=== PATIENT | female | born 1985 | race American Indian/Alaskan Native ===

== ENCOUNTER 2018-12-19 14:33 | Inpatient (IN) | payer MEDICAID, OTHER ==
[2018-12-19] MEDS ORDERED: Sodium Chloride 0.9% 1,000 ML IV ONE (15:01)
[2018-12-19] MEDS ORDERED: Ketorolac 30 MG/ML SDV IVPUSH ONE (15:01)
--- NOTE | 2018-12-19 15:19 | EDM.PDOC ---
ED HPI GENERAL MEDICAL PROBLEM - General Chief Complaint: Skin Complaint Stated Complaint: TWO HARD BOILS ON BUTTOCKS Time Seen by Provider: 12/19/18 14:39 Source of Information: Reports: Patient History Limitations: Reports: No Limitations - History of Present Illness INITIAL COMMENTS - FREE TEXT/NARRATIVE: HISTORY AND PHYSICAL: History of present illness: Patient is a 33-year-old female presents to the ED today with concern of infection/boils on her right butt cheek. Patient states she has had a history of these being infected in the past, however, over a few days a generally go away. Patient states this current infection has been ongoing for about a week and over the past few days has worsened more than her normal infections. Patient states she often has infections like this under her breasts and her armpits and groin area. Patient states she has not taken anything at home for her symptoms. Patient has subjective fevers at home but has not checked her temperature. Patient denies chest pain, shortness of breath, or cough. Denies headache, neck stiff ness, change in vision, syncope, or near syncope. Denies nausea, vomiting , abdominal pain, diarrhea, constipation, or dysuria. Has not noted any blood in urine or stool. Patient has been eating and drinking appropriately. Review of systems: As per history of present illness and below otherwise all systems reviewed and negative. Past medical history: As per history of present illness and as reviewed below otherwise noncontributory. Surgical history: As per history of present illness and as reviewed below otherwise noncontributory. Social history: See social history for further information Family history: As per history of present illness and as reviewed below otherwise noncontributory. Physical exam: General: Patient is alert, oriented, and in no acute distress. Patient laying on left side but comfortably on exam table. HEENT: Atraumatic, normocephalic, pupils equal and reactive bilaterally, negative for conjunctival pallor or scleral icterus, mucous membranes moist, TMs normal bilaterally, throat clear, neck supple, nontender, trachea midline. No drooling or trismus noted. No meningeal signs. No hot potato voice noted. Lungs: Clear to auscultation, breath sounds equal bilaterally, chest nontender. Heart: S1S2, regular rate and rhythm without overt murmur Abdomen: Obese Soft, nondistended, nontender. Negative for masses or hepatosplenomegaly. Negative for costovertebral tenderness. Pelvis: Stable nontender. Genitourinary: Deferred. Rectal: Deferred. Skin: Generalized folliculitis of skin. However, area of cellulitis of the right buttocks approximately 15c, by 11cm that severely painful to palpation. Underlying induration without obvious abscess. Area was outlined with surgical pen. Extremities: Atraumatic, negative for cords or calf pain. Neurovascular unremarkable. Neuro: Awake, alert, oriented. Cranial nerves II through XII unremarkable. Cerebellum unremarkable. Motor and sensory unremarkable throughout. Exam nonfocal. Notes: Dr. Silva was directly involved in patient care. Dr. Carrion was contacted on patient and will admit to observation. Voices understanding and is agreeable to plan of care. Denies any further questions or concerns at this time. Diagnostics: CBC, CMP, UA, lactate, blood cultures 2, Therapeutics: Saline, Toradol, vancomycin, morphine Impression: Cellulitis of right buttocks Leukocytosis Plan: 1. Admit to observation to Dr. Carrion. Definitive disposition and diagnosis as appropriate pending reevaluation and review of above. buttock Pain Score (Numeric/FACES): 9 - Related Data Allergies Allergy/AdvReac Type Severity Reaction Status Date / Time No Known Allergies Allergy Verified 12/06/14 05:34 Home Meds: Home Meds . 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: Neurological History: Reports: None Psychiatric History: Reports: None Endocrine/Metabolic History: Reports: None Hematologic History: Reports: None Oncologic (Cancer) History: Reports: None Dermatologic History: Reports: None - Infectious Disease History Infectious Disease History: Reports: MRSA - Past Surgical History Female Surgical History: Reports: None Other Musculoskeletal Surgeries/Procedures:: multiple left knee surgeries per pt Social & Family History - Family History Family Medical History: Noncontributory - Tobacco Use Smoking Status *Q: Current Every Day Smoker Years of Tobacco use: 20 Packs/Tins Daily: 1 ED ROS GENERAL - Review of Systems Review Of Systems: ROS reveals no pertinent complaints other than HPI. ED EXAM, SKIN/RASH Exam: See Below (See dictation) Course - Vital Signs Last Recorded V/S: Last Vital Signs Temp 36.6 C 12/19/18 14:44 Pulse 106 H 12/19/18 14:44 Resp 18 12/19/18 14:44 BP 141/74 H 12/19/18 14:44 Pulse Ox 95 12/19/18 14:44 - Orders/Labs/Meds Orders: Active Orders 24 hr Category Date Time Status Admission Status [Patient Status] [ADT] Stat ADT 12/19/18 16:07 Ordered CULTURE BLOOD [BC] Stat Lab 12/19/18 15:28 Received CULTURE BLOOD [BC] Stat Lab 12/19/18 15:28 Received UA RFX REI AND CULT IF INDIC [URIN] Stat Lab 12/19/18 15:01 Ordered Morphine Med 12/19/18 16:09 Once 2 mg IVPUSH ONETIME ONE Vancomycin [Vancocin] 1 gm Med 12/19/18 15:19 Active Sodium Chloride 0.9% [Normal Saline] 250 ml IV ONETIME Blood Culture x2 Reflex Set [OM.PC] Stat Oth 12/19/18 15:19 Ordered Medication Orders Vancomycin HCl 1 gm/ Sodium (Chloride) 250 mls @ 250 mls/hr IV ONETIME ONE Stop: 12/19/18 16:18 Last Admin: 12/19/18 15:44 Dose: 250 mls/hr Labs: Laboratory Tests 12/19/18 12/19/18 12/19/18 Range/Units 15:01 15:17 15:17 WBC 16.90 H (4.0-11.0) K/uL RBC 4.13 L (4.30-5.90) M/uL Hgb 12.3 (12.0-16.0) g/dL Hct 37.6 (36.0-46.0) % MCV 91.0 (80.0-98.0) fL MCH 29.8 (27.0-32.0) pg MCHC 32.7 (31.0-37.0) g/dL RDW Std Deviation 46.0 (28.0-62.0) fl RDW Coeff of Rachelle 14 (11.0-15.0) % Plt Count 235 (150-400) K/uL MPV 9.10 (7.40-12.00) fL Neut % (Auto) 83.3 H (48.0-80.0) % Lymph % (Auto) 7.5 L (16.0-40.0) % [place] % (Auto) 8.6 (0.0-15.0) % Eos % (Auto) 0.5 (0.0-7.0) % Baso % (Auto) 0.1 (0.0-1.5) % Neut # (Auto) 14.1 H (1.4-5.7) K/uL Lymph # (Auto) 1.3 (0.6-2.4) K/uL [place] # (Auto) 1.5 H (0.0-0.8) K/uL Eos # (Auto) 0.1 (0.0-0.7) K/uL Baso # (Auto) 0.0 (0.0-0.1) K/uL Nucleated RBC % 0.0 /100WBC Nucleated RBCs # 0 K/uL Lactate 1.2 (0.20-2.00) mmol/L Sodium 136 (136-145) mmol/L Potassium 3.9 (3.5-5.1) mmol/L Chloride 104 (98-107) mmol/L Carbon Dioxide 22.7 (21.0-32.0) mmol/L BUN 8 (7.0-18.0) mg/dL Creatinine 0.9 (0.6-1.0) mg/dL Est Cr Clr Drug Dosing 79.25 mL/min Estimated GFR (MDRD) > 60.0 ml/min Glucose 142 H (74-106) mg/dL Calcium 8.5 (8.5-10.1) mg/dL Total Bilirubin 0.5 (0.2-1.0) mg/dL AST 8 L (15-37) IU/L ALT 11 L (14-63) IU/L Alkaline Phosphatase 91 (46-116) U/L Total Protein 7.2 (6.4-8.2) g/dL Albumin 2.6 L (3.4-5.0) g/dL Globulin 4.6 H (2.6-4.0) g/dL Albumin/Globulin Ratio 0.6 L (0.9-1.6) Meds: Medications Generic Name Dose Route Start Last Admin Trade Name Freq PRN Reason Stop Dose Admin Vancomycin HCl 1 gm/ Sodium 250 mls @ 250 mls/hr 12/19/18 15:19 12/19/18 15: 44 Chloride IV 12/19/18 16:18 250 mls/hr ONETIME ONE Administration Discontinued Medications Generic Name Dose Route Start Last Admin Trade Name Vanessa PRN Reason Stop Dose Admin Sodium Chloride 1,000 mls @ 999 mls/hr 12/19/18 15:01 12/19/18 15:21 Normal Saline IV 12/19/18 16:01 999 mls/hr STAT ONE Administration Ketorolac Tromethamine 30 mg 12/19/18 15:01 12/19/18 15:21 Toradol IVPUSH 12/19/18 15:02 30 mg ONETIME ONE Administration Departure - Departure Time of Disposition: 16:10 Disposition: Refer to Observation Clinical Impression: Cellulitis of buttock, right Leukocytosis Qualifiers: Leukocytosis type: unspecified Qualified Code(s): D72.829 - Elevated white blood cell count, unspecified - Discharge Information Referrals: [facility] [Primary Care Provider] - - My Orders Last 24 Hours: My Active Orders 12/19/18 15:01 UA RFX REI AND CULT IF INDIC [URIN] Stat 12/19/18 15:19 Vancomycin [Vancocin] 1 gm Sodium Chloride 0.9% [Normal Saline] 250 ml IV ONETIME Blood Culture x2 Reflex Set [OM.PC] Stat 12/19/18 15:28 CULTURE BLOOD [BC] Stat CULTURE BLOOD [BC] Stat 12/19/18 16:07 Admission Status [Patient Status] [ADT] Stat 12/19/18 16:09 Morphine 2 mg IVPUSH ONETIME ONE - Assessment/Plan Last 24 Hours: My Active Orders 12/19/18 15:01 UA RFX REI AND CULT IF INDIC [URIN] Stat 12/19/18 15:19 Vancomycin [Vancocin] 1 gm Sodium Chloride 0.9% [Normal Saline] 250 ml IV ONETIME Blood Culture x2 Reflex Set [OM.PC] Stat 12/19/18 15:28 CULTURE BLOOD [BC] Stat CULTURE BLOOD [BC] Stat 12/19/18 16:07 Admission Status [Patient Status] [ADT] Stat 12/19/18 16:09 Morphine 2 mg IVPUSH ONETIME ONE
[2018-12-19 15:45] LABS: CHLORIDE,CL 104 mmol/L (98-107); SODIUM,NA 136 mmol/L (136-145)
[2018-12-19] MEDS ORDERED: Morphine 2 MG/ML Syringe IVPUSH ONE (16:09)
[2018-12-19] MEDS ORDERED: Temazepam 15 MG Cap PO PRN (16:28)
[2018-12-19] MEDS ORDERED: Ondansetron 4 MG Tab.DIS PO PRN (16:28)
[2018-12-19] MEDS ORDERED: Docusate Sodium 100 MG Cap PO PRN (16:28)
[2018-12-19] MEDS ORDERED: Enoxaparin 40 MG/0.4 ML Syringe SUBCUT SCH (16:30)
--- NOTE | 2018-12-19 16:38 | PCM.HP ---
H&P History of Present Illness - General Date of Service: 12/19/18 Admit Problem/Dx: Admission Diagnosis/Problem Admission Diagnosis/Problem Cellulitis Source of Information: Patient History Limitations: Reports: No Limitations - History of Present Illness Initial Comments - Free Text/Narative: The patient is a 33-year-old lady who has presented to the emergency department with a complaint of infection on her right buttocks. The patient says this started out as one or 2 small boils. She said that this started out and got worse on Thursday and the patient came in today out of concern for increased pain and other symptoms. The patient has a history of hidradenitis suppurativa and a history of MRSA skin infections. The patient says that she has had fever and chills with this. She has no history of diabetes mellitus. The patient says that she has pain in her right buttocks which radiates down into her hip. Patient reports that she has had some nausea associated with this. The patient has had no specific aggravating or relieving factors. The patient does not take any medications chronically. Onset of Symptoms: Reports: Gradual Duration of Symptoms: Reports: Day(s):, Getting Worse Location: Reports: Lower Extremity, Right Quality: Reports: Ache, Pressure, Throbbing Severity: Moderate Improves with: Reports: Rest Worsens with: Reports: Movement Context: Denies: Sick Contact, Trauma Associated Symptoms: Reports: Fever/Chills, Nausea/Vomiting buttock Pain Score (Numeric/FACES): 9 - Related Data Allergies/Adverse Reactions: Allergies Allergy/AdvReac Type Severity Reaction Status Date / Time No Known Allergies Allergy Verified 12/06/14 05:34 Home Medications: Home Meds . 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: Neurological History: Reports: None Psychiatric History: Reports: None Endocrine/Metabolic History: Reports: None Hematologic History: Reports: None Oncologic (Cancer) History: Reports: None Dermatologic History: Reports: Chronic Cellulitis, Other (See Below) ( Hidradenitis) - Infectious Disease History Infectious Disease History: Reports: MRSA - Past Surgical History Female Surgical History: Reports: None Other Musculoskeletal Surgeries/Procedures:: multiple left knee surgeries per pt Social & Family History - Family History Family Medical History: Noncontributory - Tobacco Use Smoking Status *Q: Current Every Day Smoker Years of Tobacco use: 20 Packs/Tins Daily: 1 - Alcohol Use Alcohol Use History: No - Living Situation & Occupation Living situation: Reports: Single, with Family Occupation: Unemployed H&P Review of Systems - Review of Systems: Review Of Systems: See Below General: Reports: Fever, Chills HEENT: Reports: No Symptoms Pulmonary: Reports: No Symptoms Cardiovascular: Reports: No Symptoms Gastrointestinal: Reports: Nausea. Denies: Vomiting Genitourinary: Reports: No Symptoms Musculoskeletal: Reports: No Symptoms Skin: Reports: Erythema, Wound Psychiatric: Reports: No Symptoms Neurological: Reports: No Symptoms Hematologic/Lymphatic: Reports: No Symptoms Immunologic: Reports: No Symptoms Exam - Exam Exam: See Below - Vital Signs Vital Signs: Last Vital Signs Temp 36.8 C 12/19/18 16:00 Pulse 85 12/19/18 16:00 Resp 16 12/19/18 16:00 BP 124/85 12/19/18 16:00 Pulse Ox 99 12/19/18 16:00 Weight: 122.47 kg - Exam Quality Assessment: No: Supplemental Oxygen General: Alert, Oriented, Cooperative, Mild Distress HEENT: Conjunctiva Clear, EACs Clear, EOMI, Nares Patent, PERRLA. No: Mucosa Moist & [place] (Dry) Neck: Supple, Trachea Midline Lungs: Clear to Auscultation, Normal Respiratory Effort Cardiovascular: Regular Rate, Regular Rhythm GI/Abdominal Exam: Normal Bowel Sounds, Soft, No Distention Back Exam: Normal Inspection, Full Range of Motion Extremities: Normal Inspection, No Pedal Edema Skin: Other (Area of cellulitis surrounding 2 boils mid gluteal area, minor drainage) Neuro Extensive - Mental Status: Alert, Oriented x3 Psychiatric: Alert, Normal Affect, Normal Mood - Patient Data Lab Results Last 24 hrs: Laboratory Results - last 24 hr 12/19/18 12/19/18 12/19/18 Range/Units 15:01 15:17 15:17 WBC 16.90 H (4.0-11.0) K/uL RBC 4.13 L (4.30-5.90) M/uL Hgb 12.3 (12.0-16.0) g/dL Hct 37.6 (36.0-46.0) % MCV 91.0 (80.0-98.0) fL MCH 29.8 (27.0-32.0) pg MCHC 32.7 (31.0-37.0) g/dL RDW Std Deviation 46.0 (28.0-62.0) fl RDW Coeff of Rachelle 14 (11.0-15.0) % Plt Count 235 (150-400) K/uL MPV 9.10 (7.40-12.00) fL Neut % (Auto) 83.3 H (48.0-80.0) % Lymph % (Auto) 7.5 L (16.0-40.0) % [place] % (Auto) 8.6 (0.0-15.0) % Eos % (Auto) 0.5 (0.0-7.0) % Baso % (Auto) 0.1 (0.0-1.5) % Neut # (Auto) 14.1 H (1.4-5.7) K/uL Lymph # (Auto) 1.3 (0.6-2.4) K/uL [place] # (Auto) 1.5 H (0.0-0.8) K/uL Eos # (Auto) 0.1 (0.0-0.7) K/uL Baso # (Auto) 0.0 (0.0-0.1) K/uL Nucleated RBC % 0.0 /100WBC Nucleated RBCs # 0 K/uL Lactate 1.2 (0.20-2.00) mmol/L Sodium 136 (136-145) mmol/L Potassium 3.9 (3.5-5.1) mmol/L Chloride 104 (98-107) mmol/L Carbon Dioxide 22.7 (21.0-32.0) mmol/L BUN 8 (7.0-18.0) mg/dL Creatinine 0.9 (0.6-1.0) mg/dL Est Cr Clr Drug Dosing 79.25 mL/min Estimated GFR (MDRD) > 60.0 ml/min Glucose 142 H (74-106) mg/dL Calcium 8.5 (8.5-10.1) mg/dL Total Bilirubin 0.5 (0.2-1.0) mg/dL AST 8 L (15-37) IU/L ALT 11 L (14-63) IU/L Alkaline Phosphatase 91 (46-116) U/L Total Protein 7.2 (6.4-8.2) g/dL Albumin 2.6 L (3.4-5.0) g/dL Globulin 4.6 H (2.6-4.0) g/dL Albumin/Globulin Ratio 0.6 L (0.9-1.6) Result Diagrams: 12/19/18 15:01 12/19/18 15:17 - Problem List (1) Cellulitis of buttock, right SNOMED Code(s): 46220166 ICD Code: L03.317 - CELLULITIS OF BUTTOCK Status: Acute Priority: High Current Visit: Yes (2) History of MRSA infection SNOMED Code(s): 203874200, 589376959 ICD Code: Z86.14 - PERSONAL HISTORY OF METHICILLIN RESIS STAPH INFECTION Status: Chronic Priority: High Current Visit: Yes (3) Hyperglycemia SNOMED Code(s): 05947105 ICD Code: R73.9 - HYPERGLYCEMIA, UNSPECIFIED Status: Acute Priority: High Current Visit: Yes (4) Leukocytosis SNOMED Code(s): 389030690, 751112334 ICD Code: D72.829 - ELEVATED WHITE BLOOD CELL COUNT, UNSPECIFIED Status: Acute Priority: High Current Visit: Yes Qualifiers: Leukocytosis type: unspecified Qualified Code(s): D72.829 - Elevated white blood cell count, unspecified (5) Morbid obesity with BMI of 40.0-44.9, adult SNOMED Code(s): 063090080, 85677628272419 ICD Code: E66.01 - MORBID (SEVERE) OBESITY DUE TO EXCESS CALORIES; Z68.41 - BODY MASS INDEX (BMI) 40.0-44.9, ADULT Status: Chronic Priority: High Current Visit: Yes (6) Tobacco abuse SNOMED Code(s): 552123777 ICD Code: Z72.0 - TOBACCO USE Status: Chronic Priority: Medium Current Visit: Yes Problem List Initiated/Reviewed/Updated: Yes Orders Last 24hrs: Active Orders 24 hr Category Date Time Status Admission Status [Patient Status] [ADT] Stat ADT 12/19/18 16:07 Active Oxygen Therapy [RC] PRN Care 12/19/18 16:28 Active Up ad Adamaris [RC] ASDIRECTED Care 12/19/18 16:28 Active VTE/DVT Education [RC] PER UNIT ROUTINE Care 12/19/18 16:28 Active Vital Signs [RC] Q4H Care 12/19/18 16:28 Active Heart Healthy Diet [DIET] Diet 12/19/18 Breakfast Active CBC WITH AUTO DIFF [HEME] AM Lab 12/20/18 05:11 Ordered COMPREHENSIVE METABOLIC PN,CMP [CHEM] AM Lab 12/20/18 05:11 Ordered CULTURE BLOOD [BC] Stat Lab 12/19/18 15:28 Received CULTURE BLOOD [BC] Stat Lab 12/19/18 15:28 Received GLYCOSYLATED HEMOGLOBIN,HGBA1C [CHEM] Routine Lab 12/19/18 16:32 Ordered UA RFX REI AND CULT IF INDIC [URIN] Stat Lab 12/19/18 15:01 Ordered Acetaminophen [Tylenol] Med 12/19/18 16:28 Ordered 650 mg PO Q4H PRN Clindamycin Phosphate [Cleocin] 300 mg Med 12/19/18 16:30 Ordered Sodium Chloride 0.9% [Normal Saline] 50 ml IV Q8H Docusate Sodium [Colace] Med 12/19/18 16:28 Ordered 100 mg PO BID PRN Enoxaparin [Lovenox] Med 12/19/18 16:30 Ordered 40 mg SUBCUT Q24H Nicotine [Habitrol] Med 12/20/18 09:00 Ordered 14 mg TRDERM DAILY Ondansetron [Zofran ODT] Med 12/19/18 16:28 Ordered 4 mg PO Q6H PRN Sodium Chloride 0.9% [Normal Saline] 1,000 ml Med 12/19/18 16:30 Ordered IV ASDIRECTED Temazepam [Restoril] Med 12/19/18 16:28 Ordered 15 mg PO BEDTIME PRN oxyCODONE Med 12/19/18 16:28 Ordered 5 mg PO Q4H PRN Blood Culture x2 Reflex Set [OM.PC] Stat Oth 12/19/18 15:19 Ordered Resuscitation Status Routine Resus Stat 12/19/18 16:28 Ordered Medication Orders Acetaminophen (Tylenol) 650 mg PO Q4H PRN PRN Reason: Pain (Mild 1-3)/fever Docusate Sodium (Colace) 100 mg PO BID PRN PRN Reason: Constipation Enoxaparin Sodium (Lovenox) 40 mg SUBCUT Q24H JON Clindamycin Phosphate 300 mg/ (Sodium Chloride) 52 mls @ 100 mls/hr IV Q8H JON Sodium Chloride (Normal Saline) 1,000 mls @ 100 mls/hr IV ASDIRECTED [facility] Nicotine (Habitrol) 14 mg TRDERM DAILY [facility] Ondansetron HCl (Zofran Odt) 4 mg PO Q6H PRN PRN Reason: nausea, able to take PO Oxycodone HCl (Oxycodone) 5 mg PO Q4H PRN PRN Reason: Pain (moderate 4-6) Temazepam (Restoril) 15 mg PO BEDTIME PRN PRN Reason: Sleep Assessment/Plan Comment:: The patient is a 33-year-old lady who has a history of hidradenitis as well as MRSA infection of the skin. The patient should also be kept on contact isolation. She will be admitted to observation secondary to cellulitis of her right buttocks. I've ordered vancomycin with pharmacy to dose as well as clindamycin 300 mg every 8 hours. Repeat laboratory studies been ordered in the morning. The patient's lactate was also noted to be normal. She does have an elevation in her blood sugar and a family history of diabetes therefore I've ordered a hemoglobin A1c. The patient has been strongly counseled with regards to smoking cessation. The patient will also be kept on a heart healthy diet while in hospital. The patient will have DVT prophylaxis with the use of Lovenox 30 mg subcutaneous daily. She is also been encouraged to ambulate. Patient's pain will be controlled with the use of narcotics as necessary. The patient should be appropriate once her leukocytosis is resolved and cellulitis is improved.
[2018-12-19 16:55] LABS: HEMOGLOBIN A1C 5.7 % (4.5-6.2)
[2018-12-19] MEDS: Sodium Chloride 0.9% 1,000 ML IV SCH (17:13)
[2018-12-19] MEDS: Clindamycin Phosphate in D5W 300 MG in Premix Bag 1 BAG IV SCH ×4 (17:13→23:30)
[2018-12-19] MEDS: Enoxaparin 40 MG/0.4 ML Syringe SUBCUT SCH (18:09)
[2018-12-19] MEDS: oxyCODONE 5 MG Tab PO PRN ×2 (19:20→23:27)
[2018-12-20] MEDS: oxyCODONE 5 MG Tab PO PRN ×4 (03:51→18:16)
[2018-12-20] MEDS: Sodium Chloride 0.9% 1,000 ML IV SCH ×3 (03:51→17:57)
[2018-12-20 06:09] LABS: CHLORIDE,CL 105 mmol/L (98-107); SODIUM,NA 137 mmol/L (136-145)
[2018-12-20] MEDS: Clindamycin Phosphate in D5W 300 MG in Premix Bag 1 BAG IV SCH ×2 (08:09)
[2018-12-20] MEDS: Nicotine 14 MG/24 Hr Patch TRDERM SCH (08:15)
[2018-12-20] MEDS: Acetaminophen 325 MG Tab PO PRN ×2 (08:28→18:16)
[2018-12-20] MEDS ORDERED: Sodium Chloride 0.9% 1,000 ML IV ONE (08:45)
--- NOTE | 2018-12-20 09:09 | PCM.PN ---
<Teresa Cavazos M - Last Filed: 12/20/18 10:29> - General Info Date of Service: 12/20/18 Admission Dx/Problem (Free Text): Admission Diagnosis/Problem Admission Diagnosis/Problem Cellulitis Subjective Update: Complains of worsening pain this morning, to R buttock. Fever this am as well. No chest pain or SOB. No abdominal pain. Functional Status: Reports: Tolerating Diet, Ambulating, Urinating. Denies: Pain Controlled - Review of Systems HEENT: Reports: No Symptoms. Denies: Headaches, Sore Throat Pulmonary: Reports: No Symptoms. Denies: Shortness of Breath Cardiovascular: Reports: No Symptoms. Denies: Chest Pain Gastrointestinal: Reports: No Symptoms. Denies: Abdominal Pain, Nausea, Vomiting Genitourinary: Reports: No Symptoms Musculoskeletal: Reports: No Symptoms Skin: Reports: Other (boil noted to R buttock, redness and tenderness) Neurological: Reports: No Symptoms Psychiatric: Reports: No Symptoms - Patient Data Vitals - Most Recent: Last Vital Signs Temp 215.2 F H 12/20/18 08:28 Pulse 100 12/20/18 08:04 Resp 20 12/20/18 08:04 BP 102/68 12/20/18 08:04 Pulse Ox 94 L 12/20/18 08:04 Weight - Most Recent: 110.818 kg I&O - Last 24 Hours: Intake & Output 12/19/18 12/20/18 12/20/18 22:59 06:59 14:59 Intake Total 390 50 Output Total 300 Balance 90 50 Lab Results Last 24 Hours: Laboratory Results - last 24 hr 12/19/18 12/19/18 12/19/18 Range/Units 15:01 15:17 15:17 WBC 16.90 H (4.0-11.0) K/uL RBC 4.13 L (4.30-5.90) M/uL Hgb 12.3 (12.0-16.0) g/dL Hct 37.6 (36.0-46.0) % MCV 91.0 (80.0-98.0) fL MCH 29.8 (27.0-32.0) pg MCHC 32.7 (31.0-37.0) g/dL RDW Std Deviation 46.0 (28.0-62.0) fl RDW Coeff of Rachelle 14 (11.0-15.0) % Plt Count 235 (150-400) K/uL MPV 9.10 (7.40-12.00) fL Neut % (Auto) 83.3 H (48.0-80.0) % Lymph % (Auto) 7.5 L (16.0-40.0) % Bay % (Auto) 8.6 (0.0-15.0) % Eos % (Auto) 0.5 (0.0-7.0) % Baso % (Auto) 0.1 (0.0-1.5) % Neut # (Auto) 14.1 H (1.4-5.7) K/uL Lymph # (Auto) 1.3 (0.6-2.4) K/uL Bay # (Auto) 1.5 H (0.0-0.8) K/uL Eos # (Auto) 0.1 (0.0-0.7) K/uL Baso # (Auto) 0.0 (0.0-0.1) K/uL Nucleated RBC % 0.0 /100WBC Nucleated RBCs # 0 K/uL Lactate 1.2 (0.20-2.00) mmol/L Sodium 136 (136-145) mmol/L Potassium 3.9 (3.5-5.1) mmol/L Chloride 104 (98-107) mmol/L Carbon Dioxide 22.7 (21.0-32.0) mmol/L BUN 8 (7.0-18.0) mg/dL Creatinine 0.9 (0.6-1.0) mg/dL Est Cr Clr Drug Dosing 79.25 mL/min Estimated GFR (MDRD) > 60.0 ml/min Glucose 142 H (74-106) mg/dL Hemoglobin A1c (4.5-6.2) % Calcium 8.5 (8.5-10.1) mg/dL Total Bilirubin 0.5 (0.2-1.0) mg/dL AST 8 L (15-37) IU/L ALT 11 L (14-63) IU/L Alkaline Phosphatase 91 (46-116) U/L Total Protein 7.2 (6.4-8.2) g/dL Albumin 2.6 L (3.4-5.0) g/dL Globulin 4.6 H (2.6-4.0) g/dL Albumin/Globulin Ratio 0.6 L (0.9-1.6) HCG, Qual (NEG) Urine Color Urine Appearance Urine pH (5.0-8.0) Ur Specific Sidney (1.001-1.035) Urine Protein (NEGATIVE) mg/dL Urine Glucose (UA) (NEGATIVE) mg/dL Urine Ketones (NEGATIVE) mg/dL Urine Occult Blood (NEGATIVE) Urine Nitrite (NEGATIVE) Urine Bilirubin (NEGATIVE) Urine Ictotest Urine Urobilinogen (<2.0) EU/dL Ur Leukocyte Esterase (NEGATIVE) Urine RBC (0-2/HPF) Urine WBC (0-5/HPF) Ur Epithelial Cells (NONE-FEW) Amorphous Sediment (NEGATIVE) Urine Bacteria (NEGATIVE) Urine Mucus (NONE-MOD) Urinalysis Comment 12/19/18 12/19/18 12/20/18 Range/Units 15:17 23:28 05:25 WBC 13.31 H (4.0-11.0) K/uL RBC 3.64 L (4.30-5.90) M/uL Hgb 10.7 L (12.0-16.0) g/dL Hct 33.4 L (36.0-46.0) % MCV 91.8 (80.0-98.0) fL MCH 29.4 (27.0-32.0) pg MCHC 32.0 (31.0-37.0) g/dL RDW Std Deviation 48.1 (28.0-62.0) fl RDW Coeff of Rachelle 14 (11.0-15.0) % Plt Count 247 (150-400) K/uL MPV 9.40 (7.40-12.00) fL Neut % (Auto) 77.4 (48.0-80.0) % Lymph % (Auto) 11.9 L (16.0-40.0) % Bay % (Auto) 9.2 (0.0-15.0) % Eos % (Auto) 1.4 (0.0-7.0) % Baso % (Auto) 0.1 (0.0-1.5) % Neut # (Auto) 10.3 H (1.4-5.7) K/uL Lymph # (Auto) 1.6 (0.6-2.4) K/uL Bay # (Auto) 1.2 H (0.0-0.8) K/uL Eos # (Auto) 0.2 (0.0-0.7) K/uL Baso # (Auto) 0.0 (0.0-0.1) K/uL Nucleated RBC % 0.0 /100WBC Nucleated RBCs # 0 K/uL Lactate (0.20-2.00) mmol/L Sodium (136-145) mmol/L Potassium (3.5-5.1) mmol/L Chloride (98-107) mmol/L Carbon Dioxide (21.0-32.0) mmol/L BUN (7.0-18.0) mg/dL Creatinine (0.6-1.0) mg/dL Est Cr Clr Drug Dosing mL/min Estimated GFR (MDRD) ml/min Glucose (74-106) mg/dL Hemoglobin A1c 5.7 (4.5-6.2) % Calcium (8.5-10.1) mg/dL Total Bilirubin (0.2-1.0) mg/dL AST (15-37) IU/L ALT (14-63) IU/L Alkaline Phosphatase (46-116) U/L Total Protein (6.4-8.2) g/dL Albumin (3.4-5.0) g/dL Globulin (2.6-4.0) g/dL Albumin/Globulin Ratio (0.9-1.6) HCG, Qual (NEG) Urine Color DARK YELLOW Urine Appearance SLT CLOUDY Urine pH 5.0 (5.0-8.0) Ur Specific Sidney >= 1.030 (1.001-1.035) Urine Protein 100 H (NEGATIVE) mg/dL Urine Glucose (UA) NEGATIVE (NEGATIVE) mg/dL Urine Ketones TRACE H (NEGATIVE) mg/dL Urine Occult Blood LARGE H (NEGATIVE) Urine Nitrite POSITIVE H (NEGATIVE) Urine Bilirubin SMALL H (NEGATIVE) Urine Ictotest NEGATIVE Urine Urobilinogen 1.0 (<2.0) EU/dL Ur Leukocyte Esterase NEGATIVE (NEGATIVE) Urine RBC 5-7 (0-2/HPF) Urine WBC 0-3 (0-5/HPF) Ur Epithelial Cells MODERATE (NONE-FEW) Amorphous Sediment LIGHT (NEGATIVE) Urine Bacteria 1+ H (NEGATIVE) Urine Mucus MODERATE (NONE-MOD) Urinalysis Comment 12/20/18 12/20/18 Range/Units 05:25 05:25 WBC (4.0-11.0) K/uL RBC (4.30-5.90) M/uL Hgb (12.0-16.0) g/dL Hct (36.0-46.0) % MCV (80.0-98.0) fL MCH (27.0-32.0) pg MCHC (31.0-37.0) g/dL RDW Std Deviation (28.0-62.0) fl RDW Coeff of Rachelle (11.0-15.0) % Plt Count (150-400) K/uL MPV (7.40-12.00) fL Neut % (Auto) (48.0-80.0) % Lymph % (Auto) (16.0-40.0) % Bay % (Auto) (0.0-15.0) % Eos % (Auto) (0.0-7.0) % Baso % (Auto) (0.0-1.5) % Neut # (Auto) (1.4-5.7) K/uL Lymph # (Auto) (0.6-2.4) K/uL Bay # (Auto) (0.0-0.8) K/uL Eos # (Auto) (0.0-0.7) K/uL Baso # (Auto) (0.0-0.1) K/uL Nucleated RBC % /100WBC Nucleated RBCs # K/uL Lactate (0.20-2.00) mmol/L Sodium 137 (136-145) mmol/L Potassium 4.1 (3.5-5.1) mmol/L Chloride 105 (98-107) mmol/L Carbon Dioxide 25.1 (21.0-32.0) mmol/L BUN 9 (7.0-18.0) mg/dL Creatinine 0.8 (0.6-1.0) mg/dL Est Cr Clr Drug Dosing 89.16 mL/min Estimated GFR (MDRD) > 60.0 ml/min Glucose 121 H (74-106) mg/dL Hemoglobin A1c (4.5-6.2) % Calcium 7.8 L (8.5-10.1) mg/dL Total Bilirubin 0.4 (0.2-1.0) mg/dL AST 8 L (15-37) IU/L ALT 12 L (14-63) IU/L Alkaline Phosphatase 79 (46-116) U/L Total Protein 6.2 L (6.4-8.2) g/dL Albumin 2.1 L (3.4-5.0) g/dL Globulin 4.1 H (2.6-4.0) g/dL Albumin/Globulin Ratio 0.5 L (0.9-1.6) HCG, Qual NEGATIVE (NEG) Urine Color Urine Appearance Urine pH (5.0-8.0) Ur Specific Sidney (1.001-1.035) Urine Protein (NEGATIVE) mg/dL Urine Glucose (UA) (NEGATIVE) mg/dL Urine Ketones (NEGATIVE) mg/dL Urine Occult Blood (NEGATIVE) Urine Nitrite (NEGATIVE) Urine Bilirubin (NEGATIVE) Urine Ictotest Urine Urobilinogen (<2.0) EU/dL Ur Leukocyte Esterase (NEGATIVE) Urine RBC (0-2/HPF) Urine WBC (0-5/HPF) Ur Epithelial Cells (NONE-FEW) Amorphous Sediment (NEGATIVE) Urine Bacteria (NEGATIVE) Urine Mucus (NONE-MOD) Urinalysis Comment Med Orders - Current: Current Medications Acetaminophen (Tylenol) 650 mg PO Q4H PRN PRN Reason: Pain (Mild 1-3)/fever Last Admin: 12/20/18 08:28 Dose: 650 mg Docusate Sodium (Colace) 100 mg PO BID PRN PRN Reason: Constipation Enoxaparin Sodium (Lovenox) 40 mg SUBCUT Q24H [facility] Last Admin: 12/19/18 18:09 Dose: 40 mg Clindamycin Phosphate 300 mg/ (Premix) 50 mls @ 100 mls/hr IV Q8H JON Last Admin: 12/20/18 08:09 Dose: 100 mls/hr Piperacillin Sod/Tazobactam (Sod 3.375 gm/ Sodium Chloride) 50 mls @ 100 mls/ hr IV Q6H JON Sodium Chloride (Normal Saline) 1,000 mls @ 999 mls/hr IV .Bolus ONE Stop: 12/20/18 09:45 Sodium Chloride (Normal Saline) 1,000 mls @ 150 mls/hr IV ASDIRECTED [facility] Morphine Sulfate (Morphine) 2 mg IVPUSH Q3H PRN PRN Reason: severe Pain Nicotine (Habitrol) 14 mg TRDERM DAILY [facility] Last Admin: 12/20/18 08:15 Dose: Not Given Ondansetron HCl (Zofran Odt) 4 mg PO Q6H PRN PRN Reason: nausea, able to take PO Oxycodone HCl (Oxycodone) 5 mg PO Q4H PRN PRN Reason: Pain (moderate 4-6) Last Admin: 12/20/18 08:07 Dose: 5 mg Temazepam (Restoril) 15 mg PO BEDTIME PRN PRN Reason: Sleep Discontinued Medications Enoxaparin Sodium (Lovenox) 40 mg SUBCUT Q24H [facility] Last Admin: 12/19/18 18:42 Dose: Not Given Sodium Chloride (Normal Saline) 1,000 mls @ 999 mls/hr IV STAT ONE Stop: 12/19/18 16:01 Last Admin: 12/19/18 15:21 Dose: 999 mls/hr Vancomycin HCl 1 gm/ Sodium (Chloride) 250 mls @ 250 mls/hr IV ONETIME ONE Stop: 12/19/18 16:18 Last Admin: 12/19/18 15:44 Dose: 250 mls/hr Sodium Chloride (Normal Saline) 1,000 mls @ 100 mls/hr IV ASDIRECTED [facility] Last Admin: 12/20/18 03:51 Dose: 100 mls/hr Ketorolac Tromethamine (Toradol) 30 mg IVPUSH ONETIME ONE Stop: 12/19/18 15:02 Last Admin: 12/19/18 15:21 Dose: 30 mg Morphine Sulfate (Morphine) 2 mg IVPUSH ONETIME ONE Stop: 12/19/18 16:10 Last Admin: 12/19/18 16:15 Dose: 2 mg - Exam General: Alert, Oriented, Cooperative, Mild Distress (pain to R buttock) Neck: Supple Lungs: Clear to Auscultation, Normal Respiratory Effort Cardiovascular: Regular Rate, Regular Rhythm GI/Abdominal Exam: Normal Bowel Sounds, Soft, Non-Tender Extremities: Normal Inspection, Normal Range of Motion, Non-Tender, No Pedal Edema Wound/Incisions: Erythema (and induration to R gluteal region with two pustules noted with surround induration and erythema. No drainage or fluctuance noted. Multiple old healing abrasions as well.) Neurological: No New Focal Deficit Psy/Mental Status: Alert, Normal Affect, Normal Mood - Problem List & Annotations (1) Cellulitis of buttock, right SNOMED Code(s): 69282810 Code(s): L03.317 - CELLULITIS OF BUTTOCK Status: Acute Priority: High Current Visit: Yes (2) Leukocytosis SNOMED Code(s): 600913565, 947779565 Code(s): D72.829 - ELEVATED WHITE BLOOD CELL COUNT, UNSPECIFIED Status: Acute Priority: High Current Visit: Yes Qualifiers: Leukocytosis type: unspecified Qualified Code(s): D72.829 - Elevated white blood cell count, unspecified (3) Bacterial vaginosis SNOMED Code(s): 435670095 Code(s): N76.0 - ACUTE VAGINITIS; B96.89 - OTH BACTERIAL AGENTS THE CAUSE OF DISEASES CLASSD [id number] Status: Acute Current Visit: Yes (4) History of MRSA infection SNOMED Code(s): 276805728, 161659716 Code(s): Z86.14 - PERSONAL HISTORY OF METHICILLIN RESIS STAPH INFECTION Status: Chronic Priority: High Current Visit: Yes (5) Morbid obesity with BMI of 40.0-44.9, adult SNOMED Code(s): 342816065, 86748040182566 Code(s): E66.01 - MORBID (SEVERE) OBESITY DUE TO EXCESS CALORIES; Z68.41 - BODY MASS INDEX (BMI) 40.0-44.9, ADULT Status: Chronic Priority: High Current Visit: Yes (6) Tobacco abuse SNOMED Code(s): 997586222 Code(s): Z72.0 - TOBACCO USE Status: Chronic Priority: Medium Current Visit: Yes - Problem List Review Problem List Initiated/Reviewed/Updated: Yes - My Orders Last 24 Hours: My Active Orders 12/20/18 08:45 Sodium Chloride 0.9% [Normal Saline] 1,000 ml IV .Bolus 12/20/18 08:46 Sodium Chloride 0.9% [Normal Saline] 1,000 ml IV ASDIRECTED 12/20/18 08:47 Pelvis w Cont [CT] Urgent 12/20/18 08:54 Consult to Physician [CONS] Routine 12/20/18 08:55 Notify Provider Consults [RC] ASDIRECTED Morphine 2 mg IVPUSH Q3H PRN 12/20/18 09:00 Piperacillin/Tazobactam [Piperacil-Tazobact] 3.375 gm Sodium Chloride 0.9% [ Normal Saline] 50 ml IV Q6H - Plan Plan:: This 33 year old female admitted with R gluteal cellulitis 1. Cellulitis: Having significant pain this morning. Obtained CT which revealed R gluteal cellulitis with underlying edema, a defined abscess is not identified. Continue Vancomcyin and will start Zosyn. Give bolus of IV fluids now due to BP 102 SBP and fever. Increase IVFs to NS 150 ml/hr. Leukocytosis improving. BC pending. Add Morphine for pain control. Consult Dr Riggs. 2. Bacterial vaginosis: Start Flagyl 500 mg PO BID 3. Elevated BS: A1c 5.7. Monitor. VTE Prophylaxis: Lovenox Dispo: 1-2 days <Felix Carrion - Last Filed: 12/20/18 15:07> - General Info Admission Dx/Problem (Free Text): I have seen and examined to patient independently of Teresa Cavazos CNP. I have discussed the case for care of this patient with her. I have reviewed and approve of the plan of care as outlined by LISA. Please see orders. - Patient Data Vitals - Most Recent: Last Vital Signs Temp 36.6 C 12/20/18 12:00 Pulse 76 12/20/18 12:00 Resp 18 12/20/18 12:00 BP 105/56 L 12/20/18 12:00 Pulse Ox 98 12/20/18 12:00 I&O - Last 24 Hours: Intake & Output 12/20/18 12/20/18 12/20/18 06:59 14:59 22:59 Intake Total 390 600 Output Total 300 Balance 90 600 Lab Results Last 24 Hours: Laboratory Results - last 24 hr 12/19/18 12/19/18 12/19/18 Range/Units 15:01 15:17 15:17 WBC 16.90 H (4.0-11.0) K/uL RBC 4.13 L (4.30-5.90) M/uL Hgb 12.3 (12.0-16.0) g/dL Hct 37.6 (36.0-46.0) % MCV 91.0 (80.0-98.0) fL MCH 29.8 (27.0-32.0) pg MCHC 32.7 (31.0-37.0) g/dL RDW Std Deviation 46.0 (28.0-62.0) fl RDW Coeff of Rachelle 14 (11.0-15.0) % Plt Count 235 (150-400) K/uL MPV 9.10 (7.40-12.00) fL Neut % (Auto) 83.3 H (48.0-80.0) % Lymph % (Auto) 7.5 L (16.0-40.0) % Bay % (Auto) 8.6 (0.0-15.0) % Eos % (Auto) 0.5 (0.0-7.0) % Baso % (Auto) 0.1 (0.0-1.5) % Neut # (Auto) 14.1 H (1.4-5.7) K/uL Lymph # (Auto) 1.3 (0.6-2.4) K/uL Bay # (Auto) 1.5 H (0.0-0.8) K/uL Eos # (Auto) 0.1 (0.0-0.7) K/uL Baso # (Auto) 0.0 (0.0-0.1) K/uL Nucleated RBC % 0.0 /100WBC Nucleated RBCs # 0 K/uL Lactate 1.2 (0.20-2.00) mmol/L Sodium 136 (136-145) mmol/L Potassium 3.9 (3.5-5.1) mmol/L Chloride 104 (98-107) mmol/L Carbon Dioxide 22.7 (21.0-32.0) mmol/L BUN 8 (7.0-18.0) mg/dL Creatinine 0.9 (0.6-1.0) mg/dL Est Cr Clr Drug Dosing 79.25 mL/min Estimated GFR (MDRD) > 60.0 ml/min Glucose 142 H (74-106) mg/dL Hemoglobin A1c (4.5-6.2) % Calcium 8.5 (8.5-10.1) mg/dL Total Bilirubin 0.5 (0.2-1.0) mg/dL AST 8 L (15-37) IU/L ALT 11 L (14-63) IU/L Alkaline Phosphatase 91 (46-116) U/L Total Protein 7.2 (6.4-8.2) g/dL Albumin 2.6 L (3.4-5.0) g/dL Globulin 4.6 H (2.6-4.0) g/dL Albumin/Globulin Ratio 0.6 L (0.9-1.6) HCG, Qual (NEG) Urine Color Urine Appearance Urine pH (5.0-8.0) Ur Specific Sidney (1.001-1.035) Urine Protein (NEGATIVE) mg/dL Urine Glucose (UA) (NEGATIVE) mg/dL Urine Ketones (NEGATIVE) mg/dL Urine Occult Blood (NEGATIVE) Urine Nitrite (NEGATIVE) Urine Bilirubin (NEGATIVE) Urine Ictotest Urine Urobilinogen (<2.0) EU/dL Ur Leukocyte Esterase (NEGATIVE) Urine RBC (0-2/HPF) Urine WBC (0-5/HPF) Ur Epithelial Cells (NONE-FEW) Amorphous Sediment (NEGATIVE) Urine Bacteria (NEGATIVE) Urine Mucus (NONE-MOD) Urinalysis Comment 12/19/18 12/19/18 12/20/18 Range/Units 15:17 23:28 05:25 WBC 13.31 H (4.0-11.0) K/uL RBC 3.64 L (4.30-5.90) M/uL Hgb 10.7 L (12.0-16.0) g/dL Hct 33.4 L (36.0-46.0) % MCV 91.8 (80.0-98.0) fL MCH 29.4 (27.0-32.0) pg MCHC 32.0 (31.0-37.0) g/dL RDW Std Deviation 48.1 (28.0-62.0) fl RDW Coeff of Rachelle 14 (11.0-15.0) % Plt Count 247 (150-400) K/uL MPV 9.40 (7.40-12.00) fL Neut % (Auto) 77.4 (48.0-80.0) % Lymph % (Auto) 11.9 L (16.0-40.0) % Bay % (Auto) 9.2 (0.0-15.0) % Eos % (Auto) 1.4 (0.0-7.0) % Baso % (Auto) 0.1 (0.0-1.5) % Neut # (Auto) 10.3 H (1.4-5.7) K/uL Lymph # (Auto) 1.6 (0.6-2.4) K/uL Bay # (Auto) 1.2 H (0.0-0.8) K/uL Eos # (Auto) 0.2 (0.0-0.7) K/uL Baso # (Auto) 0.0 (0.0-0.1) K/uL Nucleated RBC % 0.0 /100WBC Nucleated RBCs # 0 K/uL Lactate (0.20-2.00) mmol/L Sodium (136-145) mmol/L Potassium (3.5-5.1) mmol/L Chloride (98-107) mmol/L Carbon Dioxide (21.0-32.0) mmol/L BUN (7.0-18.0) mg/dL Creatinine (0.6-1.0) mg/dL Est Cr Clr Drug Dosing mL/min Estimated GFR (MDRD) ml/min Glucose (74-106) mg/dL Hemoglobin A1c 5.7 (4.5-6.2) % Calcium (8.5-10.1) mg/dL Total Bilirubin (0.2-1.0) mg/dL AST (15-37) IU/L ALT (14-63) IU/L Alkaline Phosphatase (46-116) U/L Total Protein (6.4-8.2) g/dL Albumin (3.4-5.0) g/dL Globulin (2.6-4.0) g/dL Albumin/Globulin Ratio (0.9-1.6) HCG, Qual (NEG) Urine Color DARK YELLOW Urine Appearance SLT CLOUDY Urine pH 5.0 (5.0-8.0) Ur Specific Sidney >= 1.030 (1.001-1.035) Urine Protein 100 H (NEGATIVE) mg/dL Urine Glucose (UA) NEGATIVE (NEGATIVE) mg/dL Urine Ketones TRACE H (NEGATIVE) mg/dL Urine Occult Blood LARGE H (NEGATIVE) Urine Nitrite POSITIVE H (NEGATIVE) Urine Bilirubin SMALL H (NEGATIVE) Urine Ictotest NEGATIVE Urine Urobilinogen 1.0 (<2.0) EU/dL Ur Leukocyte Esterase NEGATIVE (NEGATIVE) Urine RBC 5-7 (0-2/HPF) Urine WBC 0-3 (0-5/HPF) Ur Epithelial Cells MODERATE (NONE-FEW) Amorphous Sediment LIGHT (NEGATIVE) Urine Bacteria 1+ H (NEGATIVE) Urine Mucus MODERATE (NONE-MOD) Urinalysis Comment 12/20/18 12/20/18 Range/Units 05:25 05:25 WBC (4.0-11.0) K/uL RBC (4.30-5.90) M/uL Hgb (12.0-16.0) g/dL Hct (36.0-46.0) % MCV (80.0-98.0) fL MCH (27.0-32.0) pg MCHC (31.0-37.0) g/dL RDW Std Deviation (28.0-62.0) fl RDW Coeff of Rachelle (11.0-15.0) % Plt Count (150-400) K/uL MPV (7.40-12.00) fL Neut % (Auto) (48.0-80.0) % Lymph % (Auto) (16.0-40.0) % Bay % (Auto) (0.0-15.0) % Eos % (Auto) (0.0-7.0) % Baso % (Auto) (0.0-1.5) % Neut # (Auto) (1.4-5.7) K/uL Lymph # (Auto) (0.6-2.4) K/uL Bay # (Auto) (0.0-0.8) K/uL Eos # (Auto) (0.0-0.7) K/uL Baso # (Auto) (0.0-0.1) K/uL Nucleated RBC % /100WBC Nucleated RBCs # K/uL Lactate (0.20-2.00) mmol/L Sodium 137 (136-145) mmol/L Potassium 4.1 (3.5-5.1) mmol/L Chloride 105 (98-107) mmol/L Carbon Dioxide 25.1 (21.0-32.0) mmol/L BUN 9 (7.0-18.0) mg/dL Creatinine 0.8 (0.6-1.0) mg/dL Est Cr Clr Drug Dosing 89.16 mL/min Estimated GFR (MDRD) > 60.0 ml/min Glucose 121 H (74-106) mg/dL Hemoglobin A1c (4.5-6.2) % Calcium 7.8 L (8.5-10.1) mg/dL Total Bilirubin 0.4 (0.2-1.0) mg/dL AST 8 L (15-37) IU/L ALT 12 L (14-63) IU/L Alkaline Phosphatase 79 (46-116) U/L Total Protein 6.2 L (6.4-8.2) g/dL Albumin 2.1 L (3.4-5.0) g/dL Globulin 4.1 H (2.6-4.0) g/dL Albumin/Globulin Ratio 0.5 L (0.9-1.6) HCG, Qual NEGATIVE (NEG) Urine Color Urine Appearance Urine pH (5.0-8.0) Ur Specific Sidney (1.001-1.035) Urine Protein (NEGATIVE) mg/dL Urine Glucose (UA) (NEGATIVE) mg/dL Urine Ketones (NEGATIVE) mg/dL Urine Occult Blood (NEGATIVE) Urine Nitrite (NEGATIVE) Urine Bilirubin (NEGATIVE) Urine Ictotest Urine Urobilinogen (<2.0) EU/dL Ur Leukocyte Esterase (NEGATIVE) Urine RBC (0-2/HPF) Urine WBC (0-5/HPF) Ur Epithelial Cells (NONE-FEW) Amorphous Sediment (NEGATIVE) Urine Bacteria (NEGATIVE) Urine Mucus (NONE-MOD) Urinalysis Comment Med Orders - Current: Current Medications Acetaminophen (Tylenol) 650 mg PO Q4H PRN PRN Reason: Pain (Mild 1-3)/fever Last Admin: 12/20/18 08:28 Dose: 650 mg Docusate Sodium (Colace) 100 mg PO BID PRN PRN Reason: Constipation Enoxaparin Sodium (Lovenox) 40 mg SUBCUT Q24H [facility] Last Admin: 12/19/18 18:09 Dose: 40 mg Piperacillin Sod/Tazobactam (Sod 3.375 gm/ Sodium Chloride) 50 mls @ 100 mls/ hr IV Q6H [facility] Last Admin: 12/20/18 09:53 Dose: 100 mls/hr Sodium Chloride (Normal Saline) 1,000 mls @ 150 mls/hr IV ASDIRECTED [facility] Last Admin: 12/20/18 11:37 Dose: 150 mls/hr Vancomycin HCl 1.5 gm/ Sodium (Chloride) 500 mls @ 250 mls/hr IV Q8H [facility] Last Admin: 12/20/18 11:36 Dose: 250 mls/hr Metronidazole (Metronidazole) 500 mg PO Q12HR [facility] Last Admin: 12/20/18 12:52 Dose: 500 mg Morphine Sulfate (Morphine) 2 mg IVPUSH Q3H PRN PRN Reason: severe Pain Last Admin: 12/20/18 09:48 Dose: 2 mg Nicotine (Habitrol) 14 mg TRDERM DAILY [facility] Last Admin: 12/20/18 08:15 Dose: Not Given Ondansetron HCl (Zofran Odt) 4 mg PO Q6H PRN PRN Reason: nausea, able to take PO Oxycodone HCl (Oxycodone) 5 mg PO Q4H PRN PRN Reason: Pain (moderate 4-6) Last Admin: 12/20/18 12:52 Dose: 5 mg Temazepam (Restoril) 15 mg PO BEDTIME PRN PRN Reason: Sleep Vancomycin HCl (Pharmacy To Dose - Vancomycin) 1 dose .XX ASDIRECTED [facility] Discontinued Medications Enoxaparin Sodium (Lovenox) 40 mg SUBCUT Q24H [facility] Last Admin: 12/19/18 18:42 Dose: Not Given Sodium Chloride (Normal Saline) 1,000 mls @ 999 mls/hr IV STAT ONE Stop: 12/19/18 16:01 Last Admin: 12/19/18 15:21 Dose: 999 mls/hr Vancomycin HCl 1 gm/ Sodium (Chloride) 250 mls @ 250 mls/hr IV ONETIME ONE Stop: 12/19/18 16:18 Last Admin: 12/19/18 15:44 Dose: 250 mls/hr Clindamycin Phosphate 300 mg/ (Premix) 50 mls @ 100 mls/hr IV Q8H [facility] Last Admin: 12/20/18 08:09 Dose: 100 mls/hr Sodium Chloride (Normal Saline) 1,000 mls @ 100 mls/hr IV ASDIRECTED [facility] Last Admin: 12/20/18 03:51 Dose: 100 mls/hr Sodium Chloride (Normal Saline) 1,000 mls @ 999 mls/hr IV .Bolus ONE Stop: 12/20/18 09:45 Last Admin: 12/20/18 09:53 Dose: 999 mls/hr Iopamidol (Isovue Multipack-370 (76%)) 90 ml IVPUSH ONETIME STA Stop: 12/20/18 10:45 Last Admin: 12/20/18 10:46 Dose: 90 ml Ketorolac Tromethamine (Toradol) 30 mg IVPUSH ONETIME ONE Stop: 12/19/18 15:02 Last Admin: 12/19/18 15:21 Dose: 30 mg Morphine Sulfate (Morphine) 2 mg IVPUSH ONETIME ONE Stop: 12/19/18 16:10 Last Admin: 12/19/18 16:15 Dose: 2 mg - Problem List & Annotations (1) Cellulitis of buttock, right SNOMED Code(s): 80975985 Code(s): L03.317 - CELLULITIS OF BUTTOCK Status: Acute Priority: High Current Visit: Yes (2) History of MRSA infection SNOMED Code(s): 828241146, 549227224 Code(s): Z86.14 - PERSONAL HISTORY OF METHICILLIN RESIS STAPH INFECTION Status: Chronic Priority: High Current Visit: Yes (3) Hyperglycemia SNOMED Code(s): 51999846 Code(s): R73.9 - HYPERGLYCEMIA, UNSPECIFIED Status: Acute Priority: High Current Visit: Yes (4) Leukocytosis SNOMED Code(s): 600774379, 958468005 Code(s): D72.829 - ELEVATED WHITE BLOOD CELL COUNT, UNSPECIFIED Status: Acute Priority: High Current Visit: Yes Qualifiers: Leukocytosis type: unspecified Qualified Code(s): D72.829 - Elevated white blood cell count, unspecified (5) Morbid obesity with BMI of 40.0-44.9, adult SNOMED Code(s): 640218461, 80694090348261 Code(s): E66.01 - MORBID (SEVERE) OBESITY DUE TO EXCESS CALORIES; Z68.41 - BODY MASS INDEX (BMI) 40.0-44.9, ADULT Status: Chronic Priority: High Current Visit: Yes (6) Tobacco abuse SNOMED Code(s): 216784183 Code(s): Z72.0 - TOBACCO USE Status: Chronic Priority: Medium Current Visit: Yes - My Orders Last 24 Hours: My Active Orders 12/19/18 16:28 Oxygen Therapy [RC] PRN Up ad Adamaris [RC] ASDIRECTED VTE/DVT Education [RC] PER UNIT ROUTINE Vital Signs [RC] Q4H Acetaminophen [Tylenol] 650 mg PO Q4H PRN Docusate Sodium [Colace] 100 mg PO BID PRN Ondansetron [Zofran ODT] 4 mg PO Q6H PRN Temazepam [Restoril] 15 mg PO BEDTIME PRN oxyCODONE 5 mg PO Q4H PRN Resuscitation Status Routine 12/19/18 18:00 Enoxaparin [Lovenox] 40 mg SUBCUT Q24H 12/20/18 09:00 Nicotine [Habitrol] 14 mg TRDERM DAILY 12/20/18 11:00 Vancomycin 1.5 gm Sodium Chloride 0.9% [Normal Saline] 500 ml IV Q8H 12/21/18 10:30 VANCOMYCIN TROUGH [CHEM] Routine
[2018-12-20] MEDS: Morphine 2 MG/ML Syringe IVPUSH PRN ×2 (09:48→15:42)
[2018-12-20] MEDS: Piperacillin/Tazobactam 3.375 GM in Sodium Chloride 0.9% 50 ML IV SCH ×3 (09:53→20:47)
--- NOTE | 2018-12-20 10:28 | CT ---
EXAMINATION: Pelvis with contrast HISTORY: Cellulitis COMPARISON: 05/14/2010 TECHNIQUE: Axial CT imaging obtained through the pelvis following administration of 90 mL of Isovue-370 left hand. Coronal and sagittal reconstructions obtained. FINDINGS: The visualized large and small bowel are normal in caliber without evidence of obstruction. The appendix is normal. No inferior retroperitoneal or pelvic lymphadenopathy. A few moderately prominent right inguinal lymph nodes are noted, likely reactive. Urinary bladder is minimally filled. Uterus and ovaries appear normal. There is moderate subcutaneous edema along the right gluteal region without a developing underlying fluid collection. Visualized osseous structures appear normal. IMPRESSION: 1. Right gluteal cellulitis with underlying edema. A defined abscess is not identified at this time.
[2018-12-20] MEDS ORDERED: Iopamidol 755 MG/ML 500 ML Multipack Bottle IVPUSH STA (10:44)
[2018-12-20] MEDS: Vancomycin 1.5 GM in Sodium Chloride 0.9% 500 ML IV SCH ×2 (11:36→18:00)
--- NOTE | 2018-12-20 12:27 | PCM.CONS ---
H&P History of Present Illness - General Date of Service: 12/20/18 Admit Problem/Dx: Admission Diagnosis/Problem Admission Diagnosis/Problem Cellulitis Source of Information: Patient History Limitations: Reports: No Limitations - History of Present Illness Initial Comments - Free Text/Narative: Patient is a 33-year-old female with a history of MRSA infections who presents with right buttocks swelling and pain. She has a history of boils/pimples/ abscesses in the past and these have tested positive for MRSA. She had 2 small lesions start her buttocks on and they have progressed. She states that she had subjective fevers and chills. The pain is in her right buttocks now and travels down her leg. She was admitted to the hospitalist service with cellulitis and a white count of 16,000. She was placed on clindamycin. This morning her white count is down but her pain is worse. She's had some drainage from one of the lesions. Her blood pressure and heart rate have been stable but she has had fevers since admission. buttock Pain Score (Numeric/FACES): 5 - Related Data Allergies/Adverse Reactions: Allergies Allergy/AdvReac Type Severity Reaction Status Date / Time No Known Allergies Allergy Verified 12/06/14 05:34 Home Medications: Home Meds . [No Known Home Meds] 12/19/18 [History] Past Medical History HEENT History: Reports: None Cardiovascular History: Reports: None Respiratory History: Reports: None Gastrointestinal History: Reports: None Genitourinary History: Reports: None LPN History: Reports: Neurological History: Reports: None Psychiatric History: Reports: None Endocrine/Metabolic History: Reports: None Hematologic History: Reports: None Oncologic (Cancer) History: Reports: None Dermatologic History: Reports: Chronic Cellulitis, Other (See Below) - Infectious Disease History Infectious Disease History: Reports: Chicken Pox, MRSA - Past Surgical History Female Surgical History: Reports: None Other Musculoskeletal Surgeries/Procedures:: multiple left knee surgeries per pt Social & Family History - Family History Family Medical History: Noncontributory - Tobacco Use Smoking Status *Q: Current Every Day Smoker Years of Tobacco use: 19 Packs/Tins Daily: 0.5 Second Hand Smoke Exposure: Yes - Caffeine Use Caffeine Use: Reports: Soda - Alcohol Use Days Per Week of Alcohol Use: 1 Number of Drinks Per Day: 3 Total Drinks Per Week: 3 Date of Last Drink: 12/16/18 - Recreational Drug Use Recreational Drug Use: No - Living Situation & Occupation Living situation: Reports: Single, with Family Occupation: Unemployed H&P Review of Systems - Review of Systems: Review Of Systems: ROS reveals no pertinent complaints other than HPI. Exam - Exam Exam: See Below - Vital Signs Vital Signs: Last Vital Signs Temp 36.6 C 12/20/18 12:00 Pulse 76 12/20/18 12:00 Resp 18 12/20/18 12:00 BP 105/56 L 12/20/18 12:00 Pulse Ox 98 12/20/18 12:00 Weight: 110.818 kg - Exam General: Alert, Oriented HEENT: Conjunctiva Clear, Mucosa Moist & [place] Lungs: Normal Respiratory Effort Cardiovascular: Regular Rate Back Exam: Normal Inspection Extremities: Normal Inspection Skin: Other (Multiple small superficial lesions on the right buttocks. One of these has a small amount of serosanguineous drainage. One other has a small pinpoint area of purulence. The right buttocks is indurated and erythematous. It is tender to touch. I feel no crepitus.) - Patient Data Lab Results Last 24 hrs: Laboratory Results - last 24 hr 12/19/18 12/19/18 12/19/18 Range/Units 15:01 15:17 15:17 WBC 16.90 H (4.0-11.0) K/uL RBC 4.13 L (4.30-5.90) M/uL Hgb 12.3 (12.0-16.0) g/dL Hct 37.6 (36.0-46.0) % MCV 91.0 (80.0-98.0) fL MCH 29.8 (27.0-32.0) pg MCHC 32.7 (31.0-37.0) g/dL RDW Std Deviation 46.0 (28.0-62.0) fl RDW Coeff of Rachelle 14 (11.0-15.0) % Plt Count 235 (150-400) K/uL MPV 9.10 (7.40-12.00) fL Neut % (Auto) 83.3 H (48.0-80.0) % Lymph % (Auto) 7.5 L (16.0-40.0) % [place] % (Auto) 8.6 (0.0-15.0) % Eos % (Auto) 0.5 (0.0-7.0) % Baso % (Auto) 0.1 (0.0-1.5) % Neut # (Auto) 14.1 H (1.4-5.7) K/uL Lymph # (Auto) 1.3 (0.6-2.4) K/uL [place] # (Auto) 1.5 H (0.0-0.8) K/uL Eos # (Auto) 0.1 (0.0-0.7) K/uL Baso # (Auto) 0.0 (0.0-0.1) K/uL Nucleated RBC % 0.0 /100WBC Nucleated RBCs # 0 K/uL Lactate 1.2 (0.20-2.00) mmol/L Sodium 136 (136-145) mmol/L Potassium 3.9 (3.5-5.1) mmol/L Chloride 104 (98-107) mmol/L Carbon Dioxide 22.7 (21.0-32.0) mmol/L BUN 8 (7.0-18.0) mg/dL Creatinine 0.9 (0.6-1.0) mg/dL Est Cr Clr Drug Dosing 79.25 mL/min Estimated GFR (MDRD) > 60.0 ml/min Glucose 142 H (74-106) mg/dL Hemoglobin A1c (4.5-6.2) % Calcium 8.5 (8.5-10.1) mg/dL Total Bilirubin 0.5 (0.2-1.0) mg/dL AST 8 L (15-37) IU/L ALT 11 L (14-63) IU/L Alkaline Phosphatase 91 (46-116) U/L Total Protein 7.2 (6.4-8.2) g/dL Albumin 2.6 L (3.4-5.0) g/dL Globulin 4.6 H (2.6-4.0) g/dL Albumin/Globulin Ratio 0.6 L (0.9-1.6) HCG, Qual (NEG) Urine Color Urine Appearance Urine pH (5.0-8.0) Ur Specific [place] (1.001-1.035) Urine Protein (NEGATIVE) mg/dL Urine Glucose (UA) (NEGATIVE) mg/dL Urine Ketones (NEGATIVE) mg/dL Urine Occult Blood (NEGATIVE) Urine Nitrite (NEGATIVE) Urine Bilirubin (NEGATIVE) Urine Ictotest Urine Urobilinogen (<2.0) EU/dL Ur Leukocyte Esterase (NEGATIVE) Urine RBC (0-2/HPF) Urine WBC (0-5/HPF) Ur Epithelial Cells (NONE-FEW) Amorphous Sediment (NEGATIVE) Urine Bacteria (NEGATIVE) Urine Mucus (NONE-MOD) Urinalysis Comment 12/19/18 12/19/18 12/20/18 Range/Units 15:17 23:28 05:25 WBC 13.31 H (4.0-11.0) K/uL RBC 3.64 L (4.30-5.90) M/uL Hgb 10.7 L (12.0-16.0) g/dL Hct 33.4 L (36.0-46.0) % MCV 91.8 (80.0-98.0) fL MCH 29.4 (27.0-32.0) pg MCHC 32.0 (31.0-37.0) g/dL RDW Std Deviation 48.1 (28.0-62.0) fl RDW Coeff of Rachelle 14 (11.0-15.0) % Plt Count 247 (150-400) K/uL MPV 9.40 (7.40-12.00) fL Neut % (Auto) 77.4 (48.0-80.0) % Lymph % (Auto) 11.9 L (16.0-40.0) % [place] % (Auto) 9.2 (0.0-15.0) % Eos % (Auto) 1.4 (0.0-7.0) % Baso % (Auto) 0.1 (0.0-1.5) % Neut # (Auto) 10.3 H (1.4-5.7) K/uL Lymph # (Auto) 1.6 (0.6-2.4) K/uL [place] # (Auto) 1.2 H (0.0-0.8) K/uL Eos # (Auto) 0.2 (0.0-0.7) K/uL Baso # (Auto) 0.0 (0.0-0.1) K/uL Nucleated RBC % 0.0 /100WBC Nucleated RBCs # 0 K/uL Lactate (0.20-2.00) mmol/L Sodium (136-145) mmol/L Potassium (3.5-5.1) mmol/L Chloride (98-107) mmol/L Carbon Dioxide (21.0-32.0) mmol/L BUN (7.0-18.0) mg/dL Creatinine (0.6-1.0) mg/dL Est Cr Clr Drug Dosing mL/min Estimated GFR (MDRD) ml/min Glucose (74-106) mg/dL Hemoglobin A1c 5.7 (4.5-6.2) % Calcium (8.5-10.1) mg/dL Total Bilirubin (0.2-1.0) mg/dL AST (15-37) IU/L ALT (14-63) IU/L Alkaline Phosphatase (46-116) U/L Total Protein (6.4-8.2) g/dL Albumin (3.4-5.0) g/dL Globulin (2.6-4.0) g/dL Albumin/Globulin Ratio (0.9-1.6) HCG, Qual (NEG) Urine Color DARK YELLOW Urine Appearance SLT CLOUDY Urine pH 5.0 (5.0-8.0) Ur Specific [place] >= 1.030 (1.001-1.035) Urine Protein 100 H (NEGATIVE) mg/dL Urine Glucose (UA) NEGATIVE (NEGATIVE) mg/dL Urine Ketones TRACE H (NEGATIVE) mg/dL Urine Occult Blood LARGE H (NEGATIVE) Urine Nitrite POSITIVE H (NEGATIVE) Urine Bilirubin SMALL H (NEGATIVE) Urine Ictotest NEGATIVE Urine Urobilinogen 1.0 (<2.0) EU/dL Ur Leukocyte Esterase NEGATIVE (NEGATIVE) Urine RBC 5-7 (0-2/HPF) Urine WBC 0-3 (0-5/HPF) Ur Epithelial Cells MODERATE (NONE-FEW) Amorphous Sediment LIGHT (NEGATIVE) Urine Bacteria 1+ H (NEGATIVE) Urine Mucus MODERATE (NONE-MOD) Urinalysis Comment 12/20/18 12/20/18 Range/Units 05:25 05:25 WBC (4.0-11.0) K/uL RBC (4.30-5.90) M/uL Hgb (12.0-16.0) g/dL Hct (36.0-46.0) % MCV (80.0-98.0) fL MCH (27.0-32.0) pg MCHC (31.0-37.0) g/dL RDW Std Deviation (28.0-62.0) fl RDW Coeff of Rachelle (11.0-15.0) % Plt Count (150-400) K/uL MPV (7.40-12.00) fL Neut % (Auto) (48.0-80.0) % Lymph % (Auto) (16.0-40.0) % [place] % (Auto) (0.0-15.0) % Eos % (Auto) (0.0-7.0) % Baso % (Auto) (0.0-1.5) % Neut # (Auto) (1.4-5.7) K/uL Lymph # (Auto) (0.6-2.4) K/uL [place] # (Auto) (0.0-0.8) K/uL Eos # (Auto) (0.0-0.7) K/uL Baso # (Auto) (0.0-0.1) K/uL Nucleated RBC % /100WBC Nucleated RBCs # K/uL Lactate (0.20-2.00) mmol/L Sodium 137 (136-145) mmol/L Potassium 4.1 (3.5-5.1) mmol/L Chloride 105 (98-107) mmol/L Carbon Dioxide 25.1 (21.0-32.0) mmol/L BUN 9 (7.0-18.0) mg/dL Creatinine 0.8 (0.6-1.0) mg/dL Est Cr Clr Drug Dosing 89.16 mL/min Estimated GFR (MDRD) > 60.0 ml/min Glucose 121 H (74-106) mg/dL Hemoglobin A1c (4.5-6.2) % Calcium 7.8 L (8.5-10.1) mg/dL Total Bilirubin 0.4 (0.2-1.0) mg/dL AST 8 L (15-37) IU/L ALT 12 L (14-63) IU/L Alkaline Phosphatase 79 (46-116) U/L Total Protein 6.2 L (6.4-8.2) g/dL Albumin 2.1 L (3.4-5.0) g/dL Globulin 4.1 H (2.6-4.0) g/dL Albumin/Globulin Ratio 0.5 L (0.9-1.6) HCG, Qual NEGATIVE (NEG) Urine Color Urine Appearance Urine pH (5.0-8.0) Ur Specific [place] (1.001-1.035) Urine Protein (NEGATIVE) mg/dL Urine Glucose (UA) (NEGATIVE) mg/dL Urine Ketones (NEGATIVE) mg/dL Urine Occult Blood (NEGATIVE) Urine Nitrite (NEGATIVE) Urine Bilirubin (NEGATIVE) Urine Ictotest Urine Urobilinogen (<2.0) EU/dL Ur Leukocyte Esterase (NEGATIVE) Urine RBC (0-2/HPF) Urine WBC (0-5/HPF) Ur Epithelial Cells (NONE-FEW) Amorphous Sediment (NEGATIVE) Urine Bacteria (NEGATIVE) Urine Mucus (NONE-MOD) Urinalysis Comment Result Diagrams: 12/20/18 05:25 12/20/18 05:25 Consult PN Assessment/Plan Procedures: Procedures ASSAY DIPROPYLACETIC ACD TOT (09/10/16) HEPATIC FUNCTION PANEL (09/10/16) (1) Cellulitis of buttock, right SNOMED Code(s): 47070552 Code(s): L03.317 - CELLULITIS OF BUTTOCK Priority: High Current Visit: Yes (2) History of MRSA infection SNOMED Code(s): 981476514, 971094644 Code(s): Z86.14 - PERSONAL HISTORY OF METHICILLIN RESIS STAPH INFECTION Priority: High Current Visit: Yes Problem List Initiated/Reviewed/Updated: Yes Plan: The lesions the patient has a small and superficial. These do not require surgical drainage. Continue with antibiotic therapy. Call if the patient develops any large area of fluctuance.
[2018-12-20] MEDS: metroNIDAZOLE 250 MG Tab PO SCH ×2 (12:52→20:47)
[2018-12-20] MEDS: Enoxaparin 40 MG/0.4 ML Syringe SUBCUT SCH (17:58)
[2018-12-21] MEDS: Piperacillin/Tazobactam 3.375 GM in Sodium Chloride 0.9% 50 ML IV SCH ×4 (02:49→20:51)
[2018-12-21] MEDS: oxyCODONE 5 MG Tab PO PRN ×3 (02:49→11:45)
[2018-12-21] MEDS: Vancomycin 1.5 GM in Sodium Chloride 0.9% 500 ML IV SCH ×3 (03:57→18:34)
[2018-12-21 05:54] LABS: CHLORIDE,CL 107 mmol/L (98-107); SODIUM,NA 139 mmol/L (136-145)
[2018-12-21] MEDS: Sodium Chloride 0.9% 1,000 ML IV SCH ×2 (06:46→16:18)
--- NOTE | 2018-12-21 08:10 | PCM.PN ---
<Teresa Cavazos M - Last Filed: 12/21/18 09:43> - General Info Date of Service: 12/21/18 Admission Dx/Problem (Free Text): R gluteal cellulitis Subjective Update: Reports feeling somewhat improved today. R buttocks was draining overnight. Fevers overnight. Pain controlled with oxycodone. No chest pain or SOB. Functional Status: Reports: Pain Controlled, Tolerating Diet, Ambulating, Urinating - Review of Systems General: Reports: Fever, Malaise HEENT: Reports: No Symptoms. Denies: Headaches, Sore Throat Pulmonary: Reports: No Symptoms. Denies: Shortness of Breath Cardiovascular: Reports: No Symptoms. Denies: Chest Pain Gastrointestinal: Reports: No Symptoms. Denies: Abdominal Pain, Nausea, Vomiting Genitourinary: Denies: Dysuria, Frequency Musculoskeletal: Reports: No Symptoms Skin: Reports: Other (buttocks wound draining.) Neurological: Reports: No Symptoms Psychiatric: Reports: No Symptoms - Patient Data Vitals - Most Recent: Last Vital Signs Temp 99.5 F 12/21/18 07:20 Pulse 101 H 12/21/18 07:20 Resp 20 12/21/18 07:20 BP 105/51 L 12/21/18 07:20 Pulse Ox 98 12/21/18 07:20 Weight - Most Recent: 110.818 kg I&O - Last 24 Hours: Intake & Output 12/20/18 12/21/18 12/21/18 22:59 06:59 14:59 Intake Total 3022 500 Output Total 250 300 Balance 2772 200 Lab Results Last 24 Hours: Laboratory Results - last 24 hr 12/20/18 12/21/18 12/21/18 Range/Units 05:25 05:28 05:28 WBC 10.30 (4.0-11.0) K/uL RBC 3.45 L (4.30-5.90) M/uL Hgb 10.0 L (12.0-16.0) g/dL Hct 31.3 L (36.0-46.0) % MCV 90.7 (80.0-98.0) fL MCH 29.0 (27.0-32.0) pg MCHC 31.9 (31.0-37.0) g/dL RDW Std Deviation 48.1 (28.0-62.0) fl RDW Coeff of Rachelle 15 (11.0-15.0) % Plt Count 240 (150-400) K/uL MPV 8.80 (7.40-12.00) fL Neut % (Auto) 78.5 (48.0-80.0) % Lymph % (Auto) 11.7 L (16.0-40.0) % Bandera % (Auto) 8.6 (0.0-15.0) % Eos % (Auto) 1.1 (0.0-7.0) % Baso % (Auto) 0.1 (0.0-1.5) % Neut # (Auto) 8.1 H (1.4-5.7) K/uL Lymph # (Auto) 1.2 (0.6-2.4) K/uL Bandera # (Auto) 0.9 H (0.0-0.8) K/uL Eos # (Auto) 0.1 (0.0-0.7) K/uL Baso # (Auto) 0.0 (0.0-0.1) K/uL Nucleated RBC % 0.0 /100WBC Nucleated RBCs # 0 K/uL Sodium 139 (136-145) mmol/L Potassium 3.9 (3.5-5.1) mmol/L Chloride 107 (98-107) mmol/L Carbon Dioxide 22.8 (21.0-32.0) mmol/L BUN 5 L (7.0-18.0) mg/dL Creatinine 0.9 (0.6-1.0) mg/dL Est Cr Clr Drug Dosing 79.25 mL/min Estimated GFR (MDRD) > 60.0 ml/min Glucose 113 H (74-106) mg/dL Calcium 7.8 L (8.5-10.1) mg/dL HCG, Qual NEGATIVE (NEG) Luis Armando Results Last 24 Hours: Microbiology 12/19/18 15:28 Aerobic Blood Culture - Preliminary Blood - Venous - Lab Draw NO GROWTH AFTER 1 DAY Anaerobic Blood Culture - Preliminary NO GROWTH AFTER 1 DAY 12/19/18 15:28 Aerobic Blood Culture - Preliminary Blood - Venous NO GROWTH AFTER 1 DAY Anaerobic Blood Culture - Preliminary NO GROWTH AFTER 1 DAY Med Orders - Current: Current Medications Acetaminophen (Tylenol) 650 mg PO Q4H PRN PRN Reason: Pain (Mild 1-3)/fever Last Admin: 12/20/18 18:16 Dose: 650 mg Docusate Sodium (Colace) 100 mg PO BID PRN PRN Reason: Constipation Enoxaparin Sodium (Lovenox) 40 mg SUBCUT Q24H PENDING SALE TO [facility] Last Admin: 12/20/18 17:58 Dose: 40 mg Piperacillin Sod/Tazobactam (Sod 3.375 gm/ Sodium Chloride) 50 mls @ 100 mls/ hr IV Q6H PENDING SALE TO [facility] Last Admin: 12/21/18 02:49 Dose: 100 mls/hr Sodium Chloride (Normal Saline) 1,000 mls @ 150 mls/hr IV ASDIRECTED PENDING SALE TO [facility] Last Admin: 12/21/18 06:46 Dose: 150 mls/hr Vancomycin HCl 1.5 gm/ Sodium (Chloride) 500 mls @ 250 mls/hr IV Q8H PENDING SALE TO [facility] Last Admin: 12/21/18 03:57 Dose: 250 mls/hr Metronidazole (Metronidazole) 500 mg PO Q12HR PENDING SALE TO [facility] Last Admin: 12/20/18 20:47 Dose: 500 mg Morphine Sulfate (Morphine) 2 mg IVPUSH Q3H PRN PRN Reason: severe Pain Last Admin: 12/20/18 15:42 Dose: 2 mg Nicotine (Habitrol) 14 mg TRDERM DAILY PENDING SALE TO [facility] Last Admin: 12/20/18 08:15 Dose: Not Given Ondansetron HCl (Zofran Odt) 4 mg PO Q6H PRN PRN Reason: nausea, able to take PO Oxycodone HCl (Oxycodone) 5 mg PO Q4H PRN PRN Reason: Pain (moderate 4-6) Last Admin: 12/21/18 07:18 Dose: 5 mg Temazepam (Restoril) 15 mg PO BEDTIME PRN PRN Reason: Sleep Vancomycin HCl (Pharmacy To Dose - Vancomycin) 1 dose .XX ASDIRECTED PENDING SALE TO [facility] Discontinued Medications Enoxaparin Sodium (Lovenox) 40 mg SUBCUT Q24H PENDING SALE TO [facility] Last Admin: 12/19/18 18:42 Dose: Not Given Sodium Chloride (Normal Saline) 1,000 mls @ 999 mls/hr IV STAT ONE Stop: 12/19/18 16:01 Last Admin: 12/19/18 15:21 Dose: 999 mls/hr Vancomycin HCl 1 gm/ Sodium (Chloride) 250 mls @ 250 mls/hr IV ONETIME ONE Stop: 12/19/18 16:18 Last Admin: 12/19/18 15:44 Dose: 250 mls/hr Clindamycin Phosphate 300 mg/ (Premix) 50 mls @ 100 mls/hr IV Q8H PENDING SALE TO [facility] Last Admin: 12/20/18 08:09 Dose: 100 mls/hr Sodium Chloride (Normal Saline) 1,000 mls @ 100 mls/hr IV ASDIRECTED PENDING SALE TO [facility] Last Admin: 12/20/18 03:51 Dose: 100 mls/hr Sodium Chloride (Normal Saline) 1,000 mls @ 999 mls/hr IV .Bolus ONE Stop: 12/20/18 09:45 Last Admin: 12/20/18 09:53 Dose: 999 mls/hr Iopamidol (Isovue Multipack-370 (76%)) 90 ml IVPUSH ONETIME STA Stop: 12/20/18 10:45 Last Admin: 12/20/18 10:46 Dose: 90 ml Ketorolac Tromethamine (Toradol) 30 mg IVPUSH ONETIME ONE Stop: 12/19/18 15:02 Last Admin: 12/19/18 15:21 Dose: 30 mg Morphine Sulfate (Morphine) 2 mg IVPUSH ONETIME ONE Stop: 12/19/18 16:10 Last Admin: 12/19/18 16:15 Dose: 2 mg - Exam General: Alert, Oriented, Cooperative Lungs: Clear to Auscultation, Normal Respiratory Effort Cardiovascular: Regular Rate, Regular Rhythm GI/Abdominal Exam: Normal Bowel Sounds, Soft, Non-Tender Extremities: Normal Inspection, Normal Range of Motion Wound/Incisions: Erythema Improving (much improved, induration improved as well. Continues to have pain with palpation. small pustules have opened overnight and were draining. No active draining this morning, no overt fluctuance noted. again extreme tenderness with palpation. ) Neurological: No New Focal Deficit Psy/Mental Status: Alert, Normal Affect, Normal Mood - Problem List & Annotations (1) Cellulitis of buttock, right SNOMED Code(s): 88939504 Code(s): L03.317 - CELLULITIS OF BUTTOCK Status: Acute Priority: High Current Visit: Yes (2) Leukocytosis SNOMED Code(s): 708536318, 687712370 Code(s): D72.829 - ELEVATED WHITE BLOOD CELL COUNT, UNSPECIFIED Status: Acute Priority: High Current Visit: Yes Qualifiers: Leukocytosis type: unspecified Qualified Code(s): D72.829 - Elevated white blood cell count, unspecified (3) Bacterial vaginosis SNOMED Code(s): 647551692 Code(s): N76.0 - ACUTE VAGINITIS; B96.89 - OTH BACTERIAL AGENTS THE CAUSE OF DISEASES CLASSD [id number] Status: Acute Current Visit: Yes (4) History of MRSA infection SNOMED Code(s): 897734600, 433827222 Code(s): Z86.14 - PERSONAL HISTORY OF METHICILLIN RESIS STAPH INFECTION Status: Chronic Priority: High Current Visit: Yes (5) Morbid obesity with BMI of 40.0-44.9, adult SNOMED Code(s): 173238407, 97758673748252 Code(s): E66.01 - MORBID (SEVERE) OBESITY DUE TO EXCESS CALORIES; Z68.41 - BODY MASS INDEX (BMI) 40.0-44.9, ADULT Status: Chronic Priority: High Current Visit: Yes (6) Tobacco abuse SNOMED Code(s): 842686478 Code(s): Z72.0 - TOBACCO USE Status: Chronic Priority: Medium Current Visit: Yes - Problem List Review Problem List Initiated/Reviewed/Updated: Yes - My Orders Last 24 Hours: My Active Orders 12/20/18 08:46 Sodium Chloride 0.9% [Normal Saline] 1,000 ml IV ASDIRECTED 12/20/18 08:54 Consult to Physician [CONS] Routine 12/20/18 08:55 Notify Provider Consults [RC] ASDIRECTED Morphine 2 mg IVPUSH Q3H PRN 12/20/18 09:00 Piperacillin/Tazobactam [Piperacil-Tazobact] 3.375 gm Sodium Chloride 0.9% [ Normal Saline] 50 ml IV Q6H 12/20/18 10:45 Pharmacy to Dose - Vancomycin 1 dose .XX ASDIRECTED 12/20/18 11:46 metroNIDAZOLE 500 mg PO Q12HR 12/20/18 16:00 CULTURE WOUND [RM] Routine 12/22/18 05:11 BMP [BASIC METABOLIC PANEL,BMP] [CHEM] AM CBC WITH AUTO DIFF [HEME] AM 12/23/18 05:11 BMP [BASIC METABOLIC PANEL,BMP] [CHEM] AM CBC WITH AUTO DIFF [HEME] AM - Plan Plan:: This 33 year old female admitted with R gluteal cellulitis 1. Cellulitis: Improved today. Pain somewhat improved as well. Fevers overnight. CT which revealed R gluteal cellulitis with underlying edema, a defined abscess is not identified. Continue Vancomycin and will start Zosyn. Continue IVFs, NS 150 ml/hr. Leukocytosis resolved. BC pending. Continue Oxycodone and Morphine for pain control, no morphine use since yesterday. Consulted Dr Riggs, no area of fluctuance yet, will continue to monitor, may develop abscess. VS stable. 2. Bacterial vaginosis: Improved, Continue Flagyl 500 mg PO BID 3. Elevated BS: A1c 5.7. Monitor. VTE Prophylaxis: Lovenox Dispo: 1-2 days <Felix Carrion - Last Filed: 12/21/18 10:48> - General Info Admission Dx/Problem (Free Text): I have seen and examined to patient independently of Teresa Cavazos CNP. I have discussed the case for care of this patient with her. I have reviewed and approve of the plan of care as outlined by LISA. Please see orders. - Patient Data Vitals - Most Recent: Last Vital Signs Temp 37.3 C 12/21/18 09:20 Pulse 101 H 12/21/18 07:20 Resp 20 12/21/18 07:20 BP 105/51 L 12/21/18 07:20 Pulse Ox 98 12/21/18 07:20 I&O - Last 24 Hours: Intake & Output 12/20/18 12/21/18 12/21/18 22:59 06:59 14:59 Intake Total 3022 500 50 Output Total 250 300 Balance 2772 200 50 Lab Results Last 24 Hours: Laboratory Results - last 24 hr 12/21/18 12/21/18 Range/Units 05:28 05:28 WBC 10.30 (4.0-11.0) K/uL RBC 3.45 L (4.30-5.90) M/uL Hgb 10.0 L (12.0-16.0) g/dL Hct 31.3 L (36.0-46.0) % MCV 90.7 (80.0-98.0) fL MCH 29.0 (27.0-32.0) pg MCHC 31.9 (31.0-37.0) g/dL RDW Std Deviation 48.1 (28.0-62.0) fl RDW Coeff of Rachelle 15 (11.0-15.0) % Plt Count 240 (150-400) K/uL MPV 8.80 (7.40-12.00) fL Neut % (Auto) 78.5 (48.0-80.0) % Lymph % (Auto) 11.7 L (16.0-40.0) % Bandera % (Auto) 8.6 (0.0-15.0) % Eos % (Auto) 1.1 (0.0-7.0) % Baso % (Auto) 0.1 (0.0-1.5) % Neut # (Auto) 8.1 H (1.4-5.7) K/uL Lymph # (Auto) 1.2 (0.6-2.4) K/uL Band[place] # (Auto) 0.9 H (0.0-0.8) K/uL Eos # (Auto) 0.1 (0.0-0.7) K/uL Baso # (Auto) 0.0 (0.0-0.1) K/uL Nucleated RBC % 0.0 /100WBC Nucleated RBCs # 0 K/uL Sodium 139 (136-145) mmol/L Potassium 3.9 (3.5-5.1) mmol/L Chloride 107 (98-107) mmol/L Carbon Dioxide 22.8 (21.0-32.0) mmol/L BUN 5 L (7.0-18.0) mg/dL Creatinine 0.9 (0.6-1.0) mg/dL Est Cr Clr Drug Dosing 79.25 mL/min Estimated GFR (MDRD) > 60.0 ml/min Glucose 113 H (74-106) mg/dL Calcium 7.8 L (8.5-10.1) mg/dL Luis Armando Results Last 24 Hours: Microbiology 12/19/18 23:28 Urine Culture - Final Urine, Clean Catch MIXED SHILPA 10,000-100,000 CFU/ML 12/19/18 15:28 Aerobic Blood Culture - Preliminary Blood - Venous - Lab Draw NO GROWTH AFTER 1 DAY Anaerobic Blood Culture - Preliminary NO GROWTH AFTER 1 DAY 12/19/18 15:28 Aerobic Blood Culture - Preliminary Blood - Venous NO GROWTH AFTER 1 DAY Anaerobic Blood Culture - Preliminary NO GROWTH AFTER 1 DAY Med Orders - Current: Current Medications Acetaminophen (Tylenol) 650 mg PO Q4H PRN PRN Reason: Pain (Mild 1-3)/fever Last Admin: 12/20/18 18:16 Dose: 650 mg Docusate Sodium (Colace) 100 mg PO BID PENDING SALE TO [facility] Enoxaparin Sodium (Lovenox) 40 mg SUBCUT Q24H PENDING SALE TO [facility] Last Admin: 12/20/18 17:58 Dose: 40 mg Piperacillin Sod/Tazobactam (Sod 3.375 gm/ Sodium Chloride) 50 mls @ 100 mls/ hr IV Q6H PENDING SALE TO [facility] Last Admin: 12/21/18 09:18 Dose: 100 mls/hr Sodium Chloride (Normal Saline) 1,000 mls @ 150 mls/hr IV ASDIRECTED PENDING SALE TO [facility] Last Admin: 12/21/18 06:46 Dose: 150 mls/hr Vancomycin HCl 1.5 gm/ Sodium (Chloride) 500 mls @ 250 mls/hr IV Q8H PENDING SALE TO [facility] Last Admin: 12/21/18 03:57 Dose: 250 mls/hr Metronidazole (Metronidazole) 500 mg PO Q12HR PENDING SALE TO [facility] Last Admin: 12/21/18 09:19 Dose: 500 mg Morphine Sulfate (Morphine) 2 mg IVPUSH Q3H PRN PRN Reason: severe Pain Last Admin: 12/20/18 15:42 Dose: 2 mg Nicotine (Habitrol) 14 mg TRDERM DAILY PENDING SALE TO [facility] Last Admin: 12/21/18 09:19 Dose: Not Given Ondansetron HCl (Zofran Odt) 4 mg PO Q6H PRN PRN Reason: nausea, able to take PO Oxycodone HCl (Oxycodone) 5 mg PO Q4H PRN PRN Reason: Pain (moderate 4-6) Last Admin: 12/21/18 07:18 Dose: 5 mg Temazepam (Restoril) 15 mg PO BEDTIME PRN PRN Reason: Sleep Vancomycin HCl (Pharmacy To Dose - Vancomycin) 1 dose .XX ASDIRECTED PENDING SALE TO [facility] Discontinued Medications Docusate Sodium (Colace) 100 mg PO BID PRN PRN Reason: Constipation Enoxaparin Sodium (Lovenox) 40 mg SUBCUT Q24H PENDING SALE TO [facility] Last Admin: 12/19/18 18:42 Dose: Not Given Sodium Chloride (Normal Saline) 1,000 mls @ 999 mls/hr IV STAT ONE Stop: 12/19/18 16:01 Last Admin: 12/19/18 15:21 Dose: 999 mls/hr Vancomycin HCl 1 gm/ Sodium (Chloride) 250 mls @ 250 mls/hr IV ONETIME ONE Stop: 12/19/18 16:18 Last Admin: 12/19/18 15:44 Dose: 250 mls/hr Clindamycin Phosphate 300 mg/ (Premix) 50 mls @ 100 mls/hr IV Q8H PENDING SALE TO [facility] Last Admin: 12/20/18 08:09 Dose: 100 mls/hr Sodium Chloride (Normal Saline) 1,000 mls @ 100 mls/hr IV ASDIRECTED PENDING SALE TO [facility] Last Admin: 12/20/18 03:51 Dose: 100 mls/hr Sodium Chloride (Normal Saline) 1,000 mls @ 999 mls/hr IV .Bolus ONE Stop: 12/20/18 09:45 Last Admin: 12/20/18 09:53 Dose: 999 mls/hr Iopamidol (Isovue Multipack-370 (76%)) 90 ml IVPUSH ONETIME STA Stop: 12/20/18 10:45 Last Admin: 12/20/18 10:46 Dose: 90 ml Ketorolac Tromethamine (Toradol) 30 mg IVPUSH ONETIME ONE Stop: 12/19/18 15:02 Last Admin: 12/19/18 15:21 Dose: 30 mg Morphine Sulfate (Morphine) 2 mg IVPUSH ONETIME ONE Stop: 12/19/18 16:10 Last Admin: 12/19/18 16:15 Dose: 2 mg - Problem List & Annotations (1) Cellulitis of buttock, right SNOMED Code(s): 11449152 Code(s): L03.317 - CELLULITIS OF BUTTOCK Status: Acute Priority: High Current Visit: Yes (2) History of MRSA infection SNOMED Code(s): 578678084, 437587071 Code(s): Z86.14 - PERSONAL HISTORY OF METHICILLIN RESIS STAPH INFECTION Status: Chronic Priority: High Current Visit: Yes (3) Hyperglycemia SNOMED Code(s): 29888356 Code(s): R73.9 - HYPERGLYCEMIA, UNSPECIFIED Status: Acute Priority: High Current Visit: Yes (4) Leukocytosis SNOMED Code(s): 121019234, 122621870 Code(s): D72.829 - ELEVATED WHITE BLOOD CELL COUNT, UNSPECIFIED Status: Acute Priority: High Current Visit: Yes Qualifiers: Leukocytosis type: unspecified Qualified Code(s): D72.829 - Elevated white blood cell count, unspecified (5) Morbid obesity with BMI of 40.0-44.9, adult SNOMED Code(s): 641124238, 58343068296696 Code(s): E66.01 - MORBID (SEVERE) OBESITY DUE TO EXCESS CALORIES; Z68.41 - BODY MASS INDEX (BMI) 40.0-44.9, ADULT Status: Chronic Priority: High Current Visit: Yes (6) Tobacco abuse SNOMED Code(s): 305340374 Code(s): Z72.0 - TOBACCO USE Status: Chronic Priority: Medium Current Visit: Yes - My Orders Last 24 Hours: My Active Orders 12/20/18 11:00 Vancomycin 1.5 gm Sodium Chloride 0.9% [Normal Saline] 500 ml IV Q8H 12/21/18 10:40 VANCOMYCIN TROUGH [CHEM] Routine
[2018-12-21] MEDS: Nicotine 14 MG/24 Hr Patch TRDERM SCH (09:19)
[2018-12-21] MEDS: metroNIDAZOLE 250 MG Tab PO SCH ×2 (09:19→20:57)
[2018-12-21] MEDS: Enoxaparin 40 MG/0.4 ML Syringe SUBCUT SCH (18:33)
--- NOTE | 2018-12-21 18:36 | PCM.SN ---
- Free Text/Narrative Note: Patient is a 33-year-old female who presented with a right buttock cellulitis. She has been on antibiotics now the largest of her skin lesions is fluctuant and draining. When I came to assess the patient she had severe anxiety with me even inspecting the wound. Even though this is a small area of fluctuance approximately 1-2 centimeters in diameter I do not believe she'll tolerate a bedside drainage. I discussed taking her to the operating room and performing an incision and drainage under anesthesia instead. She would much prefer that. I explained the procedure, expected perioperative course including the need for dressing changes as well as the risks including bleeding or infection. She verbalized understanding and wishes to proceed. Continue IV antibiotics for now. Make patient nothing by mouth at midnight. We'll take to the operating room in the morning.
[2018-12-21] MEDS: Docusate Sodium 100 MG Cap PO SCH (20:51)
[2018-12-21] MEDS: Acetaminophen 325 MG Tab PO PRN (20:57)
[2018-12-22] MEDS: Sodium Chloride 0.9% 1,000 ML IV SCH (01:51)
[2018-12-22] MEDS: Piperacillin/Tazobactam 3.375 GM in Sodium Chloride 0.9% 50 ML IV SCH ×4 (02:00→21:28)
[2018-12-22] MEDS: Vancomycin 1.5 GM in Sodium Chloride 0.9% 500 ML IV SCH ×3 (02:39→18:38)
[2018-12-22 06:42] LABS: CHLORIDE,CL 110 mmol/L (98-107); SODIUM,NA 143 mmol/L (136-145)
--- NOTE | 2018-12-22 08:10 | PCM.PN ---
<Teresa Cavazos M - Last Filed: 12/22/18 08:49> - General Info Date of Service: 12/22/18 Admission Dx/Problem (Free Text): R gluteal cellulitis with abscess Subjective Update: Doing better today, pain is improved. Abscess drained overnight, continued to have purulent drainage. No chest pain or SOB. Functional Status: Reports: Pain Controlled, Tolerating Diet, Ambulating, Urinating - Review of Systems General: Denies: Fever, Weakness, Fatigue Pulmonary: Reports: No Symptoms. Denies: Shortness of Breath Cardiovascular: Reports: No Symptoms. Denies: Chest Pain Gastrointestinal: Reports: No Symptoms. Denies: Abdominal Pain, Nausea, Vomiting Genitourinary: Reports: No Symptoms. Denies: Dysuria, Frequency, Burning Skin: Reports: Other (pain to r buttocks with drainage, pain improved) Neurological: Reports: No Symptoms Psychiatric: Reports: No Symptoms - Patient Data Vitals - Most Recent: Last Vital Signs Temp 99 F 12/22/18 07:22 Pulse 78 12/22/18 07:22 Resp 20 12/22/18 07:22 BP 133/64 12/22/18 07:22 Pulse Ox 98 12/22/18 07:22 Weight - Most Recent: 110.818 kg I&O - Last 24 Hours: Intake & Output 12/21/18 12/22/18 12/22/18 22:59 06:59 14:59 Intake Total 3175 1767 Output Total 250 1000 Balance 2925 767 Lab Results Last 24 Hours: Laboratory Results - last 24 hr 12/21/18 12/22/18 12/22/18 Range/Units 10:40 05:58 05:58 WBC 7.80 (4.0-11.0) K/uL RBC 3.36 L (4.30-5.90) M/uL Hgb 9.9 L (12.0-16.0) g/dL Hct 30.6 L (36.0-46.0) % MCV 91.1 (80.0-98.0) fL MCH 29.5 (27.0-32.0) pg MCHC 32.4 (31.0-37.0) g/dL RDW Std Deviation 48.7 (28.0-62.0) fl RDW Coeff of Rachelle 15 (11.0-15.0) % Plt Count 245 (150-400) K/uL MPV 8.80 (7.40-12.00) fL Neut % (Auto) 73.7 (48.0-80.0) % Lymph % (Auto) 14.5 L (16.0-40.0) % [place] % (Auto) 8.5 (0.0-15.0) % Eos % (Auto) 3.2 (0.0-7.0) % Baso % (Auto) 0.1 (0.0-1.5) % Neut # (Auto) 5.8 H (1.4-5.7) K/uL Lymph # (Auto) 1.1 (0.6-2.4) K/uL [place] # (Auto) 0.7 (0.0-0.8) K/uL Eos # (Auto) 0.3 (0.0-0.7) K/uL Baso # (Auto) 0.0 (0.0-0.1) K/uL Nucleated RBC % 0.0 /100WBC Nucleated RBCs # 0 K/uL Sodium 143 (136-145) mmol/L Potassium 3.9 (3.5-5.1) mmol/L Chloride 110 H (98-107) mmol/L Carbon Dioxide 23.2 (21.0-32.0) mmol/L BUN 6 L (7.0-18.0) mg/dL Creatinine 0.8 (0.6-1.0) mg/dL Est Cr Clr Drug Dosing 89.16 mL/min Estimated GFR (MDRD) > 60.0 ml/min Glucose 109 H (74-106) mg/dL Calcium 7.9 L (8.5-10.1) mg/dL Vancomycin Trough 12.9 H (5.0-10.0) ug/mL Luis Armando Results Last 24 Hours: Microbiology 12/19/18 15:28 Aerobic Blood Culture - Preliminary Blood - Venous - Lab Draw NO GROWTH AFTER 2 DAYS Anaerobic Blood Culture - Preliminary NO GROWTH AFTER 2 DAYS 12/19/18 15:28 Aerobic Blood Culture - Preliminary Blood - Venous NO GROWTH AFTER 2 DAYS Anaerobic Blood Culture - Preliminary NO GROWTH AFTER 2 DAYS 12/19/18 23:28 Urine Culture - Final Urine, Clean Catch MIXED SHILPA 10,000-100,000 CFU/ML Med Orders - Current: Current Medications Acetaminophen (Tylenol) 650 mg PO Q4H PRN PRN Reason: Pain (Mild 1-3)/fever Last Admin: 12/21/18 20:57 Dose: 650 mg Docusate Sodium (Colace) 100 mg PO BID [facility] Last Admin: 12/21/18 20:51 Dose: 100 mg Enoxaparin Sodium (Lovenox) 40 mg SUBCUT Q24H [facility] Last Admin: 12/21/18 18:33 Dose: 40 mg Piperacillin Sod/Tazobactam (Sod 3.375 gm/ Sodium Chloride) 50 mls @ 100 mls/ hr IV Q6H [facility] Last Admin: 12/22/18 02:00 Dose: 100 mls/hr Sodium Chloride (Normal Saline) 1,000 mls @ 150 mls/hr IV ASDIRECTED [facility] Last Admin: 12/22/18 01:51 Dose: 150 mls/hr Vancomycin HCl 1.5 gm/ Sodium (Chloride) 500 mls @ 250 mls/hr IV Q8H [facility] Last Admin: 12/22/18 02:39 Dose: 250 mls/hr Metronidazole (Metronidazole) 500 mg PO Q12HR [facility] Last Admin: 12/21/18 20:57 Dose: 500 mg Morphine Sulfate (Morphine) 2 mg IVPUSH Q3H PRN PRN Reason: severe Pain Last Admin: 12/20/18 15:42 Dose: 2 mg Nicotine (Habitrol) 14 mg TRDERM DAILY [facility] Last Admin: 12/21/18 09:19 Dose: Not Given Ondansetron HCl (Zofran Odt) 4 mg PO Q6H PRN PRN Reason: nausea, able to take PO Oxycodone HCl (Oxycodone) 5 mg PO Q4H PRN PRN Reason: Pain (moderate 4-6) Last Admin: 12/21/18 11:45 Dose: 5 mg Temazepam (Restoril) 15 mg PO BEDTIME PRN PRN Reason: Sleep Vancomycin HCl (Pharmacy To Dose - Vancomycin) 1 dose .XX ASDIRECTED [facility] Discontinued Medications Docusate Sodium (Colace) 100 mg PO BID PRN PRN Reason: Constipation Enoxaparin Sodium (Lovenox) 40 mg SUBCUT Q24H [facility] Last Admin: 12/19/18 18:42 Dose: Not Given Sodium Chloride (Normal Saline) 1,000 mls @ 999 mls/hr IV STAT ONE Stop: 12/19/18 16:01 Last Admin: 12/19/18 15:21 Dose: 999 mls/hr Vancomycin HCl 1 gm/ Sodium (Chloride) 250 mls @ 250 mls/hr IV ONETIME ONE Stop: 12/19/18 16:18 Last Admin: 12/19/18 15:44 Dose: 250 mls/hr Clindamycin Phosphate 300 mg/ (Premix) 50 mls @ 100 mls/hr IV Q8H [facility] Last Admin: 12/20/18 08:09 Dose: 100 mls/hr Sodium Chloride (Normal Saline) 1,000 mls @ 100 mls/hr IV ASDIRECTED [facility] Last Admin: 12/20/18 03:51 Dose: 100 mls/hr Sodium Chloride (Normal Saline) 1,000 mls @ 999 mls/hr IV .Bolus ONE Stop: 12/20/18 09:45 Last Admin: 12/20/18 09:53 Dose: 999 mls/hr Iopamidol (Isovue Multipack-370 (76%)) 90 ml IVPUSH ONETIME STA Stop: 12/20/18 10:45 Last Admin: 12/20/18 10:46 Dose: 90 ml Ketorolac Tromethamine (Toradol) 30 mg IVPUSH ONETIME ONE Stop: 12/19/18 15:02 Last Admin: 12/19/18 15:21 Dose: 30 mg Morphine Sulfate (Morphine) 2 mg IVPUSH ONETIME ONE Stop: 12/19/18 16:10 Last Admin: 12/19/18 16:15 Dose: 2 mg - Exam General: Alert, Oriented, Cooperative Neck: Supple Lungs: Clear to Auscultation, Normal Respiratory Effort Cardiovascular: Regular Rate, Regular Rhythm GI/Abdominal Exam: Normal Bowel Sounds, Soft, Non-Tender Extremities: Normal Inspection, Normal Range of Motion, Non-Tender, No Pedal Edema Wound/Incisions: Erythema Improving (significant improvement in erythema, puruelent serosang drainage noted this morning. No further induration, more fluctuance noted.) Neurological: No New Focal Deficit Psy/Mental Status: Alert, Normal Affect, Normal Mood - Problem List & Annotations (1) Cellulitis of buttock, right SNOMED Code(s): 68385750 Code(s): L03.317 - CELLULITIS OF BUTTOCK Status: Acute Priority: High Current Visit: Yes (2) Leukocytosis SNOMED Code(s): 556853195, 426192701 Code(s): D72.829 - ELEVATED WHITE BLOOD CELL COUNT, UNSPECIFIED Status: Acute Priority: High Current Visit: Yes Qualifiers: Leukocytosis type: unspecified Qualified Code(s): D72.829 - Elevated white blood cell count, unspecified (3) Bacterial vaginosis SNOMED Code(s): 619128642 Code(s): N76.0 - ACUTE VAGINITIS; B96.89 - OTH BACTERIAL AGENTS THE CAUSE OF DISEASES CLASSD [id number] Status: Acute Current Visit: Yes (4) History of MRSA infection SNOMED Code(s): 510197267, 104701398 Code(s): Z86.14 - PERSONAL HISTORY OF METHICILLIN RESIS STAPH INFECTION Status: Chronic Priority: High Current Visit: Yes (5) Morbid obesity with BMI of 40.0-44.9, adult SNOMED Code(s): 636166060, 25510045516958 Code(s): E66.01 - MORBID (SEVERE) OBESITY DUE TO EXCESS CALORIES; Z68.41 - BODY MASS INDEX (BMI) 40.0-44.9, ADULT Status: Chronic Priority: High Current Visit: Yes (6) Tobacco abuse SNOMED Code(s): 068500077 Code(s): Z72.0 - TOBACCO USE Status: Chronic Priority: Medium Current Visit: Yes - Problem List Review Problem List Initiated/Reviewed/Updated: Yes - My Orders Last 24 Hours: My Active Orders 12/21/18 21:00 Docusate Sodium [Colace] 100 mg PO BID 12/21/18 Dinner NPO After Midnight [Nothing per Oral After Midnight Diet] [DIET] 12/23/18 05:11 BMP [BASIC METABOLIC PANEL,BMP] [CHEM] AM CBC WITH AUTO DIFF [HEME] AM - Plan Plan:: This 33 year old female admitted with R gluteal cellulitis 1. Cellulitis: Improved, drainage noted last evening with fluctuance, Dr Riggs re consulted for I&D. Patient declined bedside I&D. She will go to OR today with Dr Riggs. Continue Vancomycin and Zosyn. Leukocytosis resolved. BC pending. Continue Oxycodone and Morphine for pain control. VS stable. Afebrile overnight, but fever noted this morning, 101. 2. Bacterial vaginosis: Improved, Continue Flagyl 500 mg PO BID 3. Elevated BS: A1c 5.7. Monitor. VTE Prophylaxis: Lovenox Dispo:Will make inpatient today. <SheylaFelix chao M - Last Filed: 12/22/18 09:36> - General Info Admission Dx/Problem (Free Text): I have seen and examined to patient independently of Teresa Cavazos CNP. I have discussed the case for care of this patient with her. I have reviewed and approve of the plan of care as outlined by LISA. Please see orders. - Patient Data Vitals - Most Recent: Last Vital Signs Temp 38.3 C H 12/22/18 08:13 Pulse 78 12/22/18 07:22 Resp 20 12/22/18 08:13 BP 133/64 12/22/18 07:22 Pulse Ox 98 12/22/18 08:13 I&O - Last 24 Hours: Intake & Output 12/21/18 12/22/18 12/22/18 22:59 06:59 14:59 Intake Total 3175 1767 50 Output Total 250 1000 Balance 2925 767 50 Lab Results Last 24 Hours: Laboratory Results - last 24 hr 12/21/18 12/22/18 12/22/18 Range/Units 10:40 05:58 05:58 WBC 7.80 (4.0-11.0) K/uL RBC 3.36 L (4.30-5.90) M/uL Hgb 9.9 L (12.0-16.0) g/dL Hct 30.6 L (36.0-46.0) % MCV 91.1 (80.0-98.0) fL MCH 29.5 (27.0-32.0) pg MCHC 32.4 (31.0-37.0) g/dL RDW Std Deviation 48.7 (28.0-62.0) fl RDW Coeff of Rachelle 15 (11.0-15.0) % Plt Count 245 (150-400) K/uL MPV 8.80 (7.40-12.00) fL Neut % (Auto) 73.7 (48.0-80.0) % Lymph % (Auto) 14.5 L (16.0-40.0) % [place] % (Auto) 8.5 (0.0-15.0) % Eos % (Auto) 3.2 (0.0-7.0) % Baso % (Auto) 0.1 (0.0-1.5) % Neut # (Auto) 5.8 H (1.4-5.7) K/uL Lymph # (Auto) 1.1 (0.6-2.4) K/uL [place] # (Auto) 0.7 (0.0-0.8) K/uL Eos # (Auto) 0.3 (0.0-0.7) K/uL Baso # (Auto) 0.0 (0.0-0.1) K/uL Nucleated RBC % 0.0 /100WBC Nucleated RBCs # 0 K/uL Sodium 143 (136-145) mmol/L Potassium 3.9 (3.5-5.1) mmol/L Chloride 110 H (98-107) mmol/L Carbon Dioxide 23.2 (21.0-32.0) mmol/L BUN 6 L (7.0-18.0) mg/dL Creatinine 0.8 (0.6-1.0) mg/dL Est Cr Clr Drug Dosing 89.16 mL/min Estimated GFR (MDRD) > 60.0 ml/min Glucose 109 H (74-106) mg/dL Calcium 7.9 L (8.5-10.1) mg/dL Vancomycin Trough 12.9 H (5.0-10.0) ug/mL Luis Armando Results Last 24 Hours: Microbiology 12/19/18 15:28 Aerobic Blood Culture - Preliminary Blood - Venous - Lab Draw NO GROWTH AFTER 2 DAYS Anaerobic Blood Culture - Preliminary NO GROWTH AFTER 2 DAYS 12/19/18 15:28 Aerobic Blood Culture - Preliminary Blood - Venous NO GROWTH AFTER 2 DAYS Anaerobic Blood Culture - Preliminary NO GROWTH AFTER 2 DAYS 12/19/18 23:28 Urine Culture - Final Urine, Clean Catch MIXED SHILPA 10,000-100,000 CFU/ML Med Orders - Current: Current Medications Acetaminophen (Tylenol) 650 mg PO Q4H PRN PRN Reason: Pain (Mild 1-3)/fever Last Admin: 12/21/18 20:57 Dose: 650 mg Docusate Sodium (Colace) 100 mg PO BID [facility] Last Admin: 12/22/18 08:37 Dose: Not Given Enoxaparin Sodium (Lovenox) 40 mg SUBCUT Q24H [facility] Last Admin: 12/21/18 18:33 Dose: 40 mg Piperacillin Sod/Tazobactam (Sod 3.375 gm/ Sodium Chloride) 50 mls @ 100 mls/ hr IV Q6H [facility] Last Admin: 12/22/18 08:29 Dose: 100 mls/hr Sodium Chloride (Normal Saline) 1,000 mls @ 150 mls/hr IV ASDIRECTED [facility] Last Admin: 12/22/18 01:51 Dose: 150 mls/hr Vancomycin HCl 1.5 gm/ Sodium (Chloride) 500 mls @ 250 mls/hr IV Q8H [facility] Last Admin: 12/22/18 02:39 Dose: 250 mls/hr Metronidazole (Metronidazole) 500 mg PO Q12HR [facility] Last Admin: 12/22/18 08:24 Dose: Not Given Morphine Sulfate (Morphine) 2 mg IVPUSH Q3H PRN PRN Reason: severe Pain Last Admin: 12/20/18 15:42 Dose: 2 mg Nicotine (Habitrol) 14 mg TRDERM DAILY [facility] Last Admin: 12/22/18 08:36 Dose: Not Given Ondansetron HCl (Zofran Odt) 4 mg PO Q6H PRN PRN Reason: nausea, able to take PO Oxycodone HCl (Oxycodone) 5 mg PO Q4H PRN PRN Reason: Pain (moderate 4-6) Last Admin: 12/21/18 11:45 Dose: 5 mg Temazepam (Restoril) 15 mg PO BEDTIME PRN PRN Reason: Sleep Vancomycin HCl (Pharmacy To Dose - Vancomycin) 1 dose .XX ASDIRECTED [facility] Discontinued Medications Docusate Sodium (Colace) 100 mg PO BID PRN PRN Reason: Constipation Enoxaparin Sodium (Lovenox) 40 mg SUBCUT Q24H [facility] Last Admin: 12/19/18 18:42 Dose: Not Given Sodium Chloride (Normal Saline) 1,000 mls @ 999 mls/hr IV STAT ONE Stop: 12/19/18 16:01 Last Admin: 12/19/18 15:21 Dose: 999 mls/hr Vancomycin HCl 1 gm/ Sodium (Chloride) 250 mls @ 250 mls/hr IV ONETIME ONE Stop: 12/19/18 16:18 Last Admin: 12/19/18 15:44 Dose: 250 mls/hr Clindamycin Phosphate 300 mg/ (Premix) 50 mls @ 100 mls/hr IV Q8H [facility] Last Admin: 12/20/18 08:09 Dose: 100 mls/hr Sodium Chloride (Normal Saline) 1,000 mls @ 100 mls/hr IV ASDIRECTED [facility] Last Admin: 12/20/18 03:51 Dose: 100 mls/hr Sodium Chloride (Normal Saline) 1,000 mls @ 999 mls/hr IV .Bolus ONE Stop: 12/20/18 09:45 Last Admin: 12/20/18 09:53 Dose: 999 mls/hr Iopamidol (Isovue Multipack-370 (76%)) 90 ml IVPUSH ONETIME STA Stop: 12/20/18 10:45 Last Admin: 12/20/18 10:46 Dose: 90 ml Ketorolac Tromethamine (Toradol) 30 mg IVPUSH ONETIME ONE Stop: 12/19/18 15:02 Last Admin: 12/19/18 15:21 Dose: 30 mg Morphine Sulfate (Morphine) 2 mg IVPUSH ONETIME ONE Stop: 12/19/18 16:10 Last Admin: 12/19/18 16:15 Dose: 2 mg - Problem List & Annotations (1) Cellulitis of buttock, right SNOMED Code(s): 83763555 Code(s): L03.317 - CELLULITIS OF BUTTOCK Status: Acute Priority: High Current Visit: Yes (2) History of MRSA infection SNOMED Code(s): 419930905, 453010544 Code(s): Z86.14 - PERSONAL HISTORY OF METHICILLIN RESIS STAPH INFECTION Status: Chronic Priority: High Current Visit: Yes (3) Hyperglycemia SNOMED Code(s): 70329944 Code(s): R73.9 - HYPERGLYCEMIA, UNSPECIFIED Status: Acute Priority: High Current Visit: Yes (4) Leukocytosis SNOMED Code(s): 382299902, 243729412 Code(s): D72.829 - ELEVATED WHITE BLOOD CELL COUNT, UNSPECIFIED Status: Acute Priority: High Current Visit: Yes Qualifiers: Leukocytosis type: unspecified Qualified Code(s): D72.829 - Elevated white blood cell count, unspecified (5) Morbid obesity with BMI of 40.0-44.9, adult SNOMED Code(s): 434164968, 42864727929950 Code(s): E66.01 - MORBID (SEVERE) OBESITY DUE TO EXCESS CALORIES; Z68.41 - BODY MASS INDEX (BMI) 40.0-44.9, ADULT Status: Chronic Priority: High Current Visit: Yes (6) Tobacco abuse SNOMED Code(s): 084390484 Code(s): Z72.0 - TOBACCO USE Status: Chronic Priority: Medium Current Visit: Yes
--- NOTE | 2018-12-22 08:13 | PCM.PREANE ---
Preanesthetic Assessment - Anesthesia/Transfusion/Family Hx Anesthesia History: Prior Anesthesia Without Reaction Family History of Anesthesia Reaction: No - Review of Systems General: No Symptoms Pulmonary: No Symptoms Cardiovascular: No Symptoms Gastrointestinal: No Symptoms Neurological: No Symptoms Other: Reports: None - Physical Assessment NPO Status Date: 12/21/18 O2 Sat by Pulse Oximetry: 98 Respiratory Rate: 20 Temperature: 101 F Vital Signs: Last Vital Signs Temp 99 F 12/22/18 07:22 Pulse 78 12/22/18 07:22 Resp 20 12/22/18 07:22 BP 133/64 12/22/18 07:22 Pulse Ox 98 12/22/18 07:22 Height: 5 ft 5 in Weight: 110.818 kg ASA Class: 2 Mental Status: Alert & Oriented x3 Airway Class: Mallampati = 3 Dentition: Reports: Normal Dentition ROM/Head Extension: Full Lungs: Clear to Auscultation, Normal Respiratory Effort Cardiovascular: Regular Rate, Regular Rhythm - Lab Values: Laboratory Last Values WBC 7.80 K/uL (4.0-11.0) 12/22/18 05:58 RBC 3.36 M/uL (4.30-5.90) L 12/22/18 05:58 Hgb 9.9 g/dL (12.0-16.0) L 12/22/18 05:58 Hct 30.6 % (36.0-46.0) L 12/22/18 05:58 MCV 91.1 fL (80.0-98.0) 12/22/18 05:58 MCH 29.5 pg (27.0-32.0) 12/22/18 05:58 MCHC 32.4 g/dL (31.0-37.0) 12/22/18 05:58 RDW Std Deviation 48.7 fl (28.0-62.0) 12/22/18 05:58 RDW Coeff of Rachelle 15 % (11.0-15.0) 12/22/18 05:58 Plt Count 245 K/uL (150-400) 12/22/18 05:58 MPV 8.80 fL (7.40-12.00) 12/22/18 05:58 Neut % (Auto) 73.7 % (48.0-80.0) 12/22/18 05:58 Lymph % (Auto) 14.5 % (16.0-40.0) L 12/22/18 05:58 [place] % (Auto) 8.5 % (0.0-15.0) 12/22/18 05:58 Eos % (Auto) 3.2 % (0.0-7.0) 12/22/18 05:58 Baso % (Auto) 0.1 % (0.0-1.5) 12/22/18 05:58 Neut # (Auto) 5.8 K/uL (1.4-5.7) H 12/22/18 05:58 Lymph # (Auto) 1.1 K/uL (0.6-2.4) 12/22/18 05:58 [place] # (Auto) 0.7 K/uL (0.0-0.8) 12/22/18 05:58 Eos # (Auto) 0.3 K/uL (0.0-0.7) 12/22/18 05:58 Baso # (Auto) 0.0 K/uL (0.0-0.1) 12/22/18 05:58 Nucleated RBC % 0.0 /100WBC 12/22/18 05:58 Nucleated RBCs # 0 K/uL 12/22/18 05:58 Lactate 1.2 mmol/L (0.20-2.00) 12/19/18 15:17 Sodium 143 mmol/L (136-145) 12/22/18 05:58 Potassium 3.9 mmol/L (3.5-5.1) 12/22/18 05:58 Chloride 110 mmol/L (98-107) H 12/22/18 05:58 Carbon Dioxide 23.2 mmol/L (21.0-32.0) 12/22/18 05:58 BUN 6 mg/dL (7.0-18.0) L 12/22/18 05:58 Creatinine 0.8 mg/dL (0.6-1.0) 12/22/18 05:58 Est Cr Clr Drug Dosing 89.16 mL/min 12/22/18 05:58 Estimated GFR (MDRD) > 60.0 ml/min 12/22/18 05:58 Glucose 109 mg/dL (74-106) H 12/22/18 05:58 Hemoglobin A1c 5.7 % (4.5-6.2) 12/19/18 15:17 Calcium 7.9 mg/dL (8.5-10.1) L 12/22/18 05:58 Total Bilirubin 0.4 mg/dL (0.2-1.0) 12/20/18 05:25 AST 8 IU/L (15-37) L 12/20/18 05:25 ALT 12 IU/L (14-63) L 12/20/18 05:25 Alkaline Phosphatase 79 U/L (46-116) 12/20/18 05:25 Total Protein 6.2 g/dL (6.4-8.2) L 12/20/18 05:25 Albumin 2.1 g/dL (3.4-5.0) L 12/20/18 05:25 Globulin 4.1 g/dL (2.6-4.0) H 12/20/18 05:25 Albumin/Globulin Ratio 0.5 (0.9-1.6) L 12/20/18 05:25 HCG, Qual NEGATIVE (NEG) 12/20/18 05:25 Urine Color DARK YELLOW 12/19/18 23:28 Urine Appearance SLT CLOUDY 12/19/18 23:28 Urine pH 5.0 (5.0-8.0) 12/19/18 23:28 Ur Specific [place] >= 1.030 (1.001-1.035) 12/19/18 23:28 Urine Protein 100 mg/dL (NEGATIVE) H 12/19/18 23:28 Urine Glucose (UA) NEGATIVE mg/dL (NEGATIVE) 12/19/18 23:28 Urine Ketones TRACE mg/dL (NEGATIVE) H 12/19/18 23:28 Urine Occult Blood LARGE (NEGATIVE) H 12/19/18 23:28 Urine Nitrite POSITIVE (NEGATIVE) H 12/19/18 23:28 Urine Bilirubin SMALL (NEGATIVE) H 12/19/18 23:28 Urine Ictotest NEGATIVE 12/19/18 23:28 Urine Urobilinogen 1.0 EU/dL (<2.0) 12/19/18 23:28 Ur Leukocyte Esterase NEGATIVE (NEGATIVE) 12/19/18 23:28 Urine RBC 5-7 (0-2/HPF) 12/19/18 23:28 Urine WBC 0-3 (0-5/HPF) 12/19/18 23:28 Ur Epithelial Cells MODERATE (NONE-FEW) 12/19/18 23:28 Amorphous Sediment LIGHT (NEGATIVE) 12/19/18 23:28 Urine Bacteria 1+ (NEGATIVE) H 12/19/18 23:28 Urine Mucus MODERATE (NONE-MOD) 12/19/18 23:28 Urinalysis Comment 12/19/18 23:28 Vancomycin Trough 12.9 ug/mL (5.0-10.0) H 12/21/18 10:40 - Allergies Allergies/Adverse Reactions: Allergies Allergy/AdvReac Type Severity Reaction Status Date / Time No Known Allergies Allergy Verified 12/06/14 05:34 - Blood Blood Available: No - Anesthesia Plan Pre-Op Medication Ordered: None - Acknowledgements Anesthesia Type Planned: General Anesthesia Pt an Appropriate Candidate for the Planned Anesthesia: Yes Alternatives and Risks of Anesthesia Discussed w Pt/Guardian: Yes Pt/Guardian Understands and Agrees with Anesthesia Plan: Yes Additional Comments: PMH: MO with BMI=40, smoker, at risk for JUANITA based on weight and neck circumference, on lovenox PLAN: GET if prone, GA-LMA if lateral PreAnesthesia Questionnaire HEENT History: Reports: None Cardiovascular History: Reports: None Respiratory History: Reports: None Gastrointestinal History: Reports: None Genitourinary History: Reports: None 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: Reports: Neurological History: Reports: None Psychiatric History: Reports: None Endocrine/Metabolic History: Reports: None Hematologic History: Reports: None Oncologic (Cancer) History: Reports: None Dermatologic History: Reports: Chronic Cellulitis, Other (See Below) - Infectious Disease History Infectious Disease History: Reports: Chicken Pox, MRSA - Past Surgical History Female Surgical History: Reports: None Other Musculoskeletal Surgeries/Procedures:: multiple left knee surgeries per pt - SUBSTANCE USE Smoking Status *Q: Current Every Day Smoker Tobacco Use Within Last Twelve Months: Cigarettes Second Hand Smoke Exposure: Yes Days Per Week of Alcohol Use: 1 Number of Drinks Per Day: 3 Total Drinks Per Week: 3 Date of Last Drink: 12/16/18 Recreational Drug Use History: No - HOME MEDS Home Medications: Home Meds . [No Known Home Meds] 12/19/18 [History] - CURRENT (IN HOUSE) MEDS Current Meds: Current Medications Acetaminophen (Tylenol) 650 mg PO Q4H PRN PRN Reason: Pain (Mild 1-3)/fever Last Admin: 12/21/18 20:57 Dose: 650 mg Docusate Sodium (Colace) 100 mg PO BID [facility] Last Admin: 12/21/18 20:51 Dose: 100 mg Enoxaparin Sodium (Lovenox) 40 mg SUBCUT Q24H [facility] Last Admin: 12/21/18 18:33 Dose: 40 mg Piperacillin Sod/Tazobactam (Sod 3.375 gm/ Sodium Chloride) 50 mls @ 100 mls/ hr IV Q6H [facility] Last Admin: 12/22/18 02:00 Dose: 100 mls/hr Sodium Chloride (Normal Saline) 1,000 mls @ 150 mls/hr IV ASDIRECTED [facility] Last Admin: 12/22/18 01:51 Dose: 150 mls/hr Vancomycin HCl 1.5 gm/ Sodium (Chloride) 500 mls @ 250 mls/hr IV Q8H [facility] Last Admin: 12/22/18 02:39 Dose: 250 mls/hr Metronidazole (Metronidazole) 500 mg PO Q12HR [facility] Last Admin: 12/21/18 20:57 Dose: 500 mg Morphine Sulfate (Morphine) 2 mg IVPUSH Q3H PRN PRN Reason: severe Pain Last Admin: 12/20/18 15:42 Dose: 2 mg Nicotine (Habitrol) 14 mg TRDERM DAILY [facility] Last Admin: 12/21/18 09:19 Dose: Not Given Ondansetron HCl (Zofran Odt) 4 mg PO Q6H PRN PRN Reason: nausea, able to take PO Oxycodone HCl (Oxycodone) 5 mg PO Q4H PRN PRN Reason: Pain (moderate 4-6) Last Admin: 12/21/18 11:45 Dose: 5 mg Temazepam (Restoril) 15 mg PO BEDTIME PRN PRN Reason: Sleep Vancomycin HCl (Pharmacy To Dose - Vancomycin) 1 dose .XX ASDIRECTED [facility] Discontinued Medications Docusate Sodium (Colace) 100 mg PO BID PRN PRN Reason: Constipation Enoxaparin Sodium (Lovenox) 40 mg SUBCUT Q24H [facility] Last Admin: 12/19/18 18:42 Dose: Not Given Sodium Chloride (Normal Saline) 1,000 mls @ 999 mls/hr IV STAT ONE Stop: 12/19/18 16:01 Last Admin: 12/19/18 15:21 Dose: 999 mls/hr Vancomycin HCl 1 gm/ Sodium (Chloride) 250 mls @ 250 mls/hr IV ONETIME ONE Stop: 12/19/18 16:18 Last Admin: 12/19/18 15:44 Dose: 250 mls/hr Clindamycin Phosphate 300 mg/ (Premix) 50 mls @ 100 mls/hr IV Q8H [facility] Last Admin: 12/20/18 08:09 Dose: 100 mls/hr Sodium Chloride (Normal Saline) 1,000 mls @ 100 mls/hr IV ASDIRECTED [facility] Last Admin: 12/20/18 03:51 Dose: 100 mls/hr Sodium Chloride (Normal Saline) 1,000 mls @ 999 mls/hr IV .Bolus ONE Stop: 12/20/18 09:45 Last Admin: 12/20/18 09:53 Dose: 999 mls/hr Iopamidol (Isovue Multipack-370 (76%)) 90 ml IVPUSH ONETIME STA Stop: 12/20/18 10:45 Last Admin: 12/20/18 10:46 Dose: 90 ml Ketorolac Tromethamine (Toradol) 30 mg IVPUSH ONETIME ONE Stop: 12/19/18 15:02 Last Admin: 12/19/18 15:21 Dose: 30 mg Morphine Sulfate (Morphine) 2 mg IVPUSH ONETIME ONE Stop: 12/19/18 16:10 Last Admin: 12/19/18 16:15 Dose: 2 mg
[2018-12-22] MEDS: metroNIDAZOLE 250 MG Tab PO SCH ×2 (08:24→21:29)
[2018-12-22] MEDS: Nicotine 14 MG/24 Hr Patch TRDERM SCH (08:36)
[2018-12-22] MEDS: Docusate Sodium 100 MG Cap PO SCH ×2 (08:37→21:29)
[2018-12-22] MEDS ORDERED: fentaNYL 100 MCG/2 ML SDV ONE (09:56)
[2018-12-22] MEDS ORDERED: Midazolam 1 MG/ML 2 ML SDV ONE (09:56)
[2018-12-22] MEDS ORDERED: Propofol 200 MG/20 ML SDV ONE ×2 (09:56→11:54)
[2018-12-22] MEDS ORDERED: Lidocaine 2% 5 ML SDV ONE (09:56)
[2018-12-22] MEDS ORDERED: Ondansetron 4 MG/2 ML SDV ONE (09:56)
[2018-12-22] MEDS ORDERED: Lidocaine 1% with EPINEPHrine 1:100,000 20 ML MDV ONE (10:34)
[2018-12-22] MEDS ORDERED: Bupivacaine 0.5% 10 ML SDV ONE (11:11)
[2018-12-22] MEDS ORDERED: Bupivacaine 0.5% 30 ML SDV ONE (11:56)
[2018-12-22] MEDS ORDERED: Ketamine 500 mg/10 ML MDV ONE (11:56)
[2018-12-22] MEDS ORDERED: EPINEPHrine 1:10,000 1 MG/10 ML Syringe IVPUSH PRN (12:33)
[2018-12-22] MEDS ORDERED: Naloxone 0.4 MG/ML Syringe IVPUSH PRN (12:33)
[2018-12-22] MEDS ORDERED: fentaNYL 100 MCG/2 ML SDV IVPUSH PRN (12:33)
[2018-12-22] MEDS ORDERED: 50% Dextrose in Water 50 ML Syringe IVPUSH PRN (12:33)
[2018-12-22] MEDS ORDERED: Atropine 0.1 MG/ML 10 ML Syringe IVPUSH PRN ×2 (12:33)
--- NOTE | 2018-12-22 12:33 | PCM.OPNOTE ---
- General Post-Op/Procedure Note Date of Surgery/Procedure: 12/22/18 Operative Procedure(s): Incision and drainage right buttock abscesses Findings: Right buttock abscesses x 3. #1) 10 x 2 x 7 cm #2) 1 x 2 x 2 cm #3) 0.5 x 1.5 x 1.5 cm Pre Op Diagnosis: Buttock abscess Post-Op Diagnosis: same Anesthesia Technique: MAC Primary Surgeon: Lena Riggs Condition: Fair Free Text/Narrative:: Intake & Output 12/21/18 12/22/18 12/22/18 22:59 06:59 14:59 Intake Total 7856 5148 550 Output Total 250 1000 Balance 3199 785 777
--- NOTE | 2018-12-22 12:50 | PCM.POSTAN ---
POST ANESTHESIA ASSESSMENT - MENTAL STATUS Mental Status: Alert, Oriented - RESPIRATORY Respiratory Status: Respiratory Rate WNL, Airway Patent, O2 Saturation Stable - CARDIOVASCULAR CV Status: Pulse Rate WNL, Blood Pressure Stable - GASTROINTESTINAL GI Status: No Symptoms - POST OP HYDRATION Hydration Status: Adequate & Stable (No anesthesia complications)
--- NOTE | 2018-12-22 16:24 | OR ---
SURGEON: LENA RIGGS MD DATE OF PROCEDURE: 12/22/2018 PREOPERATIVE DIAGNOSIS: Right buttock abscess and cellulitis. POSTOPERATIVE DIAGNOSIS: Right buttock abscess and cellulitis. PROCEDURE PERFORMED: Incision and drainage of right buttock abscess x3. PRIMARY SURGEON: Lena Riggs MD. ANESTHESIA: Monitored anesthesia care. FLUIDS: 500 mL of crystalloid. ESTIMATED BLOOD LOSS: 25 mL. FINDINGS: Three right buttock abscesses. 1. 10 cm x 2 cm x 7 cm 2. 1 cm x 2 cm x 2 cm. 3. 0.5 x 1.5 x 1.5 cm. COMPLICATIONS: None. INDICATIONS: The patient is a 33-year-old female who presented with right buttock abscess and cellulitis. She is being treated with broad-spectrum antibiotics by the Medicine Team. She has started having drainage from these wounds. On physical examination, she has small areas of fluctuance. She is too tender to have these drained at bedside, so the decision was made to proceed to the operating room for incision and drainage. The patient and I discussed the procedure, expected perioperative course, and risks including bleeding or infection. She verbalized understanding and wishes to proceed. PROCEDURE IN DETAIL: The patient was brought into the OR and placed on the OR table in left lateral decubitus position. A time-out was completed verifying the patient's name, age, date of , allergies, and procedure to be performed. Monitored anesthesia care was induced. Once adequate anesthesia was achieved, the right buttocks was prepped and draped in usual standard fashion. I first explored her buttocks wounds with a hemostat. There were 5 pinpoint draining lesions. Two of these which were close to the gluteal crease were small and superficial. The other 3 tracked deeper and contained more fluid. The largest of these was the most superior. Using a 15 blade, I made a cruciate incision over the lesion, it immediately expressed a large amount of purulent material. I then explored the wound cavity and found that it tracked laterally toward the hip. It then came back up toward the skin. A counter incision was made using a 15 blade. I then placed a [place] drain through this new incision and carried out through my initial incision. Using my finger, I broke up any loculations that were inside the wound. It was then copiously irrigated with normal saline. I measured the wound and it was roughly 10 cm in length, 2 cm in width, and 7 cm in depth. I then turned my attention to the other 2 wounds. I opened these similarly with cruciate incisions and took off the edges using electrocautery. The other 2 lesions measured 1 x 2 x 2 cm and 0.5 x 1.5 x 1.5 cm respectively. These were also irrigated out. I then packed all 3 wounds with Kerlix gauze and covered them with 4 x 4 dressings. I secured the [place] drain in place with interrupted 3-0 silk suture on either side of the drain. The dressings were then secured in place with Medipore tape. The patient tolerated the procedure well and was transferred to the PACU in stable condition. All counts were complete and correct at the end of the case. CRISTIANE LINDA /[id number] MTDD
[2018-12-22] MEDS: Acetaminophen 325 MG Tab PO PRN (21:41)
[2018-12-23] MEDS: Vancomycin 1.5 GM in Sodium Chloride 0.9% 500 ML IV SCH (02:13)
[2018-12-23] MEDS: Piperacillin/Tazobactam 3.375 GM in Sodium Chloride 0.9% 50 ML IV SCH ×2 (02:13→08:45)
[2018-12-23] MEDS: Nicotine 14 MG/24 Hr Patch TRDERM SCH (08:45)
[2018-12-23] MEDS: metroNIDAZOLE 250 MG Tab PO SCH ×2 (08:45→21:52)
[2018-12-23] MEDS: Docusate Sodium 100 MG Cap PO SCH ×2 (08:47→21:52)
--- NOTE | 2018-12-23 09:45 | PCM.PN ---
<Teresa Cavazos M - Last Filed: 12/23/18 10:05> - General Info Date of Service: 12/23/18 Admission Dx/Problem (Free Text): R gluteal cellulitis and abscess Subjective Update: Feeling better today. Pain improved significantly. No chest pain or SOB. No other concerns. Functional Status: Reports: Pain Controlled, Tolerating Diet, Ambulating, Urinating - Review of Systems Pulmonary: Reports: No Symptoms. Denies: Shortness of Breath, Pleuritic Chest Pain, Cough Cardiovascular: Reports: No Symptoms. Denies: Chest Pain, Palpitations Gastrointestinal: Reports: No Symptoms. Denies: Abdominal Pain, Nausea, Vomiting Genitourinary: Reports: No Symptoms. Denies: Dysuria, Frequency, Burning Musculoskeletal: Reports: No Symptoms Skin: Reports: Other (erythema, improved along with pain to buttock) Neurological: Reports: No Symptoms Psychiatric: Reports: No Symptoms - Patient Data Vitals - Most Recent: Last Vital Signs Temp 98.1 F 12/23/18 08:45 Pulse 64 12/23/18 08:45 Resp 16 12/23/18 08:45 BP 158/76 H 12/23/18 08:45 Pulse Ox 95 12/23/18 08:45 Weight - Most Recent: 110.818 kg I&O - Last 24 Hours: Intake & Output 12/22/18 12/23/18 12/23/18 22:59 06:59 14:59 Intake Total 2045 1700 50 Output Total 1050 200 Balance 995 1500 50 Lab Results Last 24 Hours: Laboratory Results - last 24 hr 12/23/18 12/23/18 Range/Units 06:20 06:20 WBC 7.76 (4.0-11.0) K/uL RBC 3.32 L (4.30-5.90) M/uL Hgb 9.6 L (12.0-16.0) g/dL Hct 30.2 L (36.0-46.0) % MCV 91.0 (80.0-98.0) fL MCH 28.9 (27.0-32.0) pg MCHC 31.8 (31.0-37.0) g/dL RDW Std Deviation 48.7 (28.0-62.0) fl RDW Coeff of Rachelle 15 (11.0-15.0) % Plt Count 278 (150-400) K/uL MPV 9.10 (7.40-12.00) fL Neut % (Auto) 74.4 (48.0-80.0) % Lymph % (Auto) 13.8 L (16.0-40.0) % [place] % (Auto) 9.1 (0.0-15.0) % Eos % (Auto) 2.7 (0.0-7.0) % Baso % (Auto) 0.0 (0.0-1.5) % Neut # (Auto) 5.8 H (1.4-5.7) K/uL Lymph # (Auto) 1.1 (0.6-2.4) K/uL [place] # (Auto) 0.7 (0.0-0.8) K/uL Eos # (Auto) 0.2 (0.0-0.7) K/uL Baso # (Auto) 0.0 (0.0-0.1) K/uL Nucleated RBC % 0.0 /100WBC Nucleated RBCs # 0 K/uL Sodium 142 (136-145) mmol/L Potassium 3.9 (3.5-5.1) mmol/L Chloride 111 H (98-107) mmol/L Carbon Dioxide 22.0 (21.0-32.0) mmol/L BUN 9 (7.0-18.0) mg/dL Creatinine 1.5 H (0.6-1.0) mg/dL Est Cr Clr Drug Dosing 47.55 mL/min Estimated GFR (MDRD) 39.8 ml/min Glucose 113 H (74-106) mg/dL Calcium 8.0 L (8.5-10.1) mg/dL Luis Armando Results Last 24 Hours: Microbiology 12/20/18 16:00 Wound Culture - Final Buttock, Right (Mrsa) Staphylococcus Aureus 12/19/18 15:28 Aerobic Blood Culture - Preliminary Blood - Venous - Lab Draw NO GROWTH AFTER 3 DAYS Anaerobic Blood Culture - Preliminary NO GROWTH AFTER 3 DAYS 12/19/18 15:28 Aerobic Blood Culture - Preliminary Blood - Venous NO GROWTH AFTER 3 DAYS Anaerobic Blood Culture - Preliminary NO GROWTH AFTER 3 DAYS Med Orders - Current: Current Medications Acetaminophen (Tylenol) 650 mg PO Q4H PRN PRN Reason: Pain (Mild 1-3)/fever Last Admin: 12/22/18 21:41 Dose: 650 mg Atropine Sulfate (Atropine 0.1 Mg/Ml) 0.5 mg IVPUSH ASDIRECTED PRN PRN Reason: Hypo-perfusion Atropine Sulfate (Atropine 0.1 Mg/Ml) 1 mg IVPUSH ASDIRECTED PRN PRN Reason: Hypo-Perfusion Dextrose/Water (Dextrose 50% In Water) 50 ml IVPUSH ASDIRECTED PRN PRN Reason: Hypoglycemia Docusate Sodium (Colace) 100 mg PO BID [facility] Last Admin: 12/23/18 08:47 Dose: 100 mg Epinephrine HCl (Epinephrine 1:10,000) 1 mg IVPUSH ASDIRECTED PRN PRN Reason: ACLS Guidelines Fentanyl (Sublimaze) 50 - 100 mcg IVPUSH Q5M PRN PRN Reason: Pain Vancomycin HCl 1.5 gm/ Sodium (Chloride) 500 mls @ 250 mls/hr IV Q8H [facility] Last Admin: 12/23/18 02:13 Dose: 250 mls/hr Metronidazole (Metronidazole) 500 mg PO Q12HR [facility] Last Admin: 12/23/18 08:45 Dose: 500 mg Morphine Sulfate (Morphine) 2 mg IVPUSH Q3H PRN PRN Reason: severe Pain Last Admin: 12/20/18 15:42 Dose: 2 mg Naloxone HCl (Narcan) 0.1 mg IVPUSH ASDIRECTED PRN PRN Reason: Respiratory Depression Nicotine (Habitrol) 14 mg TRDERM DAILY [facility] Last Admin: 12/23/18 08:45 Dose: Not Given Ondansetron HCl (Zofran Odt) 4 mg PO Q6H PRN PRN Reason: nausea, able to take PO Oxycodone HCl (Oxycodone) 5 mg PO Q4H PRN PRN Reason: Pain (moderate 4-6) Last Admin: 12/21/18 11:45 Dose: 5 mg Temazepam (Restoril) 15 mg PO BEDTIME PRN PRN Reason: Sleep Vancomycin HCl (Pharmacy To Dose - Vancomycin) 1 dose .XX ASDIRECTED [facility] Discontinued Medications Bupivacaine HCl (Sensorcaine-Mpf 0.5%) Confirm Administered Dose 10 ml .ROUTE .STK-MED ONE Stop: 12/22/18 11:12 Bupivacaine HCl (Marcaine 0.5%) Confirm Administered Dose 30 ml .ROUTE .STK-MED ONE Stop: 12/22/18 11:57 Docusate Sodium (Colace) 100 mg PO BID PRN PRN Reason: Constipation Enoxaparin Sodium (Lovenox) 40 mg SUBCUT Q24H [facility] Last Admin: 12/19/18 18:42 Dose: Not Given Enoxaparin Sodium (Lovenox) 40 mg SUBCUT Q24H [facility] Last Admin: 12/21/18 18:33 Dose: 40 mg Fentanyl (Sublimaze) Confirm Administered Dose 100 mcg .ROUTE .STK-MED ONE Stop: 12/22/18 09:57 Sodium Chloride (Normal Saline) 1,000 mls @ 999 mls/hr IV STAT ONE Stop: 12/19/18 16:01 Last Admin: 12/19/18 15:21 Dose: 999 mls/hr Vancomycin HCl 1 gm/ Sodium (Chloride) 250 mls @ 250 mls/hr IV ONETIME ONE Stop: 12/19/18 16:18 Last Admin: 12/19/18 15:44 Dose: 250 mls/hr Clindamycin Phosphate 300 mg/ (Premix) 50 mls @ 100 mls/hr IV Q8H [facility] Last Admin: 12/20/18 08:09 Dose: 100 mls/hr Sodium Chloride (Normal Saline) 1,000 mls @ 100 mls/hr IV ASDIRECTED [facility] Last Admin: 12/20/18 03:51 Dose: 100 mls/hr Piperacillin Sod/Tazobactam (Sod 3.375 gm/ Sodium Chloride) 50 mls @ 100 mls/ hr IV Q6H [facility] Last Admin: 12/23/18 08:45 Dose: 100 mls/hr Sodium Chloride (Normal Saline) 1,000 mls @ 999 mls/hr IV .Bolus ONE Stop: 12/20/18 09:45 Last Admin: 12/20/18 09:53 Dose: 999 mls/hr Sodium Chloride (Normal Saline) 1,000 mls @ 150 mls/hr IV ASDIRECTED [facility] Last Admin: 12/22/18 01:51 Dose: 150 mls/hr Iopamidol (Isovue Multipack-370 (76%)) 90 ml IVPUSH ONETIME STA Stop: 12/20/18 10:45 Last Admin: 12/20/18 10:46 Dose: 90 ml Ketamine HCl (Ketalar) Confirm Administered Dose 500 mg .ROUTE .STK-MED ONE Stop: 12/22/18 11:57 Ketorolac Tromethamine (Toradol) 30 mg IVPUSH ONETIME ONE Stop: 12/19/18 15:02 Last Admin: 12/19/18 15:21 Dose: 30 mg Lidocaine (Xylocaine-Mpf 2%) Confirm Administered Dose 5 ml .ROUTE .STK-MED ONE Stop: 12/22/18 09:57 Lidocaine/Epinephrine (Xylocaine 1% With Epinephrine 1:100,000) Confirm Administered Dose 20 ml .ROUTE .STK-MED ONE Stop: 12/22/18 10:35 Midazolam HCl (Versed 1 Mg/Ml) Confirm Administered Dose 2 mg .ROUTE .STK-MED ONE Stop: 12/22/18 09:57 Morphine Sulfate (Morphine) 2 mg IVPUSH ONETIME ONE Stop: 12/19/18 16:10 Last Admin: 12/19/18 16:15 Dose: 2 mg Ondansetron HCl (Zofran) Confirm Administered Dose 4 mg .ROUTE .STK-MED ONE Stop: 12/22/18 09:57 Propofol (Diprivan 20 Ml) Confirm Administered Dose 200 mg .ROUTE .STK-MED ONE Stop: 12/22/18 09:57 Propofol (Diprivan 20 Ml) Confirm Administered Dose 200 mg .ROUTE .STK-MED ONE Stop: 12/22/18 11:55 - Exam General: Alert, Oriented, Cooperative, No Acute Distress Lungs: Clear to Auscultation, Normal Respiratory Effort Cardiovascular: Regular Rate, Regular Rhythm GI/Abdominal Exam: Normal Bowel Sounds, Soft, Non-Tender, No Organomegaly Back Exam: Normal Inspection, Full Range of Motion Extremities: Normal Inspection, Normal Range of Motion, Non-Tender, No Pedal Edema Wound/Incisions: Dressing Dry and Intact (R gluteal dressing, appears saturated with serous fluid. Dr Riggs to do dressing change this morning.), Drainage, Erythema Improving Psy/Mental Status: Alert, Normal Affect, Normal Mood - Problem List & Annotations (1) Cellulitis of buttock, right SNOMED Code(s): 39289259 Code(s): L03.317 - CELLULITIS OF BUTTOCK Status: Acute Priority: High Current Visit: Yes (2) Leukocytosis SNOMED Code(s): 856189069, 217970938 Code(s): D72.829 - ELEVATED WHITE BLOOD CELL COUNT, UNSPECIFIED Status: Acute Priority: High Current Visit: Yes Qualifiers: Leukocytosis type: unspecified Qualified Code(s): D72.829 - Elevated white blood cell count, unspecified (3) Bacterial vaginosis SNOMED Code(s): 938559124 Code(s): N76.0 - ACUTE VAGINITIS; B96.89 - OTH BACTERIAL AGENTS THE CAUSE OF DISEASES CLASSD [id number] Status: Acute Current Visit: Yes (4) History of MRSA infection SNOMED Code(s): 214666478, 742575372 Code(s): Z86.14 - PERSONAL HISTORY OF METHICILLIN RESIS STAPH INFECTION Status: Chronic Priority: High Current Visit: Yes (5) Morbid obesity with BMI of 40.0-44.9, adult SNOMED Code(s): 886666119, 84090521441829 Code(s): E66.01 - MORBID (SEVERE) OBESITY DUE TO EXCESS CALORIES; Z68.41 - BODY MASS INDEX (BMI) 40.0-44.9, ADULT Status: Chronic Priority: High Current Visit: Yes (6) Tobacco abuse SNOMED Code(s): 609757492 Code(s): Z72.0 - TOBACCO USE Status: Chronic Priority: Medium Current Visit: Yes - Problem List Review Problem List Initiated/Reviewed/Updated: Yes - My Orders Last 24 Hours: My Active Orders 12/22/18 08:48 Patient Status [ADT] Stat 12/22/18 Lunch Regular Diet [DIET] - Plan Plan:: This 33 year old female admitted with R gluteal cellulitis 1. R gluteal cellulitis and abscess: Wound culture returns MRSA. To OR with Dr Riggs yesterday, see operative report. Continue Vancomycin and discontinue Zosyn. BC negative x 1 day. Continue Oxycodone and Morphine for pain control. VS stable. 2. Elevated Cr: Maybe related to Zosyn, will discontinue that today due to culture returning as MRSA. Monitor in am. 3. Bacterial vaginosis: Improved, Continue Flagyl 500 mg PO BID VTE Prophylaxis: Lovenox Dispo: 1-2 days pending improvement. <Felix Carrion - Last Filed: 05/23/19 11:40> - General Info Admission Dx/Problem (Free Text): I have seen and examined to patient independently of Teresa Cavazos CNP. I have discussed the case for care of this patient with her. I have reviewed and approve of the plan of care as outlined by LISA. Please see orders. Continue IV Abx. Ambulate. - Patient Data Vitals - Most Recent: Last Vital Signs Temp 36.7 C 12/23/18 10:06 Pulse 64 12/23/18 10:06 Resp 16 12/23/18 10:06 BP 158/76 H 12/23/18 10:06 Pulse Ox 95 12/23/18 10:06 I&O - Last 24 Hours: Intake & Output 12/22/18 12/23/18 12/23/18 22:59 06:59 14:59 Intake Total 2045 1700 50 Output Total 1050 200 Balance 995 1500 50 Lab Results Last 24 Hours: Laboratory Results - last 24 hr 12/23/18 12/23/18 Range/Units 06:20 06:20 WBC 7.76 (4.0-11.0) K/uL RBC 3.32 L (4.30-5.90) M/uL Hgb 9.6 L (12.0-16.0) g/dL Hct 30.2 L (36.0-46.0) % MCV 91.0 (80.0-98.0) fL MCH 28.9 (27.0-32.0) pg MCHC 31.8 (31.0-37.0) g/dL RDW Std Deviation 48.7 (28.0-62.0) fl RDW Coeff of Rachelle 15 (11.0-15.0) % Plt Count 278 (150-400) K/uL MPV 9.10 (7.40-12.00) fL Neut % (Auto) 74.4 (48.0-80.0) % Lymph % (Auto) 13.8 L (16.0-40.0) % [place] % (Auto) 9.1 (0.0-15.0) % Eos % (Auto) 2.7 (0.0-7.0) % Baso % (Auto) 0.0 (0.0-1.5) % Neut # (Auto) 5.8 H (1.4-5.7) K/uL Lymph # (Auto) 1.1 (0.6-2.4) K/uL [place] # (Auto) 0.7 (0.0-0.8) K/uL Eos # (Auto) 0.2 (0.0-0.7) K/uL Baso # (Auto) 0.0 (0.0-0.1) K/uL Nucleated RBC % 0.0 /100WBC Nucleated RBCs # 0 K/uL Sodium 142 (136-145) mmol/L Potassium 3.9 (3.5-5.1) mmol/L Chloride 111 H (98-107) mmol/L Carbon Dioxide 22.0 (21.0-32.0) mmol/L BUN 9 (7.0-18.0) mg/dL Creatinine 1.5 H (0.6-1.0) mg/dL Est Cr Clr Drug Dosing 47.55 mL/min Estimated GFR (MDRD) 39.8 ml/min Glucose 113 H (74-106) mg/dL Calcium 8.0 L (8.5-10.1) mg/dL Luis Armando Results Last 24 Hours: Microbiology 12/20/18 16:00 Wound Culture - Final Buttock, Right (Mrsa) Staphylococcus Aureus 12/19/18 15:28 Aerobic Blood Culture - Preliminary Blood - Venous - Lab Draw NO GROWTH AFTER 3 DAYS Anaerobic Blood Culture - Preliminary NO GROWTH AFTER 3 DAYS 12/19/18 15:28 Aerobic Blood Culture - Preliminary Blood - Venous NO GROWTH AFTER 3 DAYS Anaerobic Blood Culture - Preliminary NO GROWTH AFTER 3 DAYS Med Orders - Current: Current Medications Acetaminophen (Tylenol) 650 mg PO Q4H PRN PRN Reason: Pain (Mild 1-3)/fever Last Admin: 12/22/18 21:41 Dose: 650 mg Atropine Sulfate (Atropine 0.1 Mg/Ml) 0.5 mg IVPUSH ASDIRECTED PRN PRN Reason: Hypo-perfusion Atropine Sulfate (Atropine 0.1 Mg/Ml) 1 mg IVPUSH ASDIRECTED PRN PRN Reason: Hypo-Perfusion Dextrose/Water (Dextrose 50% In Water) 50 ml IVPUSH ASDIRECTED PRN PRN Reason: Hypoglycemia Docusate Sodium (Colace) 100 mg PO BID JON Last Admin: 12/23/18 08:47 Dose: 100 mg Epinephrine HCl (Epinephrine 1:10,000) 1 mg IVPUSH ASDIRECTED PRN PRN Reason: ACLS Guidelines Fentanyl (Sublimaze) 50 - 100 mcg IVPUSH Q5M PRN PRN Reason: Pain Clindamycin Phosphate 600 mg/ (Premix) 50 mls @ 100 mls/hr IV Q8H [facility] Metronidazole (Metronidazole) 500 mg PO Q12HR [facility] Last Admin: 12/23/18 08:45 Dose: 500 mg Morphine Sulfate (Morphine) 2 mg IVPUSH Q3H PRN PRN Reason: severe Pain Last Admin: 12/23/18 11:05 Dose: 2 mg Naloxone HCl (Narcan) 0.1 mg IVPUSH ASDIRECTED PRN PRN Reason: Respiratory Depression Nicotine (Habitrol) 14 mg TRDERM DAILY [facility] Last Admin: 12/23/18 08:45 Dose: Not Given Ondansetron HCl (Zofran Odt) 4 mg PO Q6H PRN PRN Reason: nausea, able to take PO Oxycodone HCl (Oxycodone) 5 mg PO Q4H PRN PRN Reason: Pain (moderate 4-6) Last Admin: 12/23/18 10:53 Dose: 5 mg Temazepam (Restoril) 15 mg PO BEDTIME PRN PRN Reason: Sleep Discontinued Medications Bupivacaine HCl (Sensorcaine-Mpf 0.5%) Confirm Administered Dose 10 ml .ROUTE .STK-MED ONE Stop: 12/22/18 11:12 Bupivacaine HCl (Marcaine 0.5%) Confirm Administered Dose 30 ml .ROUTE .STK-MED ONE Stop: 12/22/18 11:57 Docusate Sodium (Colace) 100 mg PO BID PRN PRN Reason: Constipation Enoxaparin Sodium (Lovenox) 40 mg SUBCUT Q24H [facility] Last Admin: 12/19/18 18:42 Dose: Not Given Enoxaparin Sodium (Lovenox) 40 mg SUBCUT Q24H [facility] Last Admin: 12/21/18 18:33 Dose: 40 mg Fentanyl (Sublimaze) Confirm Administered Dose 100 mcg .ROUTE .STK-MED ONE Stop: 12/22/18 09:57 Sodium Chloride (Normal Saline) 1,000 mls @ 999 mls/hr IV STAT ONE Stop: 12/19/18 16:01 Last Admin: 12/19/18 15:21 Dose: 999 mls/hr Vancomycin HCl 1 gm/ Sodium (Chloride) 250 mls @ 250 mls/hr IV ONETIME ONE Stop: 12/19/18 16:18 Last Admin: 12/19/18 15:44 Dose: 250 mls/hr Clindamycin Phosphate 300 mg/ (Premix) 50 mls @ 100 mls/hr IV Q8H [facility] Last Admin: 12/20/18 08:09 Dose: 100 mls/hr Sodium Chloride (Normal Saline) 1,000 mls @ 100 mls/hr IV ASDIRECTED [facility] Last Admin: 12/20/18 03:51 Dose: 100 mls/hr Piperacillin Sod/Tazobactam (Sod 3.375 gm/ Sodium Chloride) 50 mls @ 100 mls/ hr IV Q6H [facility] Last Admin: 12/23/18 08:45 Dose: 100 mls/hr Sodium Chloride (Normal Saline) 1,000 mls @ 999 mls/hr IV .Bolus ONE Stop: 12/20/18 09:45 Last Admin: 12/20/18 09:53 Dose: 999 mls/hr Sodium Chloride (Normal Saline) 1,000 mls @ 150 mls/hr IV ASDIRECTED [facility] Last Admin: 12/22/18 01:51 Dose: 150 mls/hr Vancomycin HCl 1.5 gm/ Sodium (Chloride) 500 mls @ 250 mls/hr IV Q8H [facility] Last Admin: 12/23/18 02:13 Dose: 250 mls/hr Iopamidol (Isovue Multipack-370 (76%)) 90 ml IVPUSH ONETIME STA Stop: 12/20/18 10:45 Last Admin: 12/20/18 10:46 Dose: 90 ml Ketamine HCl (Ketalar) Confirm Administered Dose 500 mg .ROUTE .STK-MED ONE Stop: 12/22/18 11:57 Ketorolac Tromethamine (Toradol) 30 mg IVPUSH ONETIME ONE Stop: 12/19/18 15:02 Last Admin: 12/19/18 15:21 Dose: 30 mg Lidocaine (Xylocaine-Mpf 2%) Confirm Administered Dose 5 ml .ROUTE .STK-MED ONE Stop: 12/22/18 09:57 Lidocaine/Epinephrine (Xylocaine 1% With Epinephrine 1:100,000) Confirm Administered Dose 20 ml .ROUTE .STK-MED ONE Stop: 12/22/18 10:35 Midazolam HCl (Versed 1 Mg/Ml) Confirm Administered Dose 2 mg .ROUTE .STK-MED ONE Stop: 12/22/18 09:57 Morphine Sulfate (Morphine) 2 mg IVPUSH ONETIME ONE Stop: 12/19/18 16:10 Last Admin: 12/19/18 16:15 Dose: 2 mg Ondansetron HCl (Zofran) Confirm Administered Dose 4 mg .ROUTE .STK-MED ONE Stop: 12/22/18 09:57 Propofol (Diprivan 20 Ml) Confirm Administered Dose 200 mg .ROUTE .STK-MED ONE Stop: 12/22/18 09:57 Propofol (Diprivan 20 Ml) Confirm Administered Dose 200 mg .ROUTE .STK-MED ONE Stop: 12/22/18 11:55 Vancomycin HCl (Pharmacy To Dose - Vancomycin) 1 dose .XX ASDIRECTED JON - Problem List & Annotations (1) Cellulitis of buttock, right SNOMED Code(s): 86267824 Code(s): L03.317 - CELLULITIS OF BUTTOCK Status: Acute Priority: High Current Visit: Yes (2) History of MRSA infection SNOMED Code(s): 828496342, 577017980 Code(s): Z86.14 - PERSONAL HISTORY OF METHICILLIN RESIS STAPH INFECTION Status: Chronic Priority: High Current Visit: Yes (3) Hyperglycemia SNOMED Code(s): 12541695 Code(s): R73.9 - HYPERGLYCEMIA, UNSPECIFIED Status: Acute Priority: High Current Visit: Yes (4) Leukocytosis SNOMED Code(s): 887669324, 918583419 Code(s): D72.829 - ELEVATED WHITE BLOOD CELL COUNT, UNSPECIFIED Status: Acute Priority: High Current Visit: Yes Qualifiers: Leukocytosis type: unspecified Qualified Code(s): D72.829 - Elevated white blood cell count, unspecified (5) Morbid obesity with BMI of 40.0-44.9, adult SNOMED Code(s): 384151056, 39320942003591 Code(s): E66.01 - MORBID (SEVERE) OBESITY DUE TO EXCESS CALORIES; Z68.41 - BODY MASS INDEX (BMI) 40.0-44.9, ADULT Status: Chronic Priority: High Current Visit: Yes (6) Tobacco abuse SNOMED Code(s): 605318776 Code(s): Z72.0 - TOBACCO USE Status: Chronic Priority: Medium Current Visit: Yes
--- NOTE | 2018-12-23 10:06 | PCM48HPAN ---
Post Anesthesia Note - EVALUATION WITHIN 48HRS OF ANESTHETIC Vital Signs in Normal Range: Yes Patient Participated in Evaluation: Yes Respiratory Function Stable: Yes Airway Patent: Yes Cardiovascular Function Stable: Yes Hydration Status Stable: Yes Pain Control Satisfactory: Yes Nausea and Vomiting Control Satisfactory: Yes Mental Status Recovered: Yes Pulse Rate: 64 SaO2: 95 Resp Rate: 16 Temperature: 98.1 F Blood Pressure: 158/76
[2018-12-23] MEDS: oxyCODONE 5 MG Tab PO PRN ×2 (10:53→21:58)
[2018-12-23] MEDS: Morphine 2 MG/ML Syringe IVPUSH PRN (11:05)
--- NOTE | 2018-12-23 11:28 | PCM.SURGPN ---
- General Info Date of Service: 12/23/18 Date of Surgery/Procedure: 12/22/18 POD#: 1 Functional Status: Reports: Pain Controlled, Tolerating Diet, Ambulating, Urinating - Review of Systems General: Reports: No Symptoms Gastrointestinal: Reports: No Symptoms - Patient Data Vitals - Most Recent: Last Vital Signs Temp 36.7 C 12/23/18 10:06 Pulse 64 12/23/18 10:06 Resp 16 12/23/18 10:06 BP 158/76 H 12/23/18 10:06 Pulse Ox 95 12/23/18 10:06 Weight - Most Recent: 110.818 kg I&O - Last 24 Hours: Intake & Output 12/22/18 12/23/18 12/23/18 22:59 06:59 14:59 Intake Total 2045 1700 50 Output Total 1050 200 Balance 995 1500 50 Lab Results Last 24 Hrs: Laboratory Results - last 24 hr 12/23/18 12/23/18 Range/Units 06:20 06:20 WBC 7.76 (4.0-11.0) K/uL RBC 3.32 L (4.30-5.90) M/uL Hgb 9.6 L (12.0-16.0) g/dL Hct 30.2 L (36.0-46.0) % MCV 91.0 (80.0-98.0) fL MCH 28.9 (27.0-32.0) pg MCHC 31.8 (31.0-37.0) g/dL RDW Std Deviation 48.7 (28.0-62.0) fl RDW Coeff of Rachelle 15 (11.0-15.0) % Plt Count 278 (150-400) K/uL MPV 9.10 (7.40-12.00) fL Neut % (Auto) 74.4 (48.0-80.0) % Lymph % (Auto) 13.8 L (16.0-40.0) % [place] % (Auto) 9.1 (0.0-15.0) % Eos % (Auto) 2.7 (0.0-7.0) % Baso % (Auto) 0.0 (0.0-1.5) % Neut # (Auto) 5.8 H (1.4-5.7) K/uL Lymph # (Auto) 1.1 (0.6-2.4) K/uL [place] # (Auto) 0.7 (0.0-0.8) K/uL Eos # (Auto) 0.2 (0.0-0.7) K/uL Baso # (Auto) 0.0 (0.0-0.1) K/uL Nucleated RBC % 0.0 /100WBC Nucleated RBCs # 0 K/uL Sodium 142 (136-145) mmol/L Potassium 3.9 (3.5-5.1) mmol/L Chloride 111 H (98-107) mmol/L Carbon Dioxide 22.0 (21.0-32.0) mmol/L BUN 9 (7.0-18.0) mg/dL Creatinine 1.5 H (0.6-1.0) mg/dL Est Cr Clr Drug Dosing 47.55 mL/min Estimated GFR (MDRD) 39.8 ml/min Glucose 113 H (74-106) mg/dL Calcium 8.0 L (8.5-10.1) mg/dL Luis Armando Results Last 24 Hrs: Microbiology 12/20/18 16:00 Wound Culture - Final Buttock, Right (Mrsa) Staphylococcus Aureus 12/19/18 15:28 Aerobic Blood Culture - Preliminary Blood - Venous - Lab Draw NO GROWTH AFTER 3 DAYS Anaerobic Blood Culture - Preliminary NO GROWTH AFTER 3 DAYS 12/19/18 15:28 Aerobic Blood Culture - Preliminary Blood - Venous NO GROWTH AFTER 3 DAYS Anaerobic Blood Culture - Preliminary NO GROWTH AFTER 3 DAYS Med Orders - Current: Current Medications Acetaminophen (Tylenol) 650 mg PO Q4H PRN PRN Reason: Pain (Mild 1-3)/fever Last Admin: 12/22/18 21:41 Dose: 650 mg Atropine Sulfate (Atropine 0.1 Mg/Ml) 0.5 mg IVPUSH ASDIRECTED PRN PRN Reason: Hypo-perfusion Atropine Sulfate (Atropine 0.1 Mg/Ml) 1 mg IVPUSH ASDIRECTED PRN PRN Reason: Hypo-Perfusion Dextrose/Water (Dextrose 50% In Water) 50 ml IVPUSH ASDIRECTED PRN PRN Reason: Hypoglycemia Docusate Sodium (Colace) 100 mg PO BID JON Last Admin: 12/23/18 08:47 Dose: 100 mg Epinephrine HCl (Epinephrine 1:10,000) 1 mg IVPUSH ASDIRECTED PRN PRN Reason: ACLS Guidelines Fentanyl (Sublimaze) 50 - 100 mcg IVPUSH Q5M PRN PRN Reason: Pain Clindamycin Phosphate 600 mg/ (Premix) 50 mls @ 100 mls/hr IV Q8H [facility] Metronidazole (Metronidazole) 500 mg PO Q12HR [facility] Last Admin: 12/23/18 08:45 Dose: 500 mg Morphine Sulfate (Morphine) 2 mg IVPUSH Q3H PRN PRN Reason: severe Pain Last Admin: 12/23/18 11:05 Dose: 2 mg Naloxone HCl (Narcan) 0.1 mg IVPUSH ASDIRECTED PRN PRN Reason: Respiratory Depression Nicotine (Habitrol) 14 mg TRDERM DAILY [facility] Last Admin: 12/23/18 08:45 Dose: Not Given Ondansetron HCl (Zofran Odt) 4 mg PO Q6H PRN PRN Reason: nausea, able to take PO Oxycodone HCl (Oxycodone) 5 mg PO Q4H PRN PRN Reason: Pain (moderate 4-6) Last Admin: 12/23/18 10:53 Dose: 5 mg Temazepam (Restoril) 15 mg PO BEDTIME PRN PRN Reason: Sleep Discontinued Medications Bupivacaine HCl (Sensorcaine-Mpf 0.5%) Confirm Administered Dose 10 ml .ROUTE .STK-MED ONE Stop: 12/22/18 11:12 Bupivacaine HCl (Marcaine 0.5%) Confirm Administered Dose 30 ml .ROUTE .STK-MED ONE Stop: 12/22/18 11:57 Docusate Sodium (Colace) 100 mg PO BID PRN PRN Reason: Constipation Enoxaparin Sodium (Lovenox) 40 mg SUBCUT Q24H [facility] Last Admin: 12/19/18 18:42 Dose: Not Given Enoxaparin Sodium (Lovenox) 40 mg SUBCUT Q24H [facility] Last Admin: 12/21/18 18:33 Dose: 40 mg Fentanyl (Sublimaze) Confirm Administered Dose 100 mcg .ROUTE .STK-MED ONE Stop: 12/22/18 09:57 Sodium Chloride (Normal Saline) 1,000 mls @ 999 mls/hr IV STAT ONE Stop: 12/19/18 16:01 Last Admin: 12/19/18 15:21 Dose: 999 mls/hr Vancomycin HCl 1 gm/ Sodium (Chloride) 250 mls @ 250 mls/hr IV ONETIME ONE Stop: 12/19/18 16:18 Last Admin: 12/19/18 15:44 Dose: 250 mls/hr Clindamycin Phosphate 300 mg/ (Premix) 50 mls @ 100 mls/hr IV Q8H [facility] Last Admin: 12/20/18 08:09 Dose: 100 mls/hr Sodium Chloride (Normal Saline) 1,000 mls @ 100 mls/hr IV ASDIRECTED [facility] Last Admin: 12/20/18 03:51 Dose: 100 mls/hr Piperacillin Sod/Tazobactam (Sod 3.375 gm/ Sodium Chloride) 50 mls @ 100 mls/ hr IV Q6H [facility] Last Admin: 12/23/18 08:45 Dose: 100 mls/hr Sodium Chloride (Normal Saline) 1,000 mls @ 999 mls/hr IV .Bolus ONE Stop: 12/20/18 09:45 Last Admin: 12/20/18 09:53 Dose: 999 mls/hr Sodium Chloride (Normal Saline) 1,000 mls @ 150 mls/hr IV ASDIRECTED [facility] Last Admin: 12/22/18 01:51 Dose: 150 mls/hr Vancomycin HCl 1.5 gm/ Sodium (Chloride) 500 mls @ 250 mls/hr IV Q8H [facility] Last Admin: 12/23/18 02:13 Dose: 250 mls/hr Iopamidol (Isovue Multipack-370 (76%)) 90 ml IVPUSH ONETIME STA Stop: 12/20/18 10:45 Last Admin: 12/20/18 10:46 Dose: 90 ml Ketamine HCl (Ketalar) Confirm Administered Dose 500 mg .ROUTE .STK-MED ONE Stop: 12/22/18 11:57 Ketorolac Tromethamine (Toradol) 30 mg IVPUSH ONETIME ONE Stop: 12/19/18 15:02 Last Admin: 12/19/18 15:21 Dose: 30 mg Lidocaine (Xylocaine-Mpf 2%) Confirm Administered Dose 5 ml .ROUTE .STK-MED ONE Stop: 12/22/18 09:57 Lidocaine/Epinephrine (Xylocaine 1% With Epinephrine 1:100,000) Confirm Administered Dose 20 ml .ROUTE .STK-MED ONE Stop: 12/22/18 10:35 Midazolam HCl (Versed 1 Mg/Ml) Confirm Administered Dose 2 mg .ROUTE .STK-MED ONE Stop: 12/22/18 09:57 Morphine Sulfate (Morphine) 2 mg IVPUSH ONETIME ONE Stop: 12/19/18 16:10 Last Admin: 12/19/18 16:15 Dose: 2 mg Ondansetron HCl (Zofran) Confirm Administered Dose 4 mg .ROUTE .STK-MED ONE Stop: 12/22/18 09:57 Propofol (Diprivan 20 Ml) Confirm Administered Dose 200 mg .ROUTE .STK-MED ONE Stop: 12/22/18 09:57 Propofol (Diprivan 20 Ml) Confirm Administered Dose 200 mg .ROUTE .STK-MED ONE Stop: 12/22/18 11:55 Vancomycin HCl (Pharmacy To Dose - Vancomycin) 1 dose .XX ASDIRECTED JON - Exam Wound/Incisions: Healing Well, Other (Dressings removed. The wound appears clean dry and intact. Swelling and erythema greatly improved. ) General: Alert, Oriented, Cooperative Lungs: Normal Respiratory Effort Cardiovascular: Regular Rate GI/Abdominal Exam: Soft - Problem List & Annotations (1) Cellulitis of buttock, right SNOMED Code(s): 28972571 Code(s): L03.317 - CELLULITIS OF BUTTOCK Status: Acute Priority: High Current Visit: Yes (2) History of MRSA infection SNOMED Code(s): 456940500, 796402343 Code(s): Z86.14 - PERSONAL HISTORY OF METHICILLIN RESIS STAPH INFECTION Status: Chronic Priority: High Current Visit: Yes - Problem List Review Problem List Initiated/Reviewed/Updated: Yes - My Orders Last 24 Hours: Active Orders 24 hr Category Date Time Status Notify Provider Vital Signs [RC] ASDIRECTED Care 12/22/18 12:34 Active Vital Signs [RC] Q4H Care 12/22/18 12:34 Active Regular Diet [DIET] Diet 12/22/18 Lunch Active BMP [BASIC METABOLIC PANEL,BMP] [CHEM] AM Lab 12/24/18 05:11 Ordered BMP [BASIC METABOLIC PANEL,BMP] [CHEM] AM Lab 12/25/18 05:11 Ordered CBC WITH AUTO DIFF [HEME] AM Lab 12/24/18 05:11 Ordered CBC WITH AUTO DIFF [HEME] AM Lab 12/25/18 05:11 Ordered CULTURE ANAEROBIC [RM] Routine Lab 12/22/18 11:40 Received CULTURE WOUND [RM] Routine Lab 12/22/18 11:40 Received Atropine [Atropine 0.1 MG/ML] Med 12/22/18 12:33 Active 0.5 mg IVPUSH ASDIRECTED PRN Atropine [Atropine 0.1 MG/ML] Med 12/22/18 12:33 Active 1 mg IVPUSH ASDIRECTED PRN Clindamycin Phosphate in D5W [Cleocin in D5W] 600 mg Med 12/23/18 17:00 Active Premix Bag 50 bag IV Q8H Dextrose 50% in Water Med 12/22/18 12:33 Active 50 ml IVPUSH ASDIRECTED PRN EPINEPHrine [EPINEPHrine 1:10,000] Med 12/22/18 12:33 Active 1 mg IVPUSH ASDIRECTED PRN Naloxone [Narcan] Med 12/22/18 12:33 Active 0.1 mg IVPUSH ASDIRECTED PRN fentaNYL [Sublimaze] Med 12/22/18 12:33 Active 50 - 100 mcg IVPUSH Q5M PRN Medication Orders Acetaminophen (Tylenol) 650 mg PO Q4H PRN PRN Reason: Pain (Mild 1-3)/fever Last Admin: 12/22/18 21:41 Dose: 650 mg Admin: 12/21/18 20:57 Dose: 650 mg Admin: 12/20/18 18:16 Dose: 650 mg Admin: 12/20/18 08:28 Dose: 650 mg Atropine Sulfate (Atropine 0.1 Mg/Ml) 0.5 mg IVPUSH ASDIRECTED PRN PRN Reason: Hypo-perfusion Atropine Sulfate (Atropine 0.1 Mg/Ml) 1 mg IVPUSH ASDIRECTED PRN PRN Reason: Hypo-Perfusion Dextrose/Water (Dextrose 50% In Water) 50 ml IVPUSH ASDIRECTED PRN PRN Reason: Hypoglycemia Docusate Sodium (Colace) 100 mg PO BID JON Last Admin: 12/23/18 08:47 Dose: 100 mg Admin: 12/22/18 21:29 Dose: 100 mg Admin: 12/22/18 08:37 Dose: Admin: 12/21/18 20:51 Dose: 100 mg Epinephrine HCl (Epinephrine 1:10,000) 1 mg IVPUSH ASDIRECTED PRN PRN Reason: ACLS Guidelines Fentanyl (Sublimaze) 50 - 100 mcg IVPUSH Q5M PRN PRN Reason: Pain Clindamycin Phosphate 600 mg/ (Premix) 50 mls @ 100 mls/hr IV Q8H [facility] Metronidazole (Metronidazole) 500 mg PO Q12HR [facility] Last Admin: 12/23/18 08:45 Dose: 500 mg Admin: 12/22/18 21:29 Dose: 500 mg Admin: 12/22/18 08:24 Dose: Admin: 12/21/18 20:57 Dose: 500 mg Admin: 12/21/18 09:19 Dose: 500 mg Admin: 12/20/18 20:47 Dose: 500 mg Admin: 12/20/18 12:52 Dose: 500 mg Morphine Sulfate (Morphine) 2 mg IVPUSH Q3H PRN PRN Reason: severe Pain Last Admin: 12/23/18 11:05 Dose: 2 mg Admin: 12/20/18 15:42 Dose: 2 mg Admin: 12/20/18 09:48 Dose: 2 mg Naloxone HCl (Narcan) 0.1 mg IVPUSH ASDIRECTED PRN PRN Reason: Respiratory Depression Nicotine (Habitrol) 14 mg TRDERM DAILY [facility] Last Admin: 12/23/18 08:45 Dose: Not Given Admin: 12/22/18 08:36 Dose: Not Given Admin: 12/21/18 09:19 Dose: Not Given Admin: 12/20/18 08:15 Dose: Not Given Ondansetron HCl (Zofran Odt) 4 mg PO Q6H PRN PRN Reason: nausea, able to take PO Oxycodone HCl (Oxycodone) 5 mg PO Q4H PRN PRN Reason: Pain (moderate 4-6) Last Admin: 12/23/18 10:53 Dose: 5 mg Admin: 12/21/18 11:45 Dose: 5 mg Admin: 12/21/18 07:18 Dose: 5 mg Admin: 12/21/18 02:49 Dose: 5 mg Admin: 12/20/18 18:16 Dose: 5 mg Admin: 12/20/18 12:52 Dose: 5 mg Admin: 12/20/18 08:07 Dose: 5 mg Admin: 12/20/18 03:51 Dose: 5 mg Admin: 12/19/18 23:27 Dose: 5 mg Admin: 12/19/18 19:20 Dose: 5 mg Temazepam (Restoril) 15 mg PO BEDTIME PRN PRN Reason: Sleep - Plan Plan (Free Text/Narrative):: -Dressing changes daily. Wet to dry. -Follow up in my clinic early next week to remove cathy and wound change -Antibiotics per medicine team -Follow up in clinic in 1-2 weeks for wound check. -Will sign off call with questions or concerns.
[2018-12-23] MEDS: Clindamycin Phosphate in D5W 600 MG in Premix Bag 50 BAG IV SCH ×2 (17:00)
[2018-12-24] MEDS: Clindamycin Phosphate in D5W 600 MG in Premix Bag 50 BAG IV SCH ×6 (01:17→17:25)
--- NOTE | 2018-12-24 08:12 | PCM.PN ---
- General Info Date of Service: 12/24/18 Admission Dx/Problem (Free Text): R gluteal cellulitis and abscess Subjective Update: Reports pain is improving and she is feeling better today. No complaints besides wanting to shower. Reports rash to L leg. No chest pain or SOB. Functional Status: Reports: Pain Controlled, Tolerating Diet, Ambulating, Urinating - Review of Systems General: Reports: No Symptoms. Denies: Fever, Weakness Pulmonary: Reports: No Symptoms. Denies: Shortness of Breath Cardiovascular: Reports: No Symptoms. Denies: Chest Pain Gastrointestinal: Reports: No Symptoms. Denies: Abdominal Pain, Nausea, Vomiting Genitourinary: Reports: No Symptoms. Denies: Dysuria, Frequency, Burning Musculoskeletal: Reports: No Symptoms Skin: Reports: Rash Neurological: Reports: No Symptoms Psychiatric: Reports: No Symptoms - Patient Data Vitals - Most Recent: Last Vital Signs Temp 97.6 F 12/24/18 04:00 Pulse 67 12/24/18 04:00 Resp 18 12/24/18 04:00 BP 131/69 12/24/18 04:00 Pulse Ox 97 12/24/18 04:00 Weight - Most Recent: 110.818 kg I&O - Last 24 Hours: Intake & Output 12/23/18 12/24/18 12/24/18 22:59 06:59 14:59 Intake Total 950 1090 Output Total 850 700 Balance 100 390 Lab Results Last 24 Hours: Laboratory Results - last 24 hr 12/24/18 12/24/18 Range/Units 04:58 04:58 WBC 8.27 (4.0-11.0) K/uL RBC 3.38 L (4.30-5.90) M/uL Hgb 9.7 L (12.0-16.0) g/dL Hct 30.8 L (36.0-46.0) % MCV 91.1 (80.0-98.0) fL MCH 28.7 (27.0-32.0) pg MCHC 31.5 (31.0-37.0) g/dL RDW Std Deviation 48.9 (28.0-62.0) fl RDW Coeff of Rachelle 15 (11.0-15.0) % Plt Count 294 (150-400) K/uL MPV 8.90 (7.40-12.00) fL Neut % (Auto) 77.0 (48.0-80.0) % Lymph % (Auto) 12.9 L (16.0-40.0) % [place] % (Auto) 7.3 (0.0-15.0) % Eos % (Auto) 2.8 (0.0-7.0) % Baso % (Auto) 0.0 (0.0-1.5) % Neut # (Auto) 6.4 H (1.4-5.7) K/uL Lymph # (Auto) 1.1 (0.6-2.4) K/uL [place] # (Auto) 0.6 (0.0-0.8) K/uL Eos # (Auto) 0.2 (0.0-0.7) K/uL Baso # (Auto) 0.0 (0.0-0.1) K/uL Nucleated RBC % 0.0 /100WBC Nucleated RBCs # 0 K/uL Sodium 143 (136-145) mmol/L Potassium 3.7 (3.5-5.1) mmol/L Chloride 109 H (98-107) mmol/L Carbon Dioxide 25.9 (21.0-32.0) mmol/L BUN 9 (7.0-18.0) mg/dL Creatinine 1.7 H (0.6-1.0) mg/dL Est Cr Clr Drug Dosing 41.96 mL/min Estimated GFR (MDRD) 34.4 ml/min Glucose 145 H (74-106) mg/dL Calcium 8.2 L (8.5-10.1) mg/dL Luis Armando Results Last 24 Hours: Microbiology 12/22/18 11:40 Wound Culture - Final Buttock, Right (Mrsa) Staphylococcus Aureus 12/19/18 15:28 Aerobic Blood Culture - Preliminary Blood - Venous - Lab Draw NO GROWTH AFTER 4 DAYS Anaerobic Blood Culture - Preliminary NO GROWTH AFTER 4 DAYS 12/19/18 15:28 Aerobic Blood Culture - Preliminary Blood - Venous NO GROWTH AFTER 4 DAYS Anaerobic Blood Culture - Preliminary NO GROWTH AFTER 4 DAYS 12/20/18 16:00 Wound Culture - Final Buttock, Right (Mrsa) Staphylococcus Aureus Med Orders - Current: Current Medications Acetaminophen (Tylenol) 650 mg PO Q4H PRN PRN Reason: Pain (Mild 1-3)/fever Last Admin: 12/22/18 21:41 Dose: 650 mg Docusate Sodium (Colace) 100 mg PO BID [facility] Last Admin: 12/23/18 21:52 Dose: 100 mg Clindamycin Phosphate 600 mg/ (Premix) 50 mls @ 100 mls/hr IV Q8H [facility] Last Admin: 12/24/18 01:17 Dose: 100 mls/hr Sodium Chloride (Normal Saline) 1,000 mls @ 100 mls/hr IV ASDIRECTED [facility] Metronidazole (Metronidazole) 500 mg PO Q12HR [facility] Last Admin: 12/23/18 21:52 Dose: 500 mg Morphine Sulfate (Morphine) 2 mg IVPUSH Q3H PRN PRN Reason: severe Pain Last Admin: 12/23/18 11:05 Dose: 2 mg Nicotine (Habitrol) 14 mg TRDERM DAILY [facility] Last Admin: 12/23/18 08:45 Dose: Not Given Ondansetron HCl (Zofran Odt) 4 mg PO Q6H PRN PRN Reason: nausea, able to take PO Oxycodone HCl (Oxycodone) 5 mg PO Q4H PRN PRN Reason: Pain (moderate 4-6) Last Admin: 12/23/18 21:58 Dose: 5 mg Temazepam (Restoril) 15 mg PO BEDTIME PRN PRN Reason: Sleep Discontinued Medications Atropine Sulfate (Atropine 0.1 Mg/Ml) 0.5 mg IVPUSH ASDIRECTED PRN PRN Reason: Hypo-perfusion Atropine Sulfate (Atropine 0.1 Mg/Ml) 1 mg IVPUSH ASDIRECTED PRN PRN Reason: Hypo-Perfusion Bupivacaine HCl (Sensorcaine-Mpf 0.5%) Confirm Administered Dose 10 ml .ROUTE .STK-MED ONE Stop: 12/22/18 11:12 Bupivacaine HCl (Marcaine 0.5%) Confirm Administered Dose 30 ml .ROUTE .STK-MED ONE Stop: 12/22/18 11:57 Dextrose/Water (Dextrose 50% In Water) 50 ml IVPUSH ASDIRECTED PRN PRN Reason: Hypoglycemia Docusate Sodium (Colace) 100 mg PO BID PRN PRN Reason: Constipation Enoxaparin Sodium (Lovenox) 40 mg SUBCUT Q24H [facility] Last Admin: 12/19/18 18:42 Dose: Not Given Enoxaparin Sodium (Lovenox) 40 mg SUBCUT Q24H [facility] Last Admin: 12/21/18 18:33 Dose: 40 mg Epinephrine HCl (Epinephrine 1:10,000) 1 mg IVPUSH ASDIRECTED PRN PRN Reason: ACLS Guidelines Fentanyl (Sublimaze) Confirm Administered Dose 100 mcg .ROUTE .STK-MED ONE Stop: 12/22/18 09:57 Fentanyl (Sublimaze) 50 - 100 mcg IVPUSH Q5M PRN PRN Reason: Pain Sodium Chloride (Normal Saline) 1,000 mls @ 999 mls/hr IV STAT ONE Stop: 12/19/18 16:01 Last Admin: 12/19/18 15:21 Dose: 999 mls/hr Vancomycin HCl 1 gm/ Sodium (Chloride) 250 mls @ 250 mls/hr IV ONETIME ONE Stop: 12/19/18 16:18 Last Admin: 12/19/18 15:44 Dose: 250 mls/hr Clindamycin Phosphate 300 mg/ (Premix) 50 mls @ 100 mls/hr IV Q8H [facility] Last Admin: 12/20/18 08:09 Dose: 100 mls/hr Sodium Chloride (Normal Saline) 1,000 mls @ 100 mls/hr IV ASDIRECTED [facility] Last Admin: 12/20/18 03:51 Dose: 100 mls/hr Piperacillin Sod/Tazobactam (Sod 3.375 gm/ Sodium Chloride) 50 mls @ 100 mls/ hr IV Q6H [facility] Last Admin: 12/23/18 08:45 Dose: 100 mls/hr Sodium Chloride (Normal Saline) 1,000 mls @ 999 mls/hr IV .Bolus ONE Stop: 12/20/18 09:45 Last Admin: 12/20/18 09:53 Dose: 999 mls/hr Sodium Chloride (Normal Saline) 1,000 mls @ 150 mls/hr IV ASDIRECTED [facility] Last Admin: 12/22/18 01:51 Dose: 150 mls/hr Vancomycin HCl 1.5 gm/ Sodium (Chloride) 500 mls @ 250 mls/hr IV Q8H [facility] Last Admin: 12/23/18 02:13 Dose: 250 mls/hr Iopamidol (Isovue Multipack-370 (76%)) 90 ml IVPUSH ONETIME STA Stop: 12/20/18 10:45 Last Admin: 12/20/18 10:46 Dose: 90 ml Ketamine HCl (Ketalar) Confirm Administered Dose 500 mg .ROUTE .STK-MED ONE Stop: 12/22/18 11:57 Ketorolac Tromethamine (Toradol) 30 mg IVPUSH ONETIME ONE Stop: 12/19/18 15:02 Last Admin: 12/19/18 15:21 Dose: 30 mg Lidocaine (Xylocaine-Mpf 2%) Confirm Administered Dose 5 ml .ROUTE .STK-MED ONE Stop: 12/22/18 09:57 Lidocaine/Epinephrine (Xylocaine 1% With Epinephrine 1:100,000) Confirm Administered Dose 20 ml .ROUTE .STK-MED ONE Stop: 12/22/18 10:35 Midazolam HCl (Versed 1 Mg/Ml) Confirm Administered Dose 2 mg .ROUTE .STK-MED ONE Stop: 12/22/18 09:57 Morphine Sulfate (Morphine) 2 mg IVPUSH ONETIME ONE Stop: 12/19/18 16:10 Last Admin: 12/19/18 16:15 Dose: 2 mg Naloxone HCl (Narcan) 0.1 mg IVPUSH ASDIRECTED PRN PRN Reason: Respiratory Depression Ondansetron HCl (Zofran) Confirm Administered Dose 4 mg .ROUTE .STK-MED ONE Stop: 12/22/18 09:57 Propofol (Diprivan 20 Ml) Confirm Administered Dose 200 mg .ROUTE .STK-MED ONE Stop: 12/22/18 09:57 Propofol (Diprivan 20 Ml) Confirm Administered Dose 200 mg .ROUTE .STK-MED ONE Stop: 12/22/18 11:55 Vancomycin HCl (Pharmacy To Dose - Vancomycin) 1 dose .XX ASDIRECTED JON - Exam General: Alert, Oriented, Cooperative Lungs: Clear to Auscultation, Normal Respiratory Effort Cardiovascular: Regular Rate, Regular Rhythm GI/Abdominal Exam: Normal Bowel Sounds, Soft, Non-Tender, Other (obese abdomen) Back Exam: Normal Inspection, Full Range of Motion Extremities: Normal Inspection, Normal Range of Motion, Non-Tender, No Pedal Edema Skin: Rash (L dorsal thigh, red, slightly raised. Has been laying on this leg due ot pain on R. appears to be heat rash. Encouraged to reposition. ambulate often) Wound/Incisions: Erythema Improving (R gluteal region. Dressing appears to have drainage. Nursing to change today.) Neurological: No New Focal Deficit Psy/Mental Status: Alert, Normal Affect, Normal Mood - Problem List & Annotations (1) Cellulitis of buttock, right SNOMED Code(s): 44881875 Code(s): L03.317 - CELLULITIS OF BUTTOCK Status: Acute Priority: High Current Visit: Yes (2) Leukocytosis SNOMED Code(s): 805248900, 490633550 Code(s): D72.829 - ELEVATED WHITE BLOOD CELL COUNT, UNSPECIFIED Status: Acute Priority: High Current Visit: Yes Qualifiers: Leukocytosis type: unspecified Qualified Code(s): D72.829 - Elevated white blood cell count, unspecified (3) Bacterial vaginosis SNOMED Code(s): 387081125 Code(s): N76.0 - ACUTE VAGINITIS; B96.89 - OTH BACTERIAL AGENTS THE CAUSE OF DISEASES CLASSD [id number] Status: Acute Current Visit: Yes (4) History of MRSA infection SNOMED Code(s): 012533785, 868493628 Code(s): Z86.14 - PERSONAL HISTORY OF METHICILLIN RESIS STAPH INFECTION Status: Chronic Priority: High Current Visit: Yes (5) Morbid obesity with BMI of 40.0-44.9, adult SNOMED Code(s): 347218134, 31077883512563 Code(s): E66.01 - MORBID (SEVERE) OBESITY DUE TO EXCESS CALORIES; Z68.41 - BODY MASS INDEX (BMI) 40.0-44.9, ADULT Status: Chronic Priority: High Current Visit: Yes (6) Tobacco abuse SNOMED Code(s): 330375757 Code(s): Z72.0 - TOBACCO USE Status: Chronic Priority: Medium Current Visit: Yes - Problem List Review Problem List Initiated/Reviewed/Updated: Yes - My Orders Last 24 Hours: My Active Orders 12/23/18 17:00 Clindamycin Phosphate in D5W [Cleocin in D5W] 600 mg Premix Bag 50 bag IV Q8H 12/24/18 08:15 Sodium Chloride 0.9% [Normal Saline] 1,000 ml IV ASDIRECTED 12/25/18 05:11 BMP [BASIC METABOLIC PANEL,BMP] [CHEM] AM CBC WITH AUTO DIFF [HEME] AM - Plan Plan:: This 33 year old female admitted with R gluteal cellulitis 1. R gluteal cellulitis and abscess: Wound culture returns MRSA. [place] in place until week when appointment with Dr Riggs Continue Clindamycin. BC negative Continue Oxycodone and Morphine for pain control. VS stable. 2. Elevated Cr: 1.7 today. Add IVFs today Monitor BMP in am. 3. Bacterial vaginosis: Clindamycin will cover. Stop flagyl. VTE Prophylaxis: Lovenox Dispo: 1-2 days pending improvement.
[2018-12-24] MEDS: Nicotine 14 MG/24 Hr Patch TRDERM SCH (08:45)
[2018-12-24] MEDS: Sodium Chloride 0.9% 1,000 ML IV SCH ×2 (08:45→20:04)
[2018-12-24] MEDS: Docusate Sodium 100 MG Cap PO SCH ×2 (08:55→20:05)
[2018-12-24] MEDS: metroNIDAZOLE 250 MG Tab PO SCH (08:55)
[2018-12-24] MEDS: oxyCODONE 5 MG Tab PO PRN ×2 (09:25→20:05)
[2018-12-24] MEDS: Enoxaparin 40 MG/0.4 ML Syringe SUBCUT SCH (12:53)
[2018-12-24] MEDS: Morphine 2 MG/ML Syringe IVPUSH PRN ×2 (13:40→22:34)
[2018-12-25] MEDS: Clindamycin Phosphate in D5W 600 MG in Premix Bag 50 BAG IV SCH ×4 (01:22→09:00)
[2018-12-25] MEDS: Sodium Chloride 0.9% 1,000 ML IV SCH (06:43)
[2018-12-25] MEDS: Nicotine 14 MG/24 Hr Patch TRDERM SCH (09:00)
[2018-12-25] MEDS: oxyCODONE 5 MG Tab PO PRN (09:05)
[2018-12-25] MEDS: Docusate Sodium 100 MG Cap PO SCH (09:07)
[2018-12-25 09:35] VITALS: BP 144/88
[2018-12-25] MEDS: Morphine 2 MG/ML Syringe IVPUSH PRN (11:25)
[2018-12-25] MEDS: Enoxaparin 40 MG/0.4 ML Syringe SUBCUT SCH (11:37)
--- NOTE | 2018-12-25 15:25 | PCM.DCSUM1 ---
Discharge Summary - Discharge Data Discharge Date: 12/25/18 Discharge Disposition: Home, Self-Care 01 Condition: Good - Patient Summary/Data Operative Procedure(s) Performed: Incision and drainage right buttock abscesses Consults: Consultations 12/20/18 08:54 Consult to Physician [CONS] Routine Hospital Course: 33 yo female admitted with right buttock cellulitis and abscess. She presented with right buttock pain and rash. Her WBC on admission was 16,900. CT scan of pelvis did not show abscess but during her admission it did become evident abscess were forming. Dr. Riggs was consulted and performed I&D of three abscess with the largest being 10 by 7 cm. A pinrose drain was placed. She was treated with broad spectrum antibiotics. Her creatinine did increase to 1.7. She was given addition IV fluids and the creatinine remains stable at 1.6. Her broad spectrum antibiotics were discontinued and she was placed on clindamycin. Her wound cultures grew out MRSA. She is requesting discharge home today. She is to follow up with Dr. Riggs next week. - Patient Instructions Diet: Usual Diet as Tolerated Activity: As Tolerated Other/Special Instructions: daily wet to dry dressing changes - Discharge Plan Prescriptions/Med Rec: Clindamycin HCl 300 mg PO QID #30 capsule Home Medications: Home Meds Clindamycin HCl 300 mg PO QID #30 capsule 12/25/18 [Rx] Patient Handouts: Clindamycin capsules, Cellulitis, Adult, [id number], Incision and Drainage, Care After, Incision Care, Adult, [id number], Percutaneous Abscess Drain, Care After Referrals: Lena Riggs MD [Physician] - 12/29/18 2:00 pm Jeanna Wilson NP [Ordering Only Provider] - 01/04/19 10:00 am - Discharge Summary/Plan Comment DC Time >30 min.: No - Patient Data Vitals - Most Recent: Last Vital Signs Temp 37.3 C 12/25/18 09:00 Pulse 58 L 12/25/18 09:00 Resp 16 12/25/18 09:00 BP 144/88 H 12/25/18 09:00 Pulse Ox 94 L 12/25/18 09:00 Weight - Most Recent: 110.818 kg I&O - Last 24 hours: Intake & Output 12/25/18 12/25/18 12/25/18 06:59 14:59 22:59 Intake Total 2592 50 Output Total 900 Balance 1692 50 Lab Results - Last 24 hrs: Laboratory Results - last 24 hr 12/25/18 12/25/18 Range/Units 06:03 06:03 WBC 9.15 (4.0-11.0) K/uL RBC 3.41 L (4.30-5.90) M/uL Hgb 9.8 L (12.0-16.0) g/dL Hct 30.8 L (36.0-46.0) % MCV 90.3 (80.0-98.0) fL MCH 28.7 (27.0-32.0) pg MCHC 31.8 (31.0-37.0) g/dL RDW Std Deviation 48.5 (28.0-62.0) fl RDW Coeff of Rachelle 15 (11.0-15.0) % Plt Count 298 (150-400) K/uL MPV 8.80 (7.40-12.00) fL Neut % (Auto) 74.0 (48.0-80.0) % Lymph % (Auto) 14.0 L (16.0-40.0) % [place] % (Auto) 10.3 (0.0-15.0) % Eos % (Auto) 1.6 (0.0-7.0) % Baso % (Auto) 0.1 (0.0-1.5) % Neut # (Auto) 6.8 H (1.4-5.7) K/uL Lymph # (Auto) 1.3 (0.6-2.4) K/uL [place] # (Auto) 0.9 H (0.0-0.8) K/uL Eos # (Auto) 0.2 (0.0-0.7) K/uL Baso # (Auto) 0.0 (0.0-0.1) K/uL Nucleated RBC % 0.0 /100WBC Nucleated RBCs # 0 K/uL Sodium 144 (136-145) mmol/L Potassium 3.5 (3.5-5.1) mmol/L Chloride 110 H (98-107) mmol/L Carbon Dioxide 25.0 (21.0-32.0) mmol/L BUN 9 (7.0-18.0) mg/dL Creatinine 1.6 H (0.6-1.0) mg/dL Est Cr Clr Drug Dosing 44.58 mL/min Estimated GFR (MDRD) 36.9 ml/min Glucose 116 H (74-106) mg/dL Calcium 7.8 L (8.5-10.1) mg/dL REI Results - Last 24 hrs: Microbiology 12/19/18 15:28 Aerobic Blood Culture - Final Blood - Venous - Lab Draw NO GROWTH AFTER 5 DAYS Anaerobic Blood Culture - Final NO GROWTH AFTER 5 DAYS 12/19/18 15:28 Aerobic Blood Culture - Final Blood - Venous NO GROWTH AFTER 5 DAYS Anaerobic Blood Culture - Final NO GROWTH AFTER 5 DAYS 12/22/18 11:40 Wound Culture - Final Buttock, Right (Mrsa) Staphylococcus Aureus Anaerobic Culture - Final NO ANAEROBES ISOLATED Med Orders - Current: Current Medications Acetaminophen (Tylenol) 650 mg PO Q4H PRN PRN Reason: Pain (Mild 1-3)/fever Last Admin: 12/22/18 21:41 Dose: 650 mg Docusate Sodium (Colace) 100 mg PO BID [facility] Last Admin: 12/25/18 09:07 Dose: 100 mg Enoxaparin Sodium (Lovenox) 40 mg SUBCUT Q24H [facility] Last Admin: 12/25/18 11:37 Dose: 40 mg Clindamycin Phosphate 600 mg/ (Premix) 50 mls @ 100 mls/hr IV Q8H [facility] Last Admin: 12/25/18 09:00 Dose: 100 mls/hr Sodium Chloride (Normal Saline) 1,000 mls @ 100 mls/hr IV ASDIRECTED [facility] Last Admin: 12/25/18 06:43 Dose: 100 mls/hr Morphine Sulfate (Morphine) 2 mg IVPUSH Q3H PRN PRN Reason: severe Pain Last Admin: 12/25/18 11:25 Dose: 2 mg Nicotine (Habitrol) 14 mg TRDERM DAILY [facility] Last Admin: 12/25/18 09:00 Dose: Not Given Ondansetron HCl (Zofran Odt) 4 mg PO Q6H PRN PRN Reason: nausea, able to take PO Last Admin: 12/24/18 22:35 Dose: 4 mg Oxycodone HCl (Oxycodone) 5 mg PO Q4H PRN PRN Reason: Pain (moderate 4-6) Last Admin: 12/25/18 09:05 Dose: 5 mg Temazepam (Restoril) 15 mg PO BEDTIME PRN PRN Reason: Sleep Discontinued Medications Atropine Sulfate (Atropine 0.1 Mg/Ml) 0.5 mg IVPUSH ASDIRECTED PRN PRN Reason: Hypo-perfusion Atropine Sulfate (Atropine 0.1 Mg/Ml) 1 mg IVPUSH ASDIRECTED PRN PRN Reason: Hypo-Perfusion Bupivacaine HCl (Sensorcaine-Mpf 0.5%) Confirm Administered Dose 10 ml .ROUTE .STK-MED ONE Stop: 12/22/18 11:12 Bupivacaine HCl (Marcaine 0.5%) Confirm Administered Dose 30 ml .ROUTE .STK-MED ONE Stop: 12/22/18 11:57 Dextrose/Water (Dextrose 50% In Water) 50 ml IVPUSH ASDIRECTED PRN PRN Reason: Hypoglycemia Docusate Sodium (Colace) 100 mg PO BID PRN PRN Reason: Constipation Enoxaparin Sodium (Lovenox) 40 mg SUBCUT Q24H [facility] Last Admin: 12/19/18 18:42 Dose: Not Given Enoxaparin Sodium (Lovenox) 40 mg SUBCUT Q24H [facility] Last Admin: 12/21/18 18:33 Dose: 40 mg Epinephrine HCl (Epinephrine 1:10,000) 1 mg IVPUSH ASDIRECTED PRN PRN Reason: ACLS Guidelines Fentanyl (Sublimaze) Confirm Administered Dose 100 mcg .ROUTE .STK-MED ONE Stop: 12/22/18 09:57 Fentanyl (Sublimaze) 50 - 100 mcg IVPUSH Q5M PRN PRN Reason: Pain Sodium Chloride (Normal Saline) 1,000 mls @ 999 mls/hr IV STAT ONE Stop: 12/19/18 16:01 Last Admin: 12/19/18 15:21 Dose: 999 mls/hr Vancomycin HCl 1 gm/ Sodium (Chloride) 250 mls @ 250 mls/hr IV ONETIME ONE Stop: 12/19/18 16:18 Last Admin: 12/19/18 15:44 Dose: 250 mls/hr Clindamycin Phosphate 300 mg/ (Premix) 50 mls @ 100 mls/hr IV Q8H [facility] Last Admin: 12/20/18 08:09 Dose: 100 mls/hr Sodium Chloride (Normal Saline) 1,000 mls @ 100 mls/hr IV ASDIRECTED [facility] Last Admin: 12/20/18 03:51 Dose: 100 mls/hr Piperacillin Sod/Tazobactam (Sod 3.375 gm/ Sodium Chloride) 50 mls @ 100 mls/ hr IV Q6H [facility] Last Admin: 12/23/18 08:45 Dose: 100 mls/hr Sodium Chloride (Normal Saline) 1,000 mls @ 999 mls/hr IV .Bolus ONE Stop: 12/20/18 09:45 Last Admin: 12/20/18 09:53 Dose: 999 mls/hr Sodium Chloride (Normal Saline) 1,000 mls @ 150 mls/hr IV ASDIRECTED [facility] Last Admin: 12/22/18 01:51 Dose: 150 mls/hr Vancomycin HCl 1.5 gm/ Sodium (Chloride) 500 mls @ 250 mls/hr IV Q8H [facility] Last Admin: 12/23/18 02:13 Dose: 250 mls/hr Iopamidol (Isovue Multipack-370 (76%)) 90 ml IVPUSH ONETIME STA Stop: 12/20/18 10:45 Last Admin: 12/20/18 10:46 Dose: 90 ml Ketamine HCl (Ketalar) Confirm Administered Dose 500 mg .ROUTE .STK-MED ONE Stop: 12/22/18 11:57 Ketorolac Tromethamine (Toradol) 30 mg IVPUSH ONETIME ONE Stop: 12/19/18 15:02 Last Admin: 12/19/18 15:21 Dose: 30 mg Lidocaine (Xylocaine-Mpf 2%) Confirm Administered Dose 5 ml .ROUTE .STK-MED ONE Stop: 12/22/18 09:57 Lidocaine/Epinephrine (Xylocaine 1% With Epinephrine 1:100,000) Confirm Administered Dose 20 ml .ROUTE .STK-MED ONE Stop: 12/22/18 10:35 Metronidazole (Metronidazole) 500 mg PO Q12HR [facility] Last Admin: 12/24/18 08:55 Dose: 500 mg Midazolam HCl (Versed 1 Mg/Ml) Confirm Administered Dose 2 mg .ROUTE .STK-MED ONE Stop: 12/22/18 09:57 Morphine Sulfate (Morphine) 2 mg IVPUSH ONETIME ONE Stop: 12/19/18 16:10 Last Admin: 12/19/18 16:15 Dose: 2 mg Naloxone HCl (Narcan) 0.1 mg IVPUSH ASDIRECTED PRN PRN Reason: Respiratory Depression Ondansetron HCl (Zofran) Confirm Administered Dose 4 mg .ROUTE .STK-MED ONE Stop: 12/22/18 09:57 Propofol (Diprivan 20 Ml) Confirm Administered Dose 200 mg .ROUTE .STK-MED ONE Stop: 12/22/18 09:57 Propofol (Diprivan 20 Ml) Confirm Administered Dose 200 mg .ROUTE .STK-MED ONE Stop: 12/22/18 11:55 Vancomycin HCl (Pharmacy To Dose - Vancomycin) 1 dose .XX ASDIRECTED JON
== END 2018-12-25 15:50 | disposition home or self-care (01) | DRG 603 ==
LOC: MW.ED 14:33 → MW.MS 16:21 → OBSVTOIN 12-22 08:48 → MW.MS 12-22 14:07
PROVIDERS: ADMIT Internal Medicine; ATTEND Internal Medicine
PROC: 0Y9000Z Drainage of Right Buttock with Drainage Device, Open Approach (ICD-10-PCS; principal; 2018-12-22)
DX: L03.317 Cellulitis of buttock (principal); L73.2 Hidradenitis suppurativa; B95.62 Methicillin resistant Staphylococcus aureus infection as the cause of diseases classified elsewhere; E66.01 Morbid (severe) obesity due to excess calories; Z68.41 Body mass index [BMI] 40.0-44.9, adult; Z86.14 Personal history of Methicillin resistant Staphylococcus aureus infection; F17.200 Nicotine dependence, unspecified, uncomplicated; N76.0 Acute vaginitis; R73.9 Hyperglycemia, unspecified
CPT/HCPCS: 36415 ×4; 72193; 80048 ×2; 80053 ×2; 80202; 81001; 83036; 83605; 84703; 85025 ×4; 87040 ×2; 87070; 87077; 87086; 87186; 96365; 96375; 99284; A4217 ×3; A9270 ×17; J1650 ×3; J1885; J2270 ×3; J2543 ×9; J3370 ×7; J3490 ×3; J7040 ×15; J7050 ×10; Q9967; 87075; 96361; 96366; 96367; 96372; 96376; G0378; J2001; J2250; J2405; J2704; J3010

== ENCOUNTER 2020-03-16 16:03 | Emergency (ER) | payer MEDICAID, OTHER ==
[2020-03-16] MEDS ORDERED: Sodium Chloride 0.9% 1,000 ML IV ONE (16:47)
--- NOTE | 2020-03-16 16:52 | EDM.PDOC ---
ED HPI GENERAL MEDICAL PROBLEM - General Chief Complaint: Abdominal Pain Stated Complaint: PAIN LEFT BACK Time Seen by Provider: 03/16/20 16:17 Source of Information: Reports: Patient History Limitations: Reports: No Limitations - History of Present Illness INITIAL COMMENTS - FREE TEXT/NARRATIVE: HISTORY AND PHYSICAL: History of present illness: Patient is a 34-year-old female who presents to the ED today with concern of left-sided flank pain over the past 1 week. Patient states she is also felt nauseous over the past week and has had a decreased appetite but has not vomit ed. Patient states she is also noticed her urine is darker in color and more cloudy than usual over the course of the past week but denies any pain with urination or urinary frequency. Patient states that approximately 1 year ago she was admitted to the hospital for a skin MRSA infection and after about a week of being in the hospital, was told that her "kidneys were not functioning like they should"and that patient did stay in the hospital longer. Patient states she did not want to stay so she left the hospital anyway. Patient states she has not had any follow-up with her kidneys after discharge from the hospital. Patient states she has had 1-2 episodes of diarrhea today with some lower abdominal discomfort. Patient denies any other symptoms or concerns. Patient denies fever, chills, chest pain, shortness of breath, or cough. Denies headache, neck stiff ness, change in vision, syncope, or near syncope. Denies vomiting, constipation, or dysuria. Has not noted any blood in urine or stool. Patient has been eating and drinking appropriately. Review of systems: As per history of present illness and below otherwise all systems reviewed and negative. Past medical history: As per history of present illness and as reviewed below otherwise noncontributory. Surgical history: As per history of present illness and as reviewed below otherwise noncontributory. Social history: See social history for further information Family history: As per history of present illness and as reviewed below otherwise noncontributory. Physical exam: General: Patient is alert, oriented, and in no acute distress. Patient sitting comfortably on exam table. HEENT: Atraumatic, normocephalic, pupils equal and reactive bilaterally, negative for conjunctival pallor or scleral icterus, mucous membranes moist, TMs normal bilaterally, throat clear, neck supple, nontender, trachea midline. No drooling or trismus noted. No meningeal signs. No hot potato voice noted. Lungs: Clear to auscultation, breath sounds equal bilaterally, chest nontender. Heart: S1S2, regular rate and rhythm without overt murmur Abdomen: Exam of abdomen limited due to body habitus. Soft, nondistended, mild tenderness to palpation of the RLQ without guarding or rebound. Negative for masses or hepatosplenomegaly. Negative for costovertebral tenderness. Pelvis: Stable nontender. Genitourinary: Deferred. Rectal: Deferred. Skin: Intact, warm, dry. No lesions or rashes noted. Extremities: Atraumatic, negative for cords or calf pain. Neurovascular unremarkable. Neuro: Awake, alert, oriented. Cranial nerves II through XII unremarkable. Cerebellum unremarkable. Motor and sensory unremarkable throughout. Exam nonfocal. Notes: Discussed importance for follow-up with a primary care provider. Voices understanding and is agreeable to plan of care. Denies any further questions or concerns at this time. Diagnostics: CBC, CMP, UA w culture, serum hcg, lipase, abd/pelvic ct w cont Therapeutics: NS Prescription: Macrobid Impression: Urinary tract infection Plan: 1. Take medication as prescribed. You can alternate ibuprofen and tylenol as directed for pain and discomfort. 2. Follow-up with your primary care provider as discussed. Return to the ED as needed and as discussed. Definitive disposition and diagnosis as appropriate pending reevaluation and review of above. Left flank/abdomen Pain Score (Numeric/FACES): 6 - Related Data Allergies Allergy/AdvReac Type Severity Reaction Status Date / Time Sulfa (Sulfonamide Allergy Hives Verified 03/16/20 16:41 Antibiotics) Home Meds: Home Meds Ziprasidone HCl [Geodon] 40 mg PO BID 03/16/20 [History] busPIRone [Buspar] 7.5 mg PO BEDTIME 03/16/20 [History] busPIRone [Buspar] 15 mg PO ACBREAKFAST 03/16/20 [History] Past Medical History HEENT History: Reports: None Cardiovascular History: Reports: None Respiratory History: Reports: None Gastrointestinal History: Reports: None Genitourinary History: Reports: None [employer] History: Reports: Neurological History: Reports: None Psychiatric History: Reports: None Endocrine/Metabolic History: Reports: None Hematologic History: Reports: None Oncologic (Cancer) History: Reports: None Dermatologic History: Reports: Chronic Cellulitis, Other (See Below) - Infectious Disease History Infectious Disease History: Reports: Chicken Pox, MRSA - Past Surgical History Female Surgical History: Reports: None Other Musculoskeletal Surgeries/Procedures:: multiple left knee surgeries per pt Social & Family History - Family History Family Medical History: Noncontributory - Tobacco Use Smoking Status *Q: Never Smoker - Caffeine Use Caffeine Use: Reports: Soda - Recreational Drug Use Recreational Drug Use: No - Living Situation & Occupation Living situation: Reports: Single, with Family Occupation: Unemployed ED ROS GENERAL - Review of Systems Review Of Systems: Comprehensive ROS is negative, except as noted in HPI. ED EXAM, GENERAL - Physical Exam Exam: See Below (see dictation) Course - Vital Signs Last Recorded V/S: Last Vital Signs Temp 98.6 F 03/16/20 16:42 Pulse 99 03/16/20 16:42 Resp 16 03/16/20 16:42 BP 138/96 H 03/16/20 16:42 Pulse Ox 96 03/16/20 16:42 - Orders/Labs/Meds Orders: Active Orders 24 hr Category Date Time Status CULTURE URINE [RM] Stat Lab 03/16/20 16:20 Received Labs: Laboratory Tests 03/16/20 03/16/20 03/16/20 Range/Units 16:20 17:12 17:12 WBC 7.27 (4.0-11.0) K/uL RBC 4.29 L (4.30-5.90) M/uL Hgb 12.6 (12.0-16.0) g/dL Hct 39.1 (36.0-46.0) % MCV 91.1 (80.0-98.0) fL MCH 29.4 (27.0-32.0) pg MCHC 32.2 (31.0-37.0) g/dL RDW Std Deviation 44.8 (28.0-62.0) fl RDW Coeff of Rachelle 14 (11.0-15.0) % Plt Count 246 (150-400) K/uL MPV 9.60 (7.40-12.00) fL Neut % (Auto) 72.2 (48.0-80.0) % Lymph % (Auto) 17.1 (16.0-40.0) % [place] % (Auto) 9.1 (0.0-15.0) % Eos % (Auto) 1.5 (0.0-7.0) % Baso % (Auto) 0.1 (0.0-1.5) % Neut # (Auto) 5.3 (1.4-5.7) K/uL Lymph # (Auto) 1.2 (0.6-2.4) K/uL [place] # (Auto) 0.7 (0.0-0.8) K/uL Eos # (Auto) 0.1 (0.0-0.7) K/uL Baso # (Auto) 0.0 (0.0-0.1) K/uL Nucleated RBC % 0.0 /100WBC Nucleated RBCs # 0 K/uL Sodium 136 (136-145) mmol/L Potassium 3.4 L (3.5-5.1) mmol/L Chloride 103 (98-107) mmol/L Carbon Dioxide 22.9 (21.0-32.0) mmol/L BUN 8 (7.0-18.0) mg/dL Creatinine 0.9 (0.6-1.0) mg/dL Est Cr Clr Drug Dosing 78.51 mL/min Estimated GFR (MDRD) > 60.0 ml/min Glucose 112 H (74-106) mg/dL Calcium 7.8 L (8.5-10.1) mg/dL Total Bilirubin 0.3 (0.2-1.0) mg/dL AST 19 (15-37) IU/L ALT 26 (14-63) IU/L Alkaline Phosphatase 78 (46-116) U/L Total Protein 7.6 (6.4-8.2) g/dL Albumin 3.2 L (3.4-5.0) g/dL Globulin 4.4 H (2.6-4.0) g/dL Albumin/Globulin Ratio 0.7 L (0.9-1.6) Lipase 80 (73-393) U/L HCG, Qual (NEG) Urine Color YELLOW Urine Appearance CLEAR Urine pH 6.5 (5.0-8.0) Ur Specific [place] <= 1.005 (1.001-1.035) Urine Protein NEGATIVE (NEGATIVE) mg/dL Urine Glucose (UA) NEGATIVE (NEGATIVE) mg/dL Urine Ketones NEGATIVE (NEGATIVE) mg/dL Urine Occult Blood MODERATE H (NEGATIVE) Urine Nitrite NEGATIVE (NEGATIVE) Urine Bilirubin NEGATIVE (NEGATIVE) Urine Urobilinogen 0.2 (<2.0) EU/dL Ur Leukocyte Esterase TRACE H (NEGATIVE) Urine RBC 0-2 (0-2/HPF) Urine WBC 1-3 (0-5/HPF) Ur Epithelial Cells FEW (NONE-FEW) Urine Bacteria FEW (NEGATIVE) 03/16/20 Range/Units 17:12 WBC (4.0-11.0) K/uL RBC (4.30-5.90) M/uL Hgb (12.0-16.0) g/dL Hct (36.0-46.0) % MCV (80.0-98.0) fL MCH (27.0-32.0) pg MCHC (31.0-37.0) g/dL RDW Std Deviation (28.0-62.0) fl RDW Coeff of Rachelle (11.0-15.0) % Plt Count (150-400) K/uL MPV (7.40-12.00) fL Neut % (Auto) (48.0-80.0) % Lymph % (Auto) (16.0-40.0) % [place] % (Auto) (0.0-15.0) % Eos % (Auto) (0.0-7.0) % Baso % (Auto) (0.0-1.5) % Neut # (Auto) (1.4-5.7) K/uL Lymph # (Auto) (0.6-2.4) K/uL [place] # (Auto) (0.0-0.8) K/uL Eos # (Auto) (0.0-0.7) K/uL Baso # (Auto) (0.0-0.1) K/uL Nucleated RBC % /100WBC Nucleated RBCs # K/uL Sodium (136-145) mmol/L Potassium (3.5-5.1) mmol/L Chloride (98-107) mmol/L Carbon Dioxide (21.0-32.0) mmol/L BUN (7.0-18.0) mg/dL Creatinine (0.6-1.0) mg/dL Est Cr Clr Drug Dosing mL/min Estimated GFR (MDRD) ml/min Glucose (74-106) mg/dL Calcium (8.5-10.1) mg/dL Total Bilirubin (0.2-1.0) mg/dL AST (15-37) IU/L ALT (14-63) IU/L Alkaline Phosphatase (46-116) U/L Total Protein (6.4-8.2) g/dL Albumin (3.4-5.0) g/dL Globulin (2.6-4.0) g/dL Albumin/Globulin Ratio (0.9-1.6) Lipase (73-393) U/L HCG, Qual NEGATIVE (NEG) Urine Color Urine Appearance Urine pH (5.0-8.0) Ur Specific [place] (1.001-1.035) Urine Protein (NEGATIVE) mg/dL Urine Glucose (UA) (NEGATIVE) mg/dL Urine Ketones (NEGATIVE) mg/dL Urine Occult Blood (NEGATIVE) Urine Nitrite (NEGATIVE) Urine Bilirubin (NEGATIVE) Urine Urobilinogen (<2.0) EU/dL Ur Leukocyte Esterase (NEGATIVE) Urine RBC (0-2/HPF) Urine WBC (0-5/HPF) Ur Epithelial Cells (NONE-FEW) Urine Bacteria (NEGATIVE) Meds: Medications Discontinued Medications Generic Name Dose Route Start Last Admin Trade Name Meetq PRN Reason Stop Dose Admin Sodium Chloride 1,000 mls @ 999 mls/hr 03/16/20 16:47 03/16/20 17:05 Normal Saline IV 03/16/20 17:47 999 mls/hr BOLUS ONE Administration Iopamidol 100 ml 03/16/20 18:39 03/16/20 18:40 Isovue Multipack-370 (76%) IVPUSH 03/16/20 18:40 100 ml ONETIME STA Administration Departure - Departure Time of Disposition: 19:34 Disposition: Home, Self-Care 01 Clinical Impression: Urinary tract infection Qualifiers: Urinary tract infection type: acute cystitis Hematuria presence: without hematuria Qualified Code(s): N30.00 - Acute cystitis without hematuria - Discharge Information Referrals: Jeanna Lynn MILEAGE CLERK [Primary Care Provider] - Forms: ED Department Discharge Additional Instructions: The following information is given to patients seen in the emergency department who are being discharged to home. This information is to outline your options for follow-up care. We provide all patients seen in our emergency department with a follow-up referral. The need for follow-up, as well as the timing and circumstances, are variable depending upon the specifics of your emergency department visit. If you don't have a primary care physician on staff, we will provide you with a referral. We always advise you to contact your personal physician following an emergency department visit to inform them of the circumstance of the visit and for follow-up with them and/or the need for any referrals to a consulting specialist. The emergency department will also refer you to a specialist when appropriate. This referral assures that you have the opportunity for follow-up care with a specialist. All of these measure are taken in an effort to provide you with optimal care, which includes your follow-up. Under all circumstances we always encourage you to contact your private physician who remains a resource for coordinating your care. When calling for follow-up care, please make the office aware that this follow-up is from your recent emergency room visit. If for any reason you are refused follow-up, please contact the [facility] Emergency Department at and asked to speak to the emergency department charge nurse. [facility] [address] [place] [address] [id number] 1. Take medication as prescribed. You can alternate ibuprofen and tylenol as directed for pain and discomfort. 2. Follow-up with your primary care provider as discussed. Return to the ED as needed and as discussed. Sepsis Event Note (ED) - Evaluation Sepsis Screening Result: No Definite Risk - Focused Exam Vital Signs: Vital Signs Temp Pulse Resp BP Pulse Ox 03/16/20 16:42 98.6 F 99 16 138/96 H 96 - My Orders Last 24 Hours: My Active Orders 03/16/20 16:20 CULTURE URINE [RM] Stat - Assessment/Plan Last 24 Hours: My Active Orders 03/16/20 16:20 CULTURE URINE [RM] Stat
[2020-03-16 17:42] LABS: BLOOD UREA NITROGEN,BUN 8 mg/dL (7.0-18.0); CARBON DIOXIDE,CO2 22.9 mmol/L (21.0-32.0); CHLORIDE,CL 103 mmol/L (98-107); GLUCOSE RANDOM 112 mg/dL (74-106); LIPASE 80 U/L (73-393); POTASSIUM,K 3.4 mmol/L (3.5-5.1); SODIUM,NA 136 mmol/L (136-145)
[2020-03-16] MEDS ORDERED: Iopamidol 755 MG/ML 500 ML Multipack Bottle IVPUSH STA (18:39)
--- NOTE | 2020-03-16 18:55 | CT ---
INDICATION: Left flank and right lower quadrant pain TECHNIQUE: CT abdomen and pelvis acquired with 100 cc Isovue 370 IV contrast. COMPARISON: None FINDINGS: Lower chest: Unremarkable. Liver: Unremarkable. Spleen: Unremarkable. Pancreas: Unremarkable. Gallbladder and bile ducts: Unremarkable. Adrenal glands: Unremarkable. Kidneys: Unremarkable. GI tract: Unremarkable. Appendix is normal. Vascular structures: Unremarkable. Lymph nodes: Unremarkable. Miscellaneous: Unremarkable. No free air or significant free fluid. Pelvic Organs: Unremarkable. Bones: Unremarkable for age. IMPRESSION: Unremarkable CT of the abdomen and pelvis. Please note that all CT scans at this facility use dose modulation, iterative reconstruction, and/or weight-based dosing when appropriate to reduce radiation dose to as low as reasonably achievable. Dictated by Linda Arreola MD @ Mar 16 2020 6:53PM Signed by Dr. Linda Arreola @ Mar 16 2020 6:53PM
[2020-03-16 20:49] VITALS: BP 119/73; PULSE 75
== END 2020-03-16 19:45 | disposition home or self-care (01) ==
LOC: MW.ED 16:03
DX: N30.00 Acute cystitis without hematuria (principal); Z88.2 Allergy status to sulfonamides; Z79.899 Other long term (current) drug therapy
CPT/HCPCS: 36415; 74177; 80053; 81001; 81003; 83690; 84703; 85025; 87086; 96360; 96361; 99284; J7030; Q9967

== ENCOUNTER 2020-03-21 23:08 | Emergency (ER) | payer MEDICAID ==
[2020-03-21] MEDS ORDERED: Phenazopyridine 200 MG Tab PO ONE (23:33)
--- NOTE | 2020-03-21 23:36 | EDM.PDOC ---
ED HPI GENERAL MEDICAL PROBLEM - General Chief Complaint: Genitourinary Problem Stated Complaint: uti symptoms Time Seen by Provider: 03/21/20 23:22 Source of Information: Reports: Patient History Limitations: Reports: No Limitations - History of Present Illness INITIAL COMMENTS - FREE TEXT/NARRATIVE: History of present illness: [Patient is 34-year-old female who was seen here 5 days ago and diagnosed with a UTI and sent home with Macrobid. She states that she finished the Macrobid but she does not feel like her symptoms have significantly improved. She still has dysuria, she states that after she finishes urinating she gets a sharp lower pain that usually last for couple minutes. It typically goes away but throughout the day it may come back. She states that it feels like previous UTIs that she has had. She denies fever, chest pain, shortness of breath, flank pain, chills, or other systemic symptoms. She has not tried any [id number] remedies, no cranberry juice, no Pyridium, no other antispasmodic medications. Denies foul-smelling urine, denies andrews blood in the urine. Review of her work-up 5 days ago does not show convincing evidence for UTI. Kidney function appeared to be normal. And she was not .] Review of systems: As per history of present illness and below otherwise all systems reviewed and negative. Past medical history: As per history of present illness and as reviewed below otherwise noncontributory. Surgical history: As per history of present illness and as reviewed below otherwise noncontributory. Social history: No reported history of drug or alcohol abuse. Family history: As per history of present illness and as reviewed below otherwise noncontributory. Physical exam: General: Awake, alert, no acute distress, A&O X3. HEENT: Atraumatic, normocephalic, pupils reactive, negative for conjunctival pallor or scleral icterus, mucous membranes moist, throat clear, neck supple, nontender, trachea midline. Lungs: Clear to auscultation, breath sounds equal bilaterally, chest nontender. Heart: RRR, normal S1S2, no JVD. Abdomen: Soft, nondistended, nontender. Negative for masses or hepatosplenomegaly. Negative for costovertebral tenderness. Pelvis: Stable nontender. Genitourinary: Deferred. Rectal: Deferred. Extremities: Atraumatic, no edema, Neurovascular unremarkable. Neuro: Motor and sensory grossly intact throughout. Exam nonfocal. Diagnostics: [] Therapeutics: [] Impression: [] Plan: [] Definitive disposition and diagnosis as appropriate pending reevaluation and review of above. - Related Data Allergies Allergy/AdvReac Type Severity Reaction Status Date / Time Sulfa (Sulfonamide Allergy Hives Verified 03/16/20 16:41 Antibiotics) Home Meds: Home Meds Ziprasidone HCl [Geodon] 40 mg PO BID 03/16/20 [History] busPIRone [Buspar] 7.5 mg PO BEDTIME 03/16/20 [History] busPIRone [Buspar] 15 mg PO ACBREAKFAST 03/16/20 [History] Phenazopyridine HCl [Pyridium] 200 mg PO BID #6 tablet 03/22/20 [Rx] Past Medical History HEENT History: Reports: None Cardiovascular History: Reports: None Respiratory History: Reports: None Gastrointestinal History: Reports: None Genitourinary History: Reports: None [employer] History: Reports: Neurological History: Reports: None Psychiatric History: Reports: None Endocrine/Metabolic History: Reports: None Hematologic History: Reports: None Oncologic (Cancer) History: Reports: None Dermatologic History: Reports: Chronic Cellulitis, Other (See Below) Other Dermatologic History: MRSA skin infections - Infectious Disease History Infectious Disease History: Reports: MRSA - Past Surgical History Female Surgical History: Reports: None Other Musculoskeletal Surgeries/Procedures:: multiple left knee surgeries per pt Social & Family History - Family History Family Medical History: Noncontributory - Tobacco Use Smoking Status *Q: Current Every Day Smoker Years of Tobacco use: 20 Packs/Tins Daily: 0.5 - Caffeine Use Caffeine Use: Reports: Soda - Recreational Drug Use Recreational Drug Use: No - Living Situation & Occupation Living situation: Reports: Single, with Family Occupation: Unemployed ED ROS GENERAL - Review of Systems Review Of Systems: Comprehensive ROS is negative, except as noted in HPI. ED EXAM, RENAL/ - Physical Exam Exam: See Below (see h and p) Course - Vital Signs Text/Narrative:: Urinalysis shows no convincing evidence for infection. She has small amount of microscopic blood. She tells me on further questioning that she has seen a urologist and a gasfitter in the past, she states it was probably close to 10 years ago when she had a bladder scope performed, she was having some similar issues at that time. She cannot recall any specific diagnosis or treatment that they did for her at that time. I told her it would be a good idea to follow-up with urology to see if there was an anatomical cause or some other reason for why she was having this discomfort. She understands the plan and is agreeable with it. Does not appear to be any emergent cause to her symptoms at this time. She has benign belly exam, stable vital signs, nontoxic in appearance. Last Recorded V/S: Last Vital Signs Temp 36.8 C 03/21/20 23:25 Pulse 108 H 03/21/20 23:25 Resp 18 03/21/20 23:25 BP 129/79 03/21/20 23:25 Pulse Ox 95 03/21/20 23:25 - Orders/Labs/Meds Labs: Laboratory Tests 03/22/20 Range/Units 00:12 Urine Color YELLOW Urine Appearance CLEAR Urine pH 5.5 (5.0-8.0) Ur Specific [place] >= 1.030 (1.001-1.035) Urine Protein NEGATIVE (NEGATIVE) mg/dL Urine Glucose (UA) NEGATIVE (NEGATIVE) mg/dL Urine Ketones NEGATIVE (NEGATIVE) mg/dL Urine Occult Blood MODERATE H (NEGATIVE) Urine Nitrite NEGATIVE (NEGATIVE) Urine Bilirubin NEGATIVE (NEGATIVE) Urine Urobilinogen 0.2 (<2.0) EU/dL Ur Leukocyte Esterase NEGATIVE (NEGATIVE) Urine RBC 1-3 (0-2/HPF) Urine WBC 0-2 (0-5/HPF) Ur Epithelial Cells MODERATE (NONE-FEW) Urine Bacteria FEW (NEGATIVE) Urine Mucus MODERATE (NONE-MOD) Urinalysis Comment Meds: Medications Discontinued Medications Generic Name Dose Route Start Last Admin Trade Name Freq PRN Reason Stop Dose Admin Phenazopyridine HCl 200 mg 03/21/20 23:33 03/21/20 23:42 Pyridium PO 03/21/20 23:34 200 mg ONETIME ONE Administration Departure - Departure Time of Disposition: 00:40 Disposition: Home, Self-Care 01 Condition: Good Clinical Impression: Dysuria - Discharge Information Prescriptions: Phenazopyridine HCl [Pyridium] 200 mg PO BID #6 tablet Instructions: Urodynamic Testing, [id number] Referrals: Jeanna Lynn NP [Primary Care Provider] - Forms: ED Department Discharge Additional Instructions: Follow-up with primary care doctor and urology. Take all medications as prescribed. Return to the ER with any new or worsening symptoms. [place] [id number] [address] [place] [id number] The following information is given to patients seen in the emergency department who are being discharged to home. This information is to outline your options for follow-up care. We provide all patients seen in our emergency department with a follow-up referral. The need for follow-up, as well as the timing and circumstances, are variable depending upon the specifics of your emergency department visit. If you don't have a primary care physician on staff, we will provide you with a referral. We always advise you to contact your personal physician following an emergency department visit to inform them of the circumstance of the visit and for follow-up with them and/or the need for any referrals to a consulting specialist. The emergency department will also refer you to a specialist when appropriate. This referral assures that you have the opportunity for follow-up care with a specialist. All of these measure are taken in an effort to provide you with opti mal care, which includes your follow-up. Under all circumstances we always encourage you to contact your private physician who remains a resource for coordinating your care. When calling for follow-up care, please make the office aware that this follow-up is from your recent emergency room visit. If for any reason you are refused follow-up, please contact the [facility] Emergency Department at and asked to speak to the emergency department charge nurse. Sepsis Event Note (ED) - Evaluation Sepsis Screening Result: No Definite Risk - Focused Exam Vital Signs: Vital Signs Temp Pulse Resp BP Pulse Ox 03/21/20 23:25 36.8 C 108 H 18 129/79 95
[2020-03-22 01:14] VITALS: BP 121/85; PULSE 102
== END 2020-03-22 01:07 | disposition home or self-care (01) ==
LOC: MW.ED 23:08
DX: R30.0 Dysuria (principal); F17.210 Nicotine dependence, cigarettes, uncomplicated; Z88.2 Allergy status to sulfonamides; Z79.899 Other long term (current) drug therapy
CPT/HCPCS: 81001; 99283; A9270

== ENCOUNTER 2023-08-23 18:28 | Emergency (ER) | payer OTHER ==
[2023-08-23 21:09] LABS: CORONAVIRUS COVID-19 NAA NEGATIVE (NEGATIVE); INFLUENZA A NAA NEGATIVE (NEGATIVE); INFLUENZA B NAA NEGATIVE (NEGATIVE)
[2023-08-23] MEDS ORDERED: Doxycycline 100 MG Cap PO ONE (21:16)
[2023-08-23 21:36] VITALS: BP 148/88; PULSE 89
== END 2023-08-23 21:35 | disposition home or self-care (01) ==
LOC: MW.ED 18:28
DX: J40 Bronchitis, not specified as acute or chronic (principal); F17.210 Nicotine dependence, cigarettes, uncomplicated; Z88.2 Allergy status to sulfonamides; Z79.899 Other long term (current) drug therapy
CPT/HCPCS: 0240U; 71045; 99283; A9270

== ENCOUNTER 2024-11-29 10:19 | Day surgery (SDC) | payer BC, OTHER ==
[~2024-11-29 10:19] MED LIST: Ketamine HCL/NACL, ISO-OSM 50 MG/5 ML Syringe ONE; Lidocaine 2% 5 ML SDV ONE; Ondansetron 4 MG/2 ML SDV ONE; Sodium Chloride 0.9% 10 ML Syringe FLUSH PRN; Sodium Chloride 0.9% 2.5 ML Syringe FLUSH PRN; Sodium Chloride 0.9% 20 ML SDV IV PRN; propofoL 500 MG/50 ML 50 ML ONE
[2024-11-29] MEDS: Lactated Ringers 1,000 ML IV SCH (10:55)
[2024-11-29] MEDS ORDERED: propofoL 500 MG/50 ML 50 ML ONE (12:08)
[2024-11-29 12:49] VITALS: PULSE 72
[2024-11-29] MEDS ORDERED: Metoclopramide 10 MG/2 ML SDV ONE (13:14)
[2024-11-29 13:21] VITALS: BP 131/73
== END 2024-11-29 13:06 | disposition home or self-care (01) ==
LOC: MW.SDS 10:19
PROVIDERS: ATTEND Surgery
DX: R19.7 Diarrhea, unspecified (principal); R19.4 Change in bowel habit; F31.9 Bipolar disorder, unspecified; E66.01 Morbid (severe) obesity due to excess calories; Z68.43 Body mass index [BMI] 50.0-59.9, adult; F17.210 Nicotine dependence, cigarettes, uncomplicated; Z79.899 Other long term (current) drug therapy; Z88.2 Allergy status to sulfonamides; Z88.8 Allergy status to other drugs, medicaments and biological substances
CPT/HCPCS: 45380; 84702; J2003; J2405; J2704; J2765; J7120; 00811; J3490

== ENCOUNTER 2025-07-11 18:52 | Emergency (ER) | payer BC, OTHER ==
[2025-07-11 19:57] LABS: BASE EXCESS VENOUS 3.3 (-2.0-3.0); BICARBONATE,VENOUS 27.0 mEq/L (22-29); PCO2 VENOUS 37.0 mmHG (41-51); PH,VENOUS 7.47 (7.32-7.43); PO2 VENOUS 70.0 mmHG (35-45)
[2025-07-11 20:05] LABS: BASOPHILS ABSOLUTE AUTO 0.02 K/uL (0.00-0.20); BASOPHILS PERCENT AUTO 0.2 % (0.0-1.0); EOSINOPHILS ABSOLUTE AUTO 0.19 K/uL (0.00-0.45); EOSINOPHILS PERCENT AUTO 2.2 % (0.0-6.0); IMMATURE GRAN ABSOLUTE AUTO 0.03 K/uL (0.00-0.05); IMMATURE GRAN PERCENT AUTO 0.4 % (0.0-0.4); LYMPHOCYTES ABSOLUTE AUTO 2.63 K/uL (1.00-4.80); LYMPHOCYTES PERCENT AUTO 31.0 % (24.0-44.0); MEAN PLATELET VOLUME 10.3 fL (9.4-12.3); MONOCYTES ABSOLUTE AUTO 0.67 K/uL (0.00-0.80); MONOCYTES PERCENT AUTO 7.9 % (0.0-8.0); NEUTROPHILS ABSOLUTE AUTO 4.95 K/uL (1.80-7.70); NEUTROPHILS PERCENT AUTO 58.3 % (41.0-71.0); NRBC ABSOLUTE 0.00 K/uL (0.00-0.02); NRBC PERCENT 0.0 /100WBC (0.0-0.2); PLATELET COUNT,PLT 252 K/uL (150-400); RED BLOOD CELL COUNT 4.32 M/uL (4.10-5.30); WHITE BLOOD CELL COUNT,WBC 8.49 K/uL (3.9-11.3)
[2025-07-11 20:14] LABS: BLOOD UREA NITROGEN,BUN 13.0 mg/dL (7.0-18.0); CARBON DIOXIDE,CO2 24.7 mmol/L (21.0-32.0); CHLORIDE,CL 93.0 mmol/L (98-107); CREATININE 1.1 mg/dL (0.6-1.0); EST CRCL DRUG DOSING (CG) 60.56 mL/min; POTASSIUM,K 4.4 mmol/L (3.5-5.1); SODIUM,NA 129.0 mmol/L (136-145)
[2025-07-11] MEDS ORDERED: Sodium Chloride 0.9% 2.5 ML Syringe FLUSH PRN (20:16)
[2025-07-11] MEDS ORDERED: Sodium Chloride 0.9% 10 ML Syringe FLUSH PRN (20:16)
[2025-07-11 20:17] LABS: ESTIMATED GFR 65.0 mL/min (>60); GLUCOSE RANDOM 561.0 mg/dL (74-106)
[2025-07-11] MEDS: Insulin Regular, Human 100 Units/ML 10 ML Vial IVPUSH ONE (20:35)
[2025-07-11 20:51] LABS: APPEARANCE,URINE CLEAR; GLUCOSE,URINE >=1000 mg/dL (NEGATIVE); OCCULT BLOOD,URINE MODERATE (NEGATIVE)
[2025-07-11 21:00] LABS: EPITHELIAL CELLS,URINE FEW (NONE-FEW)
[2025-07-11 21:01] LABS: YEAST,URINE OCCASIONAL
[2025-07-11 22:13] VITALS: BP 152/98; PULSE 77
== END 2025-07-11 22:09 | disposition home or self-care (01) ==
LOC: MW.ED 18:52
DX: E11.65 Type 2 diabetes mellitus with hyperglycemia (principal); F17.200 Nicotine dependence, unspecified, uncomplicated; Z88.2 Allergy status to sulfonamides; Z88.8 Allergy status to other drugs, medicaments and biological substances; Z79.84 Long term (current) use of oral hypoglycemic drugs; Z79.899 Other long term (current) drug therapy
CPT/HCPCS: 36415; 80048; 81001; 82803; 82947; 84703; 85025; 96360; 99284; J7030; 99283; J1815-GY